=== PATIENT | male | born 1960 | race Caucasian/White ===

== ENCOUNTER 2017-07-29 10:36 | Outpatient (RCR) | payer BC, SELFPAY ==
[2017-07-29 12:59] LABS: International Normalized Ratio 2.5
== END 2017-07-29 11:00 | disposition home or self-care (01) ==
LOC: LAB 10:36
PROVIDERS: Family Provider Family Medicine; PCP Family Medicine; Visit Provider Internal Medicine Cardiovascular Disease
DX: I48.1 Persistent atrial fibrillation (principal)
CPT/HCPCS: 36415; 85610

== ENCOUNTER 2017-09-19 13:19 | Outpatient (RCR) | payer BC, SELFPAY ==
[2017-09-19 14:00] LABS: International Normalized Ratio 3.2; Prothrombin Time (Protime)PT. 32.7 SECONDS (11.7-14.9)
== END 2017-09-19 14:00 | disposition home or self-care (01) ==
LOC: LAB 13:19
PROVIDERS: Family Provider Family Medicine; PCP Family Medicine; Visit Provider Internal Medicine Cardiovascular Disease
DX: I48.92 Unspecified atrial flutter (principal); I48.91 Unspecified atrial fibrillation; Z79.01 Long term (current) use of anticoagulants
CPT/HCPCS: 36415; 85610

== ENCOUNTER 2017-12-13 10:23 | Outpatient (RCR) | payer BC, SELFPAY ==
[2017-12-13 11:04] LABS: International Normalized Ratio 3.4; Prothrombin Time (Protime)PT. 34.4 SECONDS (11.7-14.9)
== END 2017-12-13 11:00 | disposition home or self-care (01) ==
LOC: LAB 10:23
PROVIDERS: Family Provider Family Medicine; PCP Family Medicine; Visit Provider Internal Medicine Cardiovascular Disease
DX: I48.92 Unspecified atrial flutter (principal); I48.91 Unspecified atrial fibrillation; Z79.01 Long term (current) use of anticoagulants
CPT/HCPCS: 36415; 85610

== ENCOUNTER 2018-01-17 10:06 | Outpatient (RCR) | payer BC, SELFPAY ==
[2018-01-17 11:23] LABS: International Normalized Ratio 2.5; Prothrombin Time (Protime)PT. 27.5 SECONDS (11.7-14.9)
== END 2018-01-17 11:00 | disposition home or self-care (01) ==
LOC: LAB 10:06
PROVIDERS: Family Provider Family Medicine; PCP Family Medicine; Visit Provider Internal Medicine Cardiovascular Disease
DX: I48.92 Unspecified atrial flutter (principal); I48.91 Unspecified atrial fibrillation; Z79.01 Long term (current) use of anticoagulants
CPT/HCPCS: 36415; 85610

== ENCOUNTER 2018-02-28 09:40 | Outpatient (RCR) | payer BC, SELFPAY ==
[2018-02-28 10:13] LABS: Prothrombin Time (Protime)PT. 31.6 SECONDS (11.7-14.9)
== END 2018-02-28 11:00 | disposition home or self-care (01) ==
LOC: LAB 09:40
PROVIDERS: Family Provider Family Medicine; PCP Family Medicine; Visit Provider Internal Medicine Cardiovascular Disease
DX: I48.92 Unspecified atrial flutter (principal); I48.91 Unspecified atrial fibrillation; Z79.01 Long term (current) use of anticoagulants
CPT/HCPCS: 36415; 85610

== ENCOUNTER 2018-05-05 15:08 | Outpatient (RCR) | payer BC, SELFPAY ==
[2018-04-27 12:47] LABS: International Normalized Ratio 3.8
== END 2018-05-05 17:00 | disposition home or self-care (01) ==
LOC: LAB 15:08
PROVIDERS: Family Provider Family Medicine; PCP Family Medicine; Visit Provider Internal Medicine Cardiovascular Disease
DX: I48.92 Unspecified atrial flutter (principal); I48.91 Unspecified atrial fibrillation; Z79.01 Long term (current) use of anticoagulants
CPT/HCPCS: 36415; 85610

== ENCOUNTER → 2018-05-19 06:37 | Outpatient (CLI) | payer BC, SELFPAY ==
--- NOTE | 2018-05-19 14:12 | STRESSREP ---
Stress Test Report Date: 05/19/2018 Procedure: Pharmacologic stress nuclear imaging study Indications: Chest pain; cardiomyopathy; ablation; ICD Consent: Per the patient Procedure: The patient underwent pharmacologic (Regadenoson) evaluation with a peak heart rate of 93 beats per minute (57 predicted maximal heart rate) and a peak blood pressure of 142/100 mmHg. The baseline ECG demonstrated an underlying electronic ventricular paced rhythm. The peak pharmacologic ECG demonstrated no obvious ECG changes. There were no cardiac dysrhythmias pretest, during pharmacologic infusion, or recovery. There was no complaint of chest discomfort during pharmacologic infusion or recovery. The examination was discontinued secondary to completion of protocol. Impression: 1. Pharmacologic (Regadenoson) evaluation 2. Peak pharmacologic ECG with a continued electronic ventricular paced rhythm with no obvious ECG changes. 3. There were no cardiac dysrhythmias pretest, during pharmacologic infusion, or recovery. 4. Nuclear images pending Myocardial perfusion imaging study: Technique: The patient was injected with 14.1 millicuries of technetium 99m Cardiolite and subsequently rest SPECT Cardiolite nuclear imaging was obtained in the horizontal long, vertical long, and short axis views. The patient underwent pharmacologic (Regadenoson) evaluation with a peak heart rate of 93 beats per minute (57 % percent predicted maximal heart rate) and a peak blood pressure of 142/100 mmHg. The patient was injected with 41.7 millicuries of technetium 99m Cardiolite and subsequently stress SPECT Cardiolite nuclear imaging was obtained in the horizontal long, vertical long, and short axis views. A gated Cardiolite study at peak stress was obtained. Interpretation: Rest and stress SPECT Cardiolite nuclear imaging status post realignment, normalization, and attenuation correction demonstrate an area of diminished tracer uptake near the mid lateral segments as well as the apical segments without significant change between rest and stress. There are similar type findings on the resting and stress polar map images. There is end systolic thickening and brightening. The gated Cardiolite study demonstrates myocardial thickening and inward wall motion. The reported LVEF is 63%. Impression: 1. Rest and stress SPECT Cardiolite nuclear imaging demonstrate the appearance of an area of diminished tracer uptake near the mid lateral segments as well as the apical segments without significant change between rest and stress potentially compatible with areas of previous myocardial injury/infarction although the effects of soft tissue attenuation/artifact and apical thinning cannot necessarily be excluded. There are no myocardial perfusion changes considered diagnostic for stress-induced myocardial ischemia. 2. The gated Cardiolite study reports an LVEF of 63 %. 3. Of note: Based upon the SPECT images-right ventricular enlargement cannot be excluded. This note was generated with riskmethodsation software. It may contain incorrect words, spelling, and punctuation that were not noted in checking the note before signing.
--- NOTE | 2018-05-19 14:27 | STRESSREP_ITS ---
Stress Test Report Date: 05/19/2018 Procedure: Pharmacologic stress nuclear imaging study Indications: Chest pain; cardiomyopathy; ablation; ICD Consent: Per the patient Procedure: The patient underwent pharmacologic (Regadenoson) evaluation with a peak heart rate of 93 beats per minute (57 predicted maximal heart rate) and a peak blood pressure of 142/100 mmHg. The baseline ECG demonstrated an underlying electronic ventricular paced rhythm. The peak pharmacologic ECG demonstrated no obvious ECG changes. There were no cardiac dysrhythmias pretest, during pharmacologic infusion, or recovery. There was no complaint of chest discomfort during pharmacologic infusion or recovery. The examination was discontinued secondary to completion of protocol. Impression: 1. Pharmacologic (Regadenoson) evaluation 2. Peak pharmacologic ECG with a continued electronic ventricular paced rhythm with no obvious ECG changes. 3. There were no cardiac dysrhythmias pretest, during pharmacologic infusion, or recovery. 4. Nuclear images pending Myocardial perfusion imaging study: Technique: The patient was injected with 14.1 millicuries of technetium 99m Cardiolite and subsequently rest SPECT Cardiolite nuclear imaging was obtained in the horizontal long, vertical long, and short axis views. The patient underwent pharmacologic (Regadenoson) evaluation with a peak heart rate of 93 beats per minute (57 % percent predicted maximal heart rate) and a peak blood pressure of 142/100 mmHg. The patient was injected with 41.7 millicuries of technetium 99m Cardiolite and subsequently stress SPECT Cardiolite nuclear imaging was obtained in the horizontal long, vertical long, and short axis views. A gated Cardiolite study at peak stress was obtained. Interpretation: Rest and stress SPECT Cardiolite nuclear imaging status post realignment, normalization, and attenuation correction demonstrate an area of diminished tracer uptake near the mid lateral segments as well as the apical segments without significant change between rest and stress. There are similar type findings on the resting and stress polar map images. There is end systolic thic kening and brightening. The gated Cardiolite study demonstrates myocardial thickening and inward wall motion. The reported LVEF is 63%. Impression: 1. Rest and stress SPECT Cardiolite nuclear imaging demonstrate the appearance of an area of diminished tracer uptake near the mid lateral segments as well as the apical segments without significant change between rest and stress potentially compatible with areas of previous myocardial injury/infarction although the effects of soft tissue attenuation/artifact and apical thinning cannot necessarily be excluded. There are no myocardial perfusion changes considered diagnostic for stress-induced myocardial ischemia. 2. The gated Cardiolite study reports an LVEF of 63 %. 3. Of note: Based upon the SPECT images-right ventricular enlargement cannot be excluded. This note was generated with [employer] software. It may contain incorrect words, spelling, and punctuation that were not noted in checking the note before signing.
== END ==
PROVIDERS: Family Provider Family Medicine; PCP Family Medicine; Referring Provider Physician Assistant Medical; Visit Provider Physician Assistant Medical
DX: E11.9 Type 2 diabetes mellitus without complications (principal); R07.9 Chest pain, unspecified; I42.8 Other cardiomyopathies; E78.2 Mixed hyperlipidemia; Z95.810 Presence of automatic (implantable) cardiac defibrillator; I25.10 Atherosclerotic heart disease of native coronary artery without angina pectoris
CPT/HCPCS: 78452; 93017; A9500; A4216; J2785

== ENCOUNTER 2018-06-20 10:28 | Outpatient (RCR) | payer BC, SELFPAY ==
[2018-06-12 13:32] VITALS: BMI 45.8
[2018-06-20 11:31] LABS: Prothrombin Time (Protime)PT. 37.5 SECONDS (11.7-14.9)
[2018-06-20 11:52] LABS: International Normalized Ratio 3.8
== END 2018-06-20 11:00 | disposition home or self-care (01) ==
LOC: LAB 10:28
PROVIDERS: Family Provider Family Medicine; PCP Family Medicine; Referring Provider Internal Medicine Cardiovascular Disease; Visit Provider Internal Medicine Cardiovascular Disease
DX: I48.92 Unspecified atrial flutter (principal); I48.91 Unspecified atrial fibrillation; Z79.01 Long term (current) use of anticoagulants
CPT/HCPCS: 36415; 85610

== ENCOUNTER 2018-07-25 10:33 | Outpatient (RCR) | payer BC, SELFPAY ==
[2018-06-12 13:32] VITALS: BMI 45.8
[2018-07-16 16:55] LABS: International Normalized Ratio 1.6; Prothrombin Time (Protime)PT. 18.6 SECONDS (11.7-14.9)
[2018-07-25 11:05] LABS: International Normalized Ratio 2.2; Prothrombin Time (Protime)PT. 24.5 SECONDS (11.7-14.9)
== END 2018-07-25 11:00 | disposition home or self-care (01) ==
LOC: LAB 10:33
PROVIDERS: Family Provider Family Medicine; PCP Family Medicine; Referring Provider Internal Medicine Cardiovascular Disease; Visit Provider Internal Medicine Cardiovascular Disease
DX: I48.92 Unspecified atrial flutter (principal); I48.91 Unspecified atrial fibrillation; Z79.01 Long term (current) use of anticoagulants
CPT/HCPCS: 36415; 85610

== ENCOUNTER 2018-10-10 10:22 | Outpatient (RCR) | payer BC, SELFPAY ==
[2018-06-12 13:32] VITALS: BMI 45.8
[2018-08-21 15:18] VITALS: BMI 45.0
[2018-10-10 11:18] LABS: International Normalized Ratio 2.2; Prothrombin Time (Protime)PT. 24.4 SECONDS (11.7-14.9)
== END 2018-10-10 11:00 | disposition home or self-care (01) ==
LOC: LAB 10:22
PROVIDERS: Family Provider Family Medicine; PCP Family Medicine; Referring Provider Internal Medicine Cardiovascular Disease; Visit Provider Internal Medicine Cardiovascular Disease
DX: I48.92 Unspecified atrial flutter (principal); I48.91 Unspecified atrial fibrillation; Z79.01 Long term (current) use of anticoagulants
CPT/HCPCS: 36415; 85610

== ENCOUNTER 2018-12-22 11:32 | Outpatient (RCR) | payer BC, SELFPAY ==
[2018-08-21 15:18] VITALS: BMI 45.0
[2018-12-22 13:11] LABS: International Normalized Ratio 1.8
== END 2018-12-22 12:00 | disposition home or self-care (01) ==
LOC: LAB 11:32
PROVIDERS: Physician Assistant Medical; Family Provider Family Medicine; PCP Family Medicine; Referring Provider Internal Medicine Cardiovascular Disease; Visit Provider Internal Medicine Cardiovascular Disease
DX: Z79.01 Long term (current) use of anticoagulants (principal)
CPT/HCPCS: 36415; 85610

== ENCOUNTER 2019-01-30 09:29 | Outpatient (RCR) | payer BC, SELFPAY ==
[2018-08-21 15:18] VITALS: BMI 45.0
[2019-01-30 10:29] LABS: International Normalized Ratio 2.3; Prothrombin Time (Protime)PT. 25.2 SECONDS (11.7-14.9)
== END 2019-02-10 17:35 | disposition home or self-care (01) ==
LOC: LAB 09:29
PROVIDERS: Family Provider Family Medicine; PCP Family Medicine; Referring Provider Internal Medicine Cardiovascular Disease; Visit Provider Internal Medicine Cardiovascular Disease
DX: Z79.01 Long term (current) use of anticoagulants (principal)
CPT/HCPCS: 36415; 85610

== ENCOUNTER 2019-06-19 11:39 | Outpatient (RCR) | payer BC, SELFPAY ==
[2018-08-21 15:18] VITALS: BMI 45.0
[2019-04-16 14:01] VITALS: BMI 44.7
[2019-06-19 12:13] LABS: Prothrombin Time (Protime)PT. 22.3 SECONDS (11.7-14.9)
== END 2019-06-19 18:00 | disposition home or self-care (01) ==
LOC: LAB 11:39
PROVIDERS: Family Provider Family Medicine; PCP Family Medicine; Referring Provider Internal Medicine Cardiovascular Disease; Visit Provider Internal Medicine Cardiovascular Disease
DX: Z79.01 Long term (current) use of anticoagulants (principal)
CPT/HCPCS: 36415; 85610

== ENCOUNTER 2019-08-04 09:40 | Outpatient (RCR) | payer BC, SELFPAY ==
[2019-04-16 14:01] VITALS: BMI 44.7
[2019-08-04 10:46] LABS: International Normalized Ratio 2.5
== END 2019-08-04 18:00 | disposition home or self-care (01) ==
LOC: LAB 09:40
PROVIDERS: Family Provider Family Medicine; PCP Family Medicine; Referring Provider Internal Medicine Cardiovascular Disease; Visit Provider Internal Medicine Cardiovascular Disease
DX: Z79.01 Long term (current) use of anticoagulants (principal)
CPT/HCPCS: 36415; 85610

== ENCOUNTER 2019-11-27 11:47 | Outpatient (RCR) | payer BC, SELFPAY ==
[2019-04-16 14:01] VITALS: BMI 44.7
[2019-11-26 10:23] VITALS: BMI 44.7
[2019-11-27 12:32] LABS: International Normalized Ratio 2.2; Prothrombin Time (Protime)PT. 23.8 SECONDS (11.7-14.9)
== END 2019-11-27 18:00 | disposition home or self-care (01) ==
LOC: LAB 11:47
PROVIDERS: Physician Assistant Medical; Family Provider Family Medicine; PCP Family Medicine; Referring Provider Internal Medicine Cardiovascular Disease; Visit Provider Internal Medicine Cardiovascular Disease
DX: Z79.01 Long term (current) use of anticoagulants (principal)
CPT/HCPCS: 36415; 85610

== ENCOUNTER → 2020-10-13 14:27 | Outpatient (CLI) | payer BC, SELFPAY ==
[2020-09-29 08:35] VITALS: BMI 43.8
--- NOTE | 2020-10-13 14:29 | ECHOCS_ITS ---
Reason For Study: CHF Procedure This was a 2D Doppler, Color Flow transthoracic echocardiogram. The exam was of poor technical quality due to suboptimal acoustic windows.. Contrast injection was performed. Exam performed in department. Left Ventricle Normal LV size. Left ventricular systolic function is normal. The estimated ejection fraction is 53 %. No regional wall motion abnormalities noted. Right Ventricle Normal RV size. ICD or pacer leads identified within the right ventricle. Normal systolic function. Atria The left atrium is not well visualized. Mitral Valve Mitral valve not well visualized. Tricuspid Valve The tricuspid valve is not well visualized. Aortic Valve The aortic valve is not well visualized. Pulmonic Valve The pulmonic valve is not well visualized. Great Vessels Normal aortic root. The pulmonary artery is normal size. Pericardium/Pleural No pericardial effusion. Medication 22 gauge I.V. with prn adaptor inserted into right arm. Diluted definity 5.0ml given slow IV push to enhance endocardial definition. MMode/2D Measurements & Calculations Ao root diam: 3.3 cm LA dimension(2D): 5.2 cm Time Measurements MV dec time: 0.17 sec Doppler Measurements & Calculations MV E max kvng: 97.0 cm/sec Lat Peak E' Kvng: 12.4 cm/sec Med Peak E' Kvng: 10.4 cm/sec MV A max kvng: 30.0 cm/sec E/E' lat: 7.8 E/E' med: 9.3 MV E/A: 3.2 Ao V2 max: 107.8 cm/sec LV V1 max: 75.0 cm/sec PA V2 max: 78.8 cm/sec Ao max P.7 mmHg LV V1 max P.2 mmHg TR max kvng: 344.0 cm/sec TR max P.4 mmHg ECHO/Echo Complete W/ Contrast Interpretation Summary Normal LV size. Left ventricular systolic function is normal. The estimated ejection fraction is 53 %. Contrast injection was performed. The study was technically limited. The study was technically difficult. Ordering Physician: Antonio Leon Referring Physician: ROB SMILEY Performed By: Hermila Mayers, RDCS, RVT
== END ==
PROVIDERS: PCP Family Medicine; Referring Provider Internal Medicine Cardiovascular Disease; Visit Provider Internal Medicine Cardiovascular Disease
DX: I50.9 Heart failure, unspecified (principal); I42.8 Other cardiomyopathies
CPT/HCPCS: 93306; Q9957; A4216; C8929

== ENCOUNTER → 2021-04-27 14:34 | Outpatient (CLI) | payer BC, SELFPAY ==
[2021-04-27 14:58] LABS: Absolute Lymphocyte Count 1.63 X10^3/uL (0.83-4.51); Absolute Neutrophil Count 5.1 X10^3/uL (2.0-7.7); Basophil# 0.01 X10^3/uL; Basophil% 0.1 % (0-1); Eosinophil# 0.28 X10^3/uL; Eosinophils% 3.7 % (0-5); Hematocrit 40.1 % (40-54); Hemoglobin 13.4 g/dL (13.0-16.5); Lymphocyte # 1.63 X10^3/ul (0.83-4.51); Lymphocyte % 21.4 % (19-41); Mean Corp Hgb Conc 33.4 g/dL (32-36); Mean Corpuscular Hgb 30.2 pg (27.0-32.0); Mean Corpuscular Volume 90.3 fL (80-94); Mean Platelet Vol. 10.8 fl (6.2-12.0); Monocyte# 0.63 X10^3/uL; Monocyte% 8.3 % (0-10); NRBC Flagged by Analyzer 0 % (0-5); Neutrophil # 5.05 X10^3/uL (2.7-7.7); Neutrophil % 66.1 % (47-70); Platelet Count 141 K/mm3 (150-450); RBC Distribution Width CV 13.1 % (11.6-14.6); RBC Distribution Width SD 43.4 fl (35.1-43.9); Red Blood Count 4.44 M/mm3 (4.6-6.2); White Blood Count 7.6 K/mm3 (4.4-11.0)
[2021-04-27 15:17] LABS: Anion Gap 4 (5-15); BUN 25 mg/dL (7-18); BUN/Creat Ratio 18.9 RATIO (10-20); Calcium,Total 8.4 mg/dL (8.5-10.1); Chloride 113 mmol/L (98-107); Creatinine, Serum 1.32 mg/dL (0.70-1.30); EST Glomerular Filtration Rate 59 mL/min (>60); Est Glom Filt Rate - Afr Amer 71 mL/min (>60); Glucose 205 mg/dL (74-106); Potassium 4.5 mmol/L (3.5-5.1); Sodium Level 140 mmol/L (136-145)
[2021-04-27 15:21] LABS: Prothrombin Time (Protime)PT. 30.4 SECONDS (11.7-14.9)
== END ==
PROVIDERS: PCP Family Medicine; Referring Provider Nurse Practitioner Gerontology; Visit Provider Nurse Practitioner Gerontology
DX: R53.83 Other fatigue (principal); I95.1 Orthostatic hypotension; Z79.01 Long term (current) use of anticoagulants
CPT/HCPCS: 36415; 80048; 85025; 85610

== ENCOUNTER → 2021-11-05 | Outpatient (CLI) | payer OTHER, SELFPAY ==
[2021-11-05 17:20] LABS: Absolute Lymphocyte Count 1.79 X10^3/uL (0.83-4.51); Absolute Neutrophil Count 5.2 X10^3/uL (2.0-7.7); Basophil# 0.03 X10^3/uL; Basophil% 0.4 % (0-1); Eosinophils% 2.6 % (0-5); Hematocrit 40.7 % (40-54); Hemoglobin 13.5 g/dL (13.0-16.5); Lymphocyte # 1.79 X10^3/ul (0.83-4.51); Lymphocyte % 22.9 % (19-41); Mean Corp Hgb Conc 33.2 g/dL (32-36); Mean Corpuscular Hgb 29.9 pg (27.0-32.0); Mean Corpuscular Volume 90.2 fL (80-94); Mean Platelet Vol. 10.8 fl (6.2-12.0); Monocyte# 0.63 X10^3/uL; NRBC Flagged by Analyzer 0 % (0-5); Neutrophil # 5.16 X10^3/uL (2.7-7.7); Neutrophil % 65.8 % (47-70); Platelet Count 143 K/mm3 (150-450); RBC Distribution Width CV 12.8 % (11.6-14.6); RBC Distribution Width SD 42.2 fl (35.1-43.9); Red Blood Count 4.51 M/mm3 (4.6-6.2); White Blood Count 7.8 K/mm3 (4.4-11.0)
[2021-11-05 18:51] LABS: Anion Gap 8 (5-15); BUN 21 mg/dL (7-18); BUN/Creat Ratio 16.5 RATIO (10-20); Calcium,Total 8.4 mg/dL (8.5-10.1); Chloride 108 mmol/L (98-107); Creatinine, Serum 1.27 mg/dL (0.70-1.30); EST Glomerular Filtration Rate 61 mL/min (>60); Est Glom Filt Rate - Afr Amer 74 mL/min (>60); Free T3 2.2 pg/mL (2.18-3.98); Glucose 241 mg/dL (74-106); Sodium Level 138 mmol/L (136-145); T4 Free Direct 0.94 ng/dL (0.76-1.46); Thyroid Stim Hormone (TSH) 2.38 uIU/mL (0.358-3.74)
== END | disposition home or self-care (01) ==
LOC: LAB 16:28
PROVIDERS: PCP Family Medicine; Visit Provider Nurse Practitioner Gerontology
DX: R53.83 Other fatigue (principal)
CPT/HCPCS: 36415; 80048; 84439; 84443; 84481; 85025

== ENCOUNTER 2022-09-26 10:38 | Day surgery (SDC) | payer OTHER, SELFPAY ==
[2022-09-19 12:16] LABS: Bacteria 0 SEEN /hpf (None Seen); Mucous, Urine 0 SEEN /hpf (<or=2+); Red Blood Cells-Urine 0 SEEN /hpf (0-5); White Blood Cells 0 SEEN /hpf (0-5)
[2022-09-19 12:53] LABS: Color, Urine Yellow (Yellow); Glucose, Dipstick 250 mg/dl (Normal); Hematocrit 44.1 % (40-54); Hemoglobin 14.7 g/dL (13.0-16.5); Ketone-Dipstick Negative (Negative); Leukocyte Esterase-Dipstick Negative /ul (Negative); Mean Corp Hgb Conc 33.3 g/dL (32-36); Mean Corpuscular Hgb 29.8 pg (27.0-32.0); Mean Corpuscular Volume 89.5 fL (80-94); Mean Platelet Vol. 10.9 fl (6.2-12.0); Nitrite-Dipstick Negative (Negative); Occult Blood-Urine Negative /ul (Negative); Platelet Count 141 K/mm3 (150-450); Protein-Dipstick 15 mg/dl (Negative); RBC Distribution Width CV 12.8 % (11.6-14.6); RBC Distribution Width SD 42.3 fl (35.1-43.9); Red Blood Count 4.93 M/mm3 (4.6-6.2); Urine Bilirubin Dipstick Negative (Negative); Urine Clarity Sl. Cloudy (Clear); Urine Urobilinogen Normal (Normal); White Blood Count 7.4 K/mm3 (4.4-11.0)
[2022-09-19 13:09] LABS: Squamous Epithelial Cells - UA 0-5 SEEN /hpf (0-5)
[2022-09-19 13:32] LABS: Anion Gap 6 (5-15); BUN 22 mg/dL (7-18); BUN/Creat Ratio 18.6 RATIO (10-20); Calcium,Total 9.1 mg/dL (8.5-10.1); Chloride 108 mmol/L (98-107); Creatinine, Serum 1.18 mg/dL (0.70-1.30); EST Glomerular Filtration Rate 66 mL/min (>60); Est Glom Filt Rate - Afr Amer 80 mL/min (>60); Glucose 201 mg/dL (74-106); Potassium 4.7 mmol/L (3.5-5.1); Sodium Level 139 mmol/L (136-145)
[2022-09-19 13:40] LABS: International Normalized Ratio 1.9
[2022-09-25 07:38] VITALS: BMI 42.7
[2022-09-26 10:50] LABS: INR Fingerstick 2.3; Prothrombin Time Fingerstick 24.7 SEC (11.7-14.9)
--- NOTE | 2022-09-26 13:38 | EX.DEFIBPROC ---
Defibrillator Procedure Note Defibrillator Procedure Note Diagnosis: Nonischemic Cardiomyopathy with NYHA Class iii. ICD for primary prevention. Device generator replacement for normal battery depletion Preoperative diagnosis is device at end of life for normal battery depletion. Postoperative diagnosis same as above. After informed consent and IV antibiotics the patient was brought to the [facility] [place] catheterization laboratory and the skin over the device was prepped and draped in the usual sterile manner. Intermittent boluses of Versed, and fentanyl were used for sedation and analgesia as well as 1% subcutaneous lidocaine. An incision was made over the pre-existing device. Using blunt and Bovie dissection the pocket was opened and the device was removed. Careful attention was paid not to injure the pre-existing leads. The leads were removed from the device header and they were interrogated. There is normal lead function. Hemostasis was obtained. The pocket was flushed with antibiotic solution. The sponge and needle count were correct. The new device was brought to the field. The leads were placed in the appropriate position in the header and secured by the set screw. The leads and the device were then placed in the pocket. The pocket was closed with a deep layer of running 2-0 Vicryl, a superficial layer of running 4-0 Vicryl, skin with Steri-Strips which were covered with a rolled 4 x 4 and Tegaderm. Patient left the room with the device programmed to proper parameters and there were no complications. The pt's permanent atrial rhythm is fibrillation. The device is a [employer] [place] [employer] ICD generator. All lead parameters were tested and found to be functionally normal. Lead and device serial and model numbers are available in the chart documents provided by the device company sales representative marine supplies procedure summary.
== END 2022-09-26 15:30 | disposition home or self-care (01) ==
LOC: CLSP 10:39
PROVIDERS: Internal Medicine Cardiovascular Disease; PCP Family Medicine; Referring Provider Internal Medicine Cardiovascular Disease; Visit Provider Internal Medicine Cardiovascular Disease
DX: I48.11 Longstanding persistent atrial fibrillation (principal); I42.8 Other cardiomyopathies; I48.92 Unspecified atrial flutter; Z79.4 Long term (current) use of insulin; E11.9 Type 2 diabetes mellitus without complications; Z95.810 Presence of automatic (implantable) cardiac defibrillator; Z82.49 Family history of ischemic heart disease and other diseases of the circulatory system; Z79.01 Long term (current) use of anticoagulants; E66.9 Obesity, unspecified; E78.2 Mixed hyperlipidemia; Z86.74 Personal history of sudden cardiac arrest
CPT/HCPCS: 33264; 36415; 36416; 80048; 81001; 85027; 85610; 93641; 99152; 99153; J7040; J7050

== ENCOUNTER → 2022-10-10 | Outpatient (CLI) | payer OTHER, SELFPAY ==
[2022-10-10 12:22] LABS: Hematocrit 42.6 % (40-54); Hemoglobin 13.8 g/dL (13.0-16.5); Mean Corp Hgb Conc 32.4 g/dL (32-36); Mean Corpuscular Hgb 30.1 pg (27.0-32.0); Mean Corpuscular Volume 92.8 fL (80-94); Mean Platelet Vol. 11.6 fl (6.2-12.0); Platelet Count 174 K/mm3 (150-450); RBC Distribution Width CV 13.1 % (11.6-14.6); RBC Distribution Width SD 44.1 fl (35.1-43.9); Red Blood Count 4.59 M/mm3 (4.6-6.2); White Blood Count 7.6 K/mm3 (4.4-11.0)
== END | disposition home or self-care (01) ==
PROVIDERS: PCP Family Medicine; Referring Provider Internal Medicine Cardiovascular Disease; Visit Provider Internal Medicine Cardiovascular Disease
DX: Z95.810 Presence of automatic (implantable) cardiac defibrillator (principal); I50.22 Chronic systolic (congestive) heart failure; I48.11 Longstanding persistent atrial fibrillation; I47.20 Ventricular tachycardia, unspecified; Z98.890 Other specified postprocedural states
CPT/HCPCS: 36415; 85027

== ENCOUNTER 2022-10-17 18:41 | Emergency (ER) | payer OTHER, SELFPAY ==
[2022-10-17] VITALS (7 sets, daily range): BP systolic 176; BP diastolic 73; PULSE 59–68; RESP 18–22; TEMP 37.3; O2SAT 90–96; BMI 30.4
--- NOTE | 2022-10-17 19:39 | RAD_ITS ---
STUDY: X-RAY CHEST REASON FOR EXAM: Male, 62 years old. SOB TECHNIQUE: Single AP portable view of the chest. COMPARISON: January 05, 2015 FINDINGS: Dual chamber pacemaker device on the left is stable. The lungs are clear and expanded. There is no demonstrated pleural abnormality. Normal size heart. There are calcified mediastinal lymph nodes. Normal visualized pulmonary arteries. Normal visualized aortic arch and descending thoracic aorta. Normal visualized thoracic spine. Normal visualized ribs, clavicles, and shoulders. There is no demonstrated abnormality of the visualized soft tissue structures of the upper abdomen. RAD/Chest 1 View (Portable) IMPRESSION: Degenerative changes, as described above. No demonstrated acute cardiopulmonary process. Electronically Signed: Jim Haddad MD at 20:29 EDT ,
[2022-10-17 19:46] LABS: Absolute Lymphocyte Count 0.93 X10^3/uL (0.83-4.51); Absolute Neutrophil Count 9.3 X10^3/uL (2.0-7.7); Basophil# 0.02 X10^3/uL; Basophil% 0.2 % (0-1); Eosinophil# 0.07 X10^3/uL; Eosinophils% 0.6 % (0-5); Hematocrit 39.9 % (40-54); Hemoglobin 13.4 g/dL (13.0-16.5); Lymphocyte # 0.93 X10^3/ul (0.83-4.51); Lymphocyte % 8.4 % (19-41); Mean Corp Hgb Conc 33.6 g/dL (32-36); Mean Corpuscular Volume 89.3 fL (80-94); Mean Platelet Vol. 10.7 fl (6.2-12.0); Monocyte# 0.67 X10^3/uL; Monocyte% 6.1 % (0-10); NRBC Flagged by Analyzer 0 % (0-5); Neutrophil % 84.4 % (47-70); Platelet Count 133 K/mm3 (150-450); RBC Distribution Width CV 12.8 % (11.6-14.6); RBC Distribution Width SD 42.2 fl (35.1-43.9); Red Blood Count 4.47 M/mm3 (4.6-6.2)
[2022-10-17 20:08] LABS: Anion Gap 5 (5-15); BUN 23 mg/dL (7-18); BUN/Creat Ratio 15.6 RATIO (10-20); Calcium,Total 8.6 mg/dL (8.5-10.1); Chloride 107 mmol/L (98-107); Creatinine, Serum 1.47 mg/dL (0.70-1.30); EST Glomerular Filtration Rate 52 mL/min (>60); Est Glom Filt Rate - Afr Amer 62 mL/min (>60); Estimated Creatinine Clearance 57.19 ml/min; Glucose 227 mg/dL (74-106); Potassium 4.5 mmol/L (3.5-5.1); Sodium Level 135 mmol/L (136-145); Troponin-I HS 19 pg/mL (3.0-78.0)
[2022-10-17 20:15] LABS: International Normalized Ratio 1.7; Prothrombin Time (Protime)PT. 19.2 SECONDS (11.7-14.9)
--- NOTE | 2022-10-17 20:45 | ED.VIS.DYS ---
HPI History of Present Illness Chief Complaint: Shortness of Breath Onset/Context/Timing Onset: Weeks (1) Context: gradual Timing: Continuous Quality: Positive for Dyspnea on exertion and Wheezing Worsened by: Exertion Relieved by: Nothing Associated Symptoms cough and rhinorrhea; Negative for post nasal drip, ear pain, fever, sore throat, chills, sweats, clear sputum, white sputum, yellow sputum or green sputum Chest Pain: Positive for None Narrative Narrative: Patient presents with shortness of breath that has been getting worse over the past week. Patient states his shortness of breath is worse with any exertion. Patient states he feels wheezing in his chest. Patient states nothing seems to help with it. Patient admits to a cough but denies any sputum production. Patient admits to some rhinorrhea. Patient denies any fevers or chills. Patient denies any sore throat or ear pain. Patient denies any chest pain. Patient denies any nausea or vomiting. 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 Longstanding persistent atrial fibrillation Mixed hyperlipidemia Morbid obesity Non-ischemic cardiomyopathy Non-sustained ventricular tachycardia Nonobstructive atherosclerosis of coronary artery Obstructive sleep apnea Orthostatic hypotension Paroxysmal atrial fibrillation Home Medications ropinirole 0.25 mg tablet See Rx Instructions PO QHS 09/10/17 [History Last Taken Unknown] dulaglutide 0.75 mg/0.5 mL subcutaneous pen injector (Trulicity) 0.75 mg subcut QWEEK 09/16/17 [History Last Taken Unknown] insulin lispro 100 unit/mL subcutaneous cartridge 18 unit subcut TID 09/16/17 [History Last Taken Unknown] metformin 500 mg tablet,extended release 24 hr 500 mg PO QDAY 09/16/17 [History Last Taken 09/25/22] sertraline 100 mg tablet 100 mg PO QDAY 09/16/17 [History Last Taken Unknown] apremilast 30 mg tablet (Otezla) 30 mg PO BID 06/22/18 [History Last Taken Unknown] gabapentin 300 mg capsule 300 mg PO DAILY 04/27/21 [History Last Taken Unknown] insulin glargine 100 unit/mL (3 mL) subcutaneous pen 55 unit subcut DAILY 08/03/21 [History Last Taken Unknown] warfarin 3 mg tablet 3 mg PO .COMPLEX #100 tabs 11/02/21 [Rx Last Taken 09/25/22] carvedilol 6.25 mg tablet 6.25 mg PO BID #180 tabs 07/16/22 [Rx Last Taken 09/26/22] lovastatin 40 mg tablet 40 mg PO DAILY #90 tabs 07/30/22 [Rx Last Taken Unknown] azithromycin 250 mg tablet 250 mg PO DAILY #4 TABLETS 10/18/22 [Rx Last Taken Unknown] Allergy/AdvReac Type Severity Reaction Status Date / Time Penicillins Allergy Unknown Verified 09/19/22 11:16 Sulfa (Sulfonamide Allergy Unknown Verified 09/19/22 11:16 Antibiotics) Family History Father , in his late 60's from an CA CAD (coronary artery disease) Myocardial infarction Sudden cardiac Mother , Age 80, hx of CAD CAD (coronary artery disease) Brother CAD (coronary artery disease) Atrial fibrillation H/O cardiac radiofrequency ablation Cardiac pacemaker Brother unknown health history Brother CAD (coronary artery disease) Atrial fibrillation Other Family history of CVA Family history of hypertension Surgical History History of cataract surgery History of radiofrequency ablation (RFA) procedure for cardiac arrhythmia (01/06/15) History of right and left heart catheterization (09/23/14) Hx of atrioventricular node ablation (01/06/15) Presence of biventricular implantable cardioverter-defibrillator (ICD) (01/06/15) Social History Smoking Status: Never smoker ROS ROS ED Constitutional Constitutional ED: Denies chills or fever(s) Eyes Eyes: Denies blurry vision or change in vision ENT ENT ED: Reports rhinorrhea; Denies sore throat Cardiovascular Cardiovascular: Denies chest pain or palpitations Respiratory/Chest Respiratory/Chest: Reports cough and dyspnea Gastrointestinal Gastrointestinal: Denies nausea or vomiting Genitourinary Genitourinary ED: Denies dysuria or hematuria Musculoskeletal Musculoskeletal: Denies back pain or neck pain Integumentary Denies abscess or rash Neurologic Neurologic: Denies headache(s) or weakness Allergic/Immunologic Allergic/Immunologic ED: Denies mouth swelling or urticaria EXAM Physical Exam Const Vital Signs: 10/17/22 18:42 10/17/22 19:01 10/17/22 19:01 Temperature 99.2 F H Temperature Source Temporal Pulse Rate 59 L 60 Respiratory Rate 18 22 H Respiratory Effort Short of Breath Labored Respiratory Depth Respiratory Pattern Tachypnea Blood Pressure 176/73 H Blood Pressure Mean 107 Pulse Ox 96 96 Oxygen Delivery Method Room Air Room Air 10/17/22 19:35 10/17/22 19:35 10/17/22 20:25 Temperature Temperature Source Pulse Rate 60 Respiratory Rate 18 20 H Respiratory Effort Respiratory Depth Respiratory Pattern Blood Pressure Blood Pressure Mean Pulse Ox 94 93 Oxygen Delivery Method Room Air Room Air Room Air 10/17/22 21:41 10/17/22 21:41 10/17/22 21:00 Temperature Temperature Source Pulse Rate 60 65 Respiratory Rate 18 20 H 20 H Respiratory Effort Normal Non-Labored Short of Breath Respiratory Depth Normal Respiratory Pattern Normal Normal Blood Pressure Blood Pressure Mean Pulse Ox 94 90 Oxygen Delivery Method Room Air Room Air 10/17/22 23:00 Temperature Temperature Source Pulse Rate 68 Respiratory Rate 20 H Respiratory Effort Respiratory Depth Respiratory Pattern Blood Pressure Blood Pressure Mean Pulse Ox 96 Oxygen Delivery Method Room Air Positive well nourished, well developed and obese General Appearance ED: well developed and NAD Nutritional Appearance: obese HEENT Reports moist mucous membranes Neck supple and no JVD Resp normal respiratory effort Auscultation: wheezes scattered wheezes Cardio regular rate and regular rhythm GI normal to inspection, nondistended, normoactive bowel sounds and non-tender Palpation: soft Extremity normal to inspection General Extremety ED: Negative for edema or tenderness General Extremity: Negative for edema Neuro oriented x3, CN's II-XII intact bilaterally and no sensory deficits noted Sensorium / Orientation: alert Motor Exam: strength 5/5 throughout Psych mental status grossly normal Skin no rashes or lesions noted MDM MDM MDM Narrative Medical decision making narrative: Differential diagnosis includes pneumonia, thorax, cardiac dysrhythmia, cardiac ischemia, anemia, electrolyte abnormality, and COVID infection. EKG will be obtained to assess for cardiac dysrhythmia and cardiac ischemia. Chest x-ray will be obtained to assess for pneumonia and pneumothorax. CBC will be obtained to assess for leukocytosis and anemia. Basic metabolic profile will be obtained to assess for electrolyte abnormality and renal function. PT was INR will be obtained to assess for coagulopathy. High-sensitivity troponin will be obtained to assess for cardiac ischemia. D-dimer will be obtained to assess for any embolism. COVID-19 rapid antigen will be obtained to assess for COVID infection. History & Record Review Additional record(s) reviewed:: Prior labs Lab Data Attestation: I reviewed the patient's lab results. Lab results narrative: CBC was reviewed and was within normal limits. Basic metabolic profile was reviewed. BUN was slightly elevated at 23 and creatinine was 1.47. Patient has had similar results in the past. Pro time was INR was reviewed. Pro time was 19.2 and INR was 1.7. COVID-19 rapid antigen was reviewed and was negative. D-dimer was reviewed and was elevated at 0.98. Labs: Laboratory Results - last 24 hr 10/17/22 10/17/22 10/17/22 19:30 19:30 19:30 WBC 11.0 RBC 4.47 L Hgb 13.4 Hct 39.9 L MCV 89.3 MCH 30.0 MCHC 33.6 RDW Std Deviation 42.2 RDW Coeff of Ladan 12.8 Plt Count 133 L MPV 10.7 Immature Gran % (Auto) 0.300 Neut % (Auto) 84.4 H Lymph % (Auto) 8.4 L [place] % (Auto) 6.1 Eos % (Auto) 0.6 Baso % (Auto) 0.2 Absolute Neuts (auto) 9.3 H Absolute Lymphs (auto) 0.93 Nucleated RBC % 0 PT 19.2 H INR 1.7 D-Dimer Quant (PE/DVT) Sodium 135 L Potassium 4.5 Chloride 107 Carbon Dioxide 23.0 Anion Gap 5 BUN 23 H Creatinine 1.47 H Estim Creat Clear Calc 57.19 Est GFR (MDRD) Af Amer 62 Est GFR (MDRD) Non-Af 52 L BUN/Creatinine Ratio 15.6 Glucose 227 H Calcium 8.6 Troponin I High Sens 19 10/17/22 21:40 WBC RBC Hgb Hct MCV MCH MCHC RDW Std Deviation RDW Coeff of Ladan Plt Count MPV Immature Gran % (Auto) Neut % (Auto) Lymph % (Auto) [place] % (Auto) Eos % (Auto) Baso % (Auto) Absolute Neuts (auto) Absolute Lymphs (auto) Nucleated RBC % PT INR D-Dimer Quant (PE/DVT) 0.98 H* Sodium Potassium Chloride Carbon Dioxide Anion Gap BUN Creatinine Estim Creat Clear Calc Est GFR (MDRD) Af Amer Est GFR (MDRD) Non-Af BUN/Creatinine Ratio Glucose Calcium Troponin I High Sens Radiography Diagnostic Testing: Clinical Impression(s) from Imaging Studies Chest X-Ray 10/17/22 19:39 IMPRESSION: Degenerative changes, as described above. No demonstrated acute cardiopulmonary process. Electronically Signed: Jim Haddad MD at 20:29 EDT , Chest CTA 10/17/22 22:26 IMPRESSION: CTA chest examination, without a demonstrated pulmonary embolism or arterial dissection. Bilateral pneumonia. Electronically Signed: Jim Haddad MD at 23:47 EDT , Portable 1 view chest x-ray was obtained. On my independent interpretation, lung scherer are clear. There is normal cardiac silhouette. Bony thorax is normal. There is no acute process noted. Radiologist also interpreted the x-ray and agrees. Because of the elevated D-dimer, CTA of the chest was obtained. There is no pulmonary embolism or aortic dissection. There are are bilateral lower lobe infiltrates. This was interpreted by the radiologist and was also independently reviewed by myself. EKG Initial EKG: Attestation: I personally reviewed and interpreted this EKG as follows: Interpretation: Paced (60) and Non-Specific ST Changes Prior EKG tracings: available for review Prior: Unchanged (09/19/2022) Treatment and Re-Evaluation :: Patient was given a DuoNeb aerosol here. Patient was given IV fluids. Patient was advised of his findings. Patient was feeling better on reevaluation. Patient was ambulated on room air with a pulse oximeter. Patient maintained an oxygen saturation 97% on room air with ambulation. Without being hypoxic, I feel the patient will be able to be discharged home. Patient was given a dose of Zithromax here. Patient is given a prescription for Zithromax. This is the antibiotic that interacts with Coumadin the least. Patient was instructed to watch for any signs of bleeding. Patient was instructed to return if worse in any way. Patient was instructed to follow-up with his primary care physician in 5 to 7 days. Patient understood and was agreeable with the plan. All questions were answered. Discharge Plan Triage Chief Complaint: Shortness of Breath ED Provider: Michael Doll Dx/Rx/DC Orders Clinical Impression: Pneumonia, FPC current use of anticoagulant, Longstanding persistent atrial fibrillation Instructions: ED Pneumonia (Adult) Prescriptions: New azithromycin [azithromycin] 250 mg tablet 250 mg PO DAILY Qty: 4 0RF No Action ropinirole 0.25 mg tablet See Rx Instructions PO QHS Label Comments: 0.25 MG, 1-2 Tablets PO QHS Rx Instructions: 0.25 MG, 1-2 Tablets PO QHS metformin 500 mg tablet extended release 24 hr 500 mg PO QDAY sertraline 100 mg tablet 100 mg PO QDAY dulaglutide [Trulicity] 0.75 mg/0.5 mL pen injector 0.75 mg SC QWEEK gabapentin 300 mg capsule 300 mg PO DAILY warfarin 3 mg tablet 3 mg PO .COMPLEX Qty: 100 4RF Protocol: Dose Management Condition: Friday Dose/Route: 4.5 mg Instruction: 1.5 x 3 mg tablets Condition: Friday Dose/Route: 3 mg Instruction: 1 x 3 mg tablet Condition: Friday Dose/Route: 3 mg Instruction: 1 x 3 mg tablet Condition: Friday Dose/Route: 3 mg Instruction: 1 x 3 mg tablet Condition: Dose/Route: 3 mg Instruction: 1 x 3 mg tablet Condition: Friday Dose/Route: 4.5 mg Instruction: 1.5 x 3 mg tablets Condition: Friday Dose/Route: 4.5 mg Instruction: 1.5 x 3 mg tablets Protocol Text: Adjustment Start Date: 10/10/22 INR Value: 2.8 INR Date: 10/10/22 Rx Instructions: 3 mg PO 1.5 tablets on , , Fri and 1 tablet daily the rest of the week, or as directed; insulin lispro 100 UNIT/ML cartridge 18 unit SC TID Label Comments: WITH MEALS insulin glargine 100 unit/mL (3 mL) insulin pen 55 unit SC DAILY Otezla 30 mg tablet 30 mg PO BID carvedilol 6.25 mg tablet 6.25 mg PO BID Qty: 180 3RF Rx Instructions: must administer with a meal/food lovastatin 40 mg tablet 40 mg PO DAILY Qty: 90 3RF Primary Care Provider: Ramsey Chairez Referrals: Ramsey Chairez MD [Primary Care Provider] - 5-7 Days Activity Restrictions/Additional Instructions: All antibiotics for pneumonia will interact with Coumadin, so please watch for any bleeding or easy bruising. Disposition Disposition: Home, Self Care
[2022-10-17] MEDS: Ipratropium/Albuterol Sulfate 3 ML AMPUL.NEB INHALATION (21:41)
[2022-10-17 22:15] LABS: D-Dimer Quantitative (DVT/PE) 0.98 FEU/ug/m (0.27-0.49)
--- NOTE | 2022-10-17 22:26 | CT_ITS ---
STUDY: CTA CHEST REASON FOR EXAM: Male, 62 years old. Elevated D-dimer RADIATION DOSAGE (If Supplied By Facility): CTDIvol = ( 72.19 ) mGy, DLP = ( 810.79 ) mGycm TECHNIQUE: The examination was performed with the intravenous administration of IV 100mL [id number]-[id number]. Post-processing of the angiographic images was performed, with multiplanar reformation and 3D reconstruction. Individualized dose optimization techniques were used for this CT. COMPARISON: Chest x-ray FINDINGS: There is a pacemaker device on the right. Normal enhancement of the main pulmonary artery and right and left pulmonary arteries. Normal enhancement of the bilateral peripheral pulmonary arteries. There is no demonstrated pulmonary embolism. Normal thoracic aorta and visualized great vessels. There is no demonstrated aortic dissection. There are calcifications of the coronary arteries. There are calcified mediastinal lymph nodes. Normal hilar regions. Normal visualized trachea and bronchi. The lungs are well expanded. There is patchy lower lung airspace consolidation. There are granulomatous calcifications. Normal pleura. Normal chest wall structures. Normal osseous structures. Normal visualized upper abdomen. CT/CTA Chest W/WO Contrast IMPRESSION: CTA chest examination, without a demonstrated pulmonary embolism or arterial dissection. Bilateral pneumonia. Electronically Signed: Jim Haddad MD at 23:47 EDT ,
[2022-10-18] VITALS: O2SAT 96
[2022-10-18] MEDS: Azithromycin 250 MG Tablet 500 MG PO (00:05)
[2022-10-18 00:11] VITALS: BP 148/79; PULSE 67; RESP 20; O2SAT 96
== END 2022-10-18 00:14 | disposition home or self-care (01) ==
PROVIDERS: Emergency Provider Emergency Medicine; PCP Family Medicine; Visit Provider Emergency Medicine
DX: J18.9 Pneumonia, unspecified organism (principal); I50.22 Chronic systolic (congestive) heart failure; I48.19 Other persistent atrial fibrillation; E11.9 Type 2 diabetes mellitus without complications; E78.2 Mixed hyperlipidemia; I25.10 Atherosclerotic heart disease of native coronary artery without angina pectoris; Z79.01 Long term (current) use of anticoagulants; E66.9 Obesity, unspecified; G47.33 Obstructive sleep apnea (adult) (pediatric); Z86.74 Personal history of sudden cardiac arrest
CPT/HCPCS: 71045; 71275; 80048; 84484; 85025; 85379; 85610; 87811; 93005; 94640; 94760; 96360; 99252; 99284; J7040; Q9967; A4216; G0463

== ENCOUNTER → 2022-10-28 | Outpatient (CLI) | payer OTHER, SELFPAY ==
[2022-10-28 17:07] LABS: Anion Gap 4 (5-15); BNP,B-Type NATRIURETIC PEPTIDE 112.9 pg/mL (0-100); BUN 20 mg/dL (7-18); BUN/Creat Ratio 15.6 RATIO (10-20); Calcium,Total 8.5 mg/dL (8.5-10.1); Chloride 109 mmol/L (98-107); Creatinine, Serum 1.28 mg/dL (0.70-1.30); EST Glomerular Filtration Rate 60 mL/min (>60); Est Glom Filt Rate - Afr Amer 73 mL/min (>60); Glucose 178 mg/dL (74-106); Potassium 4.1 mmol/L (3.5-5.1); Sodium Level 137 mmol/L (136-145)
== END | disposition home or self-care (01) ==
LOC: LAB 16:05
PROVIDERS: PCP Family Medicine; Referring Provider Nurse Practitioner Gerontology; Visit Provider Nurse Practitioner Gerontology
DX: I50.22 Chronic systolic (congestive) heart failure (principal); I42.8 Other cardiomyopathies; R60.0 Localized edema
CPT/HCPCS: 36415; 80048; 83880

== ENCOUNTER → 2022-11-08 | Outpatient (CLI) | payer OTHER, SELFPAY ==
[2022-11-08 14:13] LABS: Anion Gap 3 (5-15); BUN 17 mg/dL (7-18); BUN/Creat Ratio 13.3 RATIO (10-20); Chloride 107 mmol/L (98-107); Creatinine, Serum 1.28 mg/dL (0.70-1.30); EST Glomerular Filtration Rate 60 mL/min (>60); Est Glom Filt Rate - Afr Amer 73 mL/min (>60); Glucose 218 mg/dL (74-106); Potassium 4.5 mmol/L (3.5-5.1); Sodium Level 135 mmol/L (136-145)
== END | disposition home or self-care (01) ==
PROVIDERS: PCP Family Medicine; Referring Provider Nurse Practitioner Gerontology; Visit Provider Nurse Practitioner Gerontology
DX: R60.0 Localized edema (principal)
CPT/HCPCS: 36415; 80048

== ENCOUNTER 2023-02-05 11:20 | Outpatient (CLI) | payer OTHER, SELFPAY ==
--- NOTE | 2023-02-05 11:24 | RAD_ITS ---
STUDY: X-RAY - RIGHT ELBOW REASON FOR EXAM: Male, 62 years old. Right elbow pain following a fall. TECHNIQUE: 3 view(s) of the elbow. COMPARISON: None. FINDINGS: Normal visualized humerus, radius and ulna. Normal radiocapitellar and ulnotrochlear articulations. Soft tissue swelling. RAD/Elbow min 3 Views IMPRESSION: Soft tissue swelling. Electronically Signed: Mitesh Leiva MD at 12:22 EDT ,
--- NOTE | 2023-02-05 11:24 | RAD_ITS ---
STUDY: X-RAY - LEFT ELBOW REASON FOR EXAM: Male, 62 years old. Left elbow pain following a fall. TECHNIQUE: 3 view(s) of the elbow. COMPARISON: None. FINDINGS: Normal visualized humerus, radius and ulna. Normal radiocapitellar and ulnotrochlear articulations. Soft tissue swelling. RAD/Elbow min 3 Views IMPRESSION: Soft tissue swelling. Electronically Signed: Mitesh Leiva MD at 12:21 EDT ,
--- NOTE | 2023-02-05 11:26 | RAD_ITS ---
STUDY: X-RAY - UNILATERAL RIBS ( LEFT ) WITH CHEST REASON FOR EXAM: Male, 62 years old. Left rib pain following a fall. TECHNIQUE - RIBS: 5 view(s) of the ribs. TECHNIQUE - CHEST: Single PA view of the chest. COMPARISON: Comparison is made with prior examination October 17, 2022. FINDINGS - RIBS: Normal visualized ribs without a demonstrated fracture. FINDINGS - CHEST: Mild degree of vascular congestion. Small left pleural effusion with increased markings at both lung bases right worse on the left side suggestive of a bibasilar atelectasis. Blunting of the right costophrenic angle. There is borderline cardiomegaly. A right-sided dual-chamber pacemaker is seen. Calcified left paratracheal lymph nodes. Normal visualized pulmonary arteries. Normal visualized aortic arch and descending thoracic aorta. There are diffuse degenerative changes of the visualized thoracic spine. Normal visualized ribs, clavicles, and shoulders. There is no demonstrated abnormality of the visualized soft tissue structures of the upper abdomen. RAD/Ribs Uni Min 3V w/PA Chest IMPRESSION: RIBS: Normal x-ray examination of the ribs. CHEST: Findings suggest a mild degree of CHF with superimposed bibasilar atelectasis and small left pleural effusion. Blunting of the right costophrenic angle. Electronically Signed: Mitesh Leiva MD at 12:24 EDT ,
--- NOTE | 2023-02-05 12:50 | RAD_ITS ---
STUDY: X-RAY CHEST REASON FOR EXAM: Male, 62 years old. Left chest wall injury w/ sob TECHNIQUE: Single lateral view of the chest was obtained. COMPARISON: None. FINDINGS: Findings suggestive of increased linear markings at the lung bases. There is no demonstrated pleural abnormality. Normal size heart. A dual-chamber pacemaker device is seen. Calcified mediastinal lymph nodes. Normal visualized pulmonary arteries. Normal visualized aortic arch and descending thoracic aorta. There is demineralization of the osseous structures. Normal visualized ribs, clavicles, and shoulders. There is no demonstrated abnormality of the visualized soft tissue structures of the upper abdomen. RAD/Chest 1 View IMPRESSION: Limited study. Findings suggestive of mild bibasilar atelectasis. Electronically Signed: Mitesh Leiva MD at 13:13 EDT ,
== END 2023-02-05 23:59 | disposition home or self-care (01) ==
LOC: MTRAD 11:22
PROVIDERS: PCP Family Medicine; Referring Provider Physician Assistant; Visit Provider Physician Assistant
DX: S20.212A Contusion of left front wall of thorax, initial encounter (principal); I50.22 Chronic systolic (congestive) heart failure; I48.20 Chronic atrial fibrillation, unspecified; E11.9 Type 2 diabetes mellitus without complications; Z79.4 Long term (current) use of insulin; S50.01XA Contusion of right elbow, initial encounter; S22.42XA Multiple fractures of ribs, left side, initial encounter for closed fracture; E78.2 Mixed hyperlipidemia; Z79.01 Long term (current) use of anticoagulants; Z79.899 Other long term (current) drug therapy; Z79.85 Long-term (current) use of injectable non-insulin antidiabetic drugs; Z79.84 Long term (current) use of oral hypoglycemic drugs; Z95.810 Presence of automatic (implantable) cardiac defibrillator; S50.02XA Contusion of left elbow, initial encounter; J90 Pleural effusion, not elsewhere classified; J18.9 Pneumonia, unspecified organism; W01.10XA Fall on same level from slipping, tripping and stumbling with subsequent striking against unspecified object, initial encounter; Y99.0 Civilian activity done for income or pay; Y92.69 Other specified industrial and construction area as the place of occurrence of the external cause
CPT/HCPCS: 71045; 71101; 71250; 73080; 80048; 85025; 85610; 99284; A4216

== ENCOUNTER 2023-02-05 13:35 | Emergency (ER) | payer OTHER, MEDICAID, SELFPAY ==
[2023-02-05 13:37] VITALS: BP 166/82; PULSE 60; RESP 18; TEMP 36.8; O2SAT 98
--- NOTE | 2023-02-05 13:57 | ED.RN ---
CALLED TRASHMAN DANIEL SOL AT [phone] INQUIRING ABOUT DRUG SCREEN. DANILE STATES THAT I NEED TO FOLLOW UP WITH HEAD OF DEPARTMENT ROJELIO JOHNSON ([phone] [id number])- ROJELIO STATES NO DRUG SCREEN NEEDED AT THIS TIME.
--- NOTE | 2023-02-05 14:32 | ED.VIS.FALL ---
HPI HPI - Fall History of Present Illness Chief Complaint: Fall Informant: patient Occured/Mechanism Occurred: Days (4) Mechanism/Context: Yes same level fall and Yes trip Pain/Injury Location: Left ribs Pain Location: chest Quality of Pain: Sharp Worsened by: Breathing Relieved by: Nothing Associated Symptoms Associated Symptoms: Negative for Parasthesias, Weakness, Loss of function, Inability to ambulate, Loss of consciousness or Amnesia Narrative Narrative: Patient presents with left rib pain that began after a fall 4 days ago. Patient states he tripped while he was at work. Patient states he landed on both elbows and his left chest. Patient went to the urgent care and had x-rays done today. Patient states x-ray showed a pleural effusion. Patient states his elbow x-rays were negative. Patient was then referred to the emergency department for further evaluation of the pleural effusion. Patient describes his pain as sharp. Patient states the pain is worse with breathing. Patient denies any cough. Patient denies any fevers or chills. Patient is on Coumadin for chronic atrial fibrillation. [facility] Medical History Atrial flutter Chronic systolic heart failure Contusion of left chest wall Contusion of right elbow Diabetes mellitus History of cardiac arrest Left elbow contusion MCC current use of anticoagulant Longstanding persistent atrial fibrillation Mixed hyperlipidemia Morbid obesity Non-ischemic cardiomyopathy Non-sustained ventricular tachycardia Nonobstructive atherosclerosis of coronary artery Obstructive sleep apnea Orthostatic hypotension Paroxysmal atrial fibrillation Pleural effusion, left Home Medications ropinirole 0.25 mg tablet See Rx Instructions PO QHS 09/10/17 [History Last Taken Unknown] dulaglutide 0.75 mg/0.5 mL subcutaneous pen injector (Trulicity) 0.75 mg subcut QWEEK 09/16/17 [History Last Taken Unknown] insulin lispro 100 unit/mL subcutaneous cartridge 18 unit subcut TID 09/16/17 [History Last Taken Unknown] metformin 500 mg tablet,extended release 24 hr 500 mg PO QDAY 09/16/17 [History Last Taken 09/25/22] sertraline 100 mg tablet 100 mg PO QDAY 09/16/17 [History Last Taken Unknown] apremilast 30 mg tablet (Otezla) 30 mg PO BID 06/22/18 [History Last Taken Unknown] gabapentin 300 mg capsule 300 mg PO DAILY 04/27/21 [History Last Taken Unknown] insulin glargine 100 unit/mL (3 mL) subcutaneous pen 55 unit subcut DAILY 08/03/21 [History Last Taken Unknown] lovastatin 40 mg tablet 40 mg PO DAILY #90 tabs 07/30/22 [Rx Last Taken Unknown] warfarin 3 mg tablet 3 mg PO .COMPLEX #100 tabs 11/11/22 [Rx Last Taken Unknown] carvedilol 6.25 mg tablet 6.25 mg PO BID 02/05/23 [History Last Taken Unknown] doxycycline monohydrate 100 mg capsule 100 mg PO BID #20 CAPSULES 02/05/23 [Rx Last Taken Unknown] hydrocodone-acetaminophen 5-325mg 5mg-325mg 1 tab PO Q6H PRN PRN Pain 3 days #10 TABLETS 02/05/23 [Rx Last Taken Unknown] Allergy/AdvReac Type Severity Reaction Status Date / Time Penicillins Allergy Unknown Verified 02/05/23 13:37 Sulfa (Sulfonamide Allergy Unknown Verified 02/05/23 13:37 Antibiotics) Family History Father , in his late 60's from an [place] CAD (coronary artery disease) Myocardial infarction Sudden cardiac Mother , Age 80, hx of CAD CAD (coronary artery disease) Brother CAD (coronary artery disease) Atrial fibrillation H/O cardiac radiofrequency ablation Cardiac pacemaker Brother unknown health history Brother CAD (coronary artery disease) Atrial fibrillation Other Family history of CVA Family history of hypertension Surgical History History of cataract surgery History of radiofrequency ablation (RFA) procedure for cardiac arrhythmia (01/06/15) History of right and left heart catheterization (09/23/14) Hx of atrioventricular node ablation (01/06/15) Presence of biventricular implantable cardioverter-defibrillator (ICD) (01/06/15) Social History Smoking Status: Never smoker ROS ROS ED Constitutional Constitutional ED: Denies chills or fever(s) Eyes Eyes: Denies blurry vision or change in vision ENT ENT ED: Denies rhinorrhea or sore throat Cardiovascular Cardiovascular: Reports chest pain; Denies palpitations Respiratory/Chest Respiratory/Chest: Reports dyspnea; Denies cough Gastrointestinal Gastrointestinal: Denies nausea or vomiting Genitourinary Genitourinary ED: Denies dysuria or hematuria Musculoskeletal Musculoskeletal: Reports back pain; Denies neck pain Integumentary Denies abscess or rash Neurologic Neurologic: Denies headache(s) or weakness Allergic/Immunologic Allergic/Immunologic ED: Denies mouth swelling or urticaria EXAM Physical Exam Const Vital Signs: 02/05/23 13:37 02/05/23 14:00 Temperature 98.2 F Temperature Source Temporal Pulse Rate 60 Respiratory Rate 18 Respiratory Effort Normal Non-Labored Blood Pressure 166/82 H Blood Pressure Mean 110 Pulse Ox 98 Oxygen Delivery Method Room Air Positive well nourished and well developed General Appearance ED: well developed and NAD HEENT Reports moist mucous membranes Neck supple and no JVD Resp normal respiratory effort Auscultation: diminished lung sounds left lower Cardio regular rate Rhythm: abnormal rhythm irregularly irregular GI normal to inspection, nondistended, normoactive bowel sounds and non-tender Palpation: soft Extremity normal to inspection General Extremety ED: Negative for edema or tenderness General Extremity: Negative for edema Neuro oriented x3, CN's II-XII intact bilaterally and no sensory deficits noted [place] Coma Scale: document GCS findings Spontaneous Obeys Commands Oriented 15 Sensorium / Orientation: alert Motor Exam: strength 5/5 throughout Psych mental status grossly normal Skin no rashes or lesions noted MDM MDM MDM Narrative Medical decision making narrative: Differential diagnosis includes hemothorax, occult rib fracture, coagulopathy, and anemia. CBC will be obtained to assess for anemia and leukocytosis. PT was INR and PTT will be obtained to assess for coagulopathy. Basic metabolic profile will be obtained to assess for electrolyte abnormality and renal function. CT scan of the chest will be obtained to assess for pleural effusion and occult rib fracture. Lab Data Attestation: I reviewed the patient's lab results. Lab results narrative: CBC was reviewed and was within normal limits. PT was INR was reviewed and was therapeutic at 2.0. Basic metabolic profile was reviewed and was within normal limits. Labs: Laboratory Results - last 24 hr 02/05/23 15:04 WBC 8.4 RBC 4.69 Hgb 13.9 Hct 42.8 MCV 91.3 MCH 29.6 MCHC 32.5 RDW Std Deviation 44.3 H RDW Coeff of [place] 13.2 Plt Count 147 L MPV 10.9 Immature Gran % (Auto) 0.400 Neut % (Auto) 65.4 Lymph % (Auto) 21.0 [place] % (Auto) 9.7 Eos % (Auto) 3.0 Baso % (Auto) 0.5 Absolute Neuts (auto) 5.5 Absolute Lymphs (auto) 1.76 Nucleated RBC % 0 PT 22.9 H INR 2.0 Sodium 140 Potassium 4.1 Chloride 109 H Carbon Dioxide 29.0 Anion Gap 2 L BUN 20 H Creatinine 1.14 Estim Creat Clear Calc 73.74 Est GFR (MDRD) Af Amer 83 Est GFR (MDRD) Non-Af 69 BUN/Creatinine Ratio 17.5 Glucose 118 H Calcium 8.9 Radiography Diagnostic Testing: Clinical Impression(s) from Imaging Studies Chest CT 02/05/23 14:37 IMPRESSION: Patchy infiltrate in the peripheral aspect of the left lower lobe with a tiny left pleural effusion. Calcified pleural plaques bilaterally. Electronically Signed: Mitesh Leiva MD at 15:41 EDT , CT scan of the chest was obtained. There is a patchy infiltrate in the left lower lobe with a tiny left pleural effusion. There are nondisplaced fractures of the left sixth and seventh ribs. This was interpreted by the radiologist was also independently reviewed by myself. Treatment and Re-Evaluation Narrative: Patient was advised of his findings. Patient was given prescription for Zithromax. Patient was also given a prescription for [place]. Patient was instructed to take 10-15 deep breaths every hour while awake. Patient was instructed to follow-up with his primary care physician in 5 to 7 days. Patient understood and was agreeable with the plan. All questions were answered. Discharge Plan Triage Chief Complaint: Fall ED Provider: Michael Doll Dx/Rx/DC Orders Clinical Impression: Multiple rib fractures, Left elbow contusion, Contusion of right elbow, Pleural effusion, left, Left lower lobe pneumonia Instructions: ED Contusion, Elbow, ED Rib Fracture, ED Pneumonia (Adult) Prescriptions: New hydrocodone-acetaminophen [hydrocodone-acetaminophen] 5-325 mg tablet 1 tab PO Q6H PRN PRN (Reason: Pain) 3 Days Qty: 10 0RF doxycycline monohydrate 100 mg capsule 100 mg PO BID Qty: 20 0RF No Action ropinirole 0.25 mg tablet See Rx Instructions PO QHS Patient Comments: 0.25 MG, 1-2 Tablets PO QHS Rx Instructions: 0.25 MG, 1-2 Tablets PO QHS metformin 500 mg tablet extended release 24 hr 500 mg PO QDAY sertraline 100 mg tablet 100 mg PO QDAY dulaglutide [Trulicity] 0.75 mg/0.5 mL pen injector 0.75 mg SC QWEEK gabapentin 300 mg capsule 300 mg PO DAILY carvedilol 6.25 mg tablet 6.25 mg PO BID Rx Instructions: must administer with a meal/food insulin lispro 100 UNIT/ML cartridge 18 unit SC TID Patient Comments: WITH MEALS insulin glargine 100 unit/mL (3 mL) insulin pen 55 unit SC DAILY Otezla 30 mg tablet 30 mg PO BID lovastatin 40 mg tablet 40 mg PO DAILY Qty: 90 3RF warfarin 3 mg tablet 3 mg PO .COMPLEX Qty: 100 4RF Protocol: Dose Management Condition: Friday Dose/Route: 4.5 mg Instruction: 1.5 x 3 mg tablets Condition: Friday Dose/Route: 3 mg Instruction: 1 x 3 mg tablet Condition: Friday Dose/Route: 3 mg Instruction: 1 x 3 mg tablet Condition: Friday Dose/Route: 3 mg Instruction: 1 x 3 mg tablet Condition: Dose/Route: 3 mg Instruction: 1 x 3 mg tablet Condition: Friday Dose/Route: 3 mg Instruction: 1 x 3 mg tablet Condition: Friday Dose/Route: 4.5 mg Instruction: 1.5 x 3 mg tablets Protocol Text: Adjustment Start Date: Friday01/15/23 INR Value: 2.9 INR Date: 01/15/23 Recheck Date: 01/29/23 Rx Instructions: 3 mg PO 1.5 tablets on , , Fri and 1 tablet daily the rest of the week, or as directed; Primary Care Provider: Ramsey Chairez Referrals: Ramsey Chairez MD [Primary Care Provider] - Disposition Disposition: Home, Self Care
--- NOTE | 2023-02-05 14:37 | CT_ITS ---
STUDY: CT CHEST WITHOUT CONTRAST REASON FOR EXAM: Male, 62 years old. Pleural effusion. Left-sided rib pain following a fall. RADIATION DOSAGE (If Supplied By Facility): CTDIvol = ( 20.15 ) mGy, DLP = ( 902.20 ) mGycm TECHNIQUE: Transaxial imaging was performed without the administration of intravenous contrast material. Multiplanar coronal and sagittal images were reformatted. Individualized dose optimization techniques were used for this CT. COMPARISON: Comparison is made with prior study dated October 17, 2022. FINDINGS: CHEST Patchy infiltrate is seen in the peripheral aspect of the left lower lobe with a minimal left pleural effusion and calcified pleural plaques bilaterally. There is no demonstrated pleural abnormality. Normal heart and pericardium. A dual-chamber pacemaker is seen. Normal mediastinum. Normal hilar regions. Normal unenhanced pulmonary arteries. Normal aorta arch and descending thoracic aorta. There are multi-level degenerative changes of the thoracic spine. No rib fractures seen. There is no demonstrated abnormality of the visualized upper abdomen. CT/Chest without Contrast IMPRESSION: Patchy infiltrate in the peripheral aspect of the left lower lobe with a tiny left pleural effusion. Calcified pleural plaques bilaterally. Electronically Signed: Mitesh Leiva MD at 15:41 EDT ,
[2023-02-05 15:05] VITALS: BMI 42.1
[2023-02-05 15:18] LABS: Absolute Lymphocyte Count 1.76 X10^3/uL (0.83-4.51); Absolute Neutrophil Count 5.5 X10^3/uL (2.0-7.7); Basophil# 0.04 X10^3/uL; Basophil% 0.5 % (0-1); Eosinophil# 0.25 X10^3/uL; Hematocrit 42.8 % (40-54); Hemoglobin 13.9 g/dL (13.0-16.5); Lymphocyte # 1.76 X10^3/ul (0.83-4.51); Mean Corp Hgb Conc 32.5 g/dL (32-36); Mean Corpuscular Hgb 29.6 pg (27.0-32.0); Mean Corpuscular Volume 91.3 fL (80-94); Mean Platelet Vol. 10.9 fl (6.2-12.0); Monocyte# 0.81 X10^3/uL; Monocyte% 9.7 % (0-10); NRBC Flagged by Analyzer 0 % (0-5); Neutrophil # 5.48 X10^3/uL (2.7-7.7); Neutrophil % 65.4 % (47-70); Platelet Count 147 K/mm3 (150-450); RBC Distribution Width CV 13.2 % (11.6-14.6); RBC Distribution Width SD 44.3 fl (35.1-43.9); Red Blood Count 4.69 M/mm3 (4.6-6.2); White Blood Count 8.4 K/mm3 (4.4-11.0)
[2023-02-05 15:30] LABS: Anion Gap 2 (5-15); BUN 20 mg/dL (7-18); BUN/Creat Ratio 17.5 RATIO (10-20); Calcium,Total 8.9 mg/dL (8.5-10.1); Chloride 109 mmol/L (98-107); Creatinine, Serum 1.14 mg/dL (0.70-1.30); EST Glomerular Filtration Rate 69 mL/min (>60); Est Glom Filt Rate - Afr Amer 83 mL/min (>60); Estimated Creatinine Clearance 73.74 ml/min; Glucose 118 mg/dL (74-106); Potassium 4.1 mmol/L (3.5-5.1); Sodium Level 140 mmol/L (136-145)
[2023-02-05 15:31] LABS: Prothrombin Time (Protime)PT. 22.9 SECONDS (11.7-14.9)
[2023-02-05] MEDS: HYDROcodone Bitartrate/Apap 5/325 Tablet PO (17:08)
[2023-02-05] MEDS: Doxycycline 100 MG CAPSULE PO (17:08)
== END 2023-02-05 17:38 | disposition home or self-care (01) ==
PROVIDERS: Emergency Provider Emergency Medicine; PCP Family Medicine; Visit Provider Emergency Medicine
DX: S22.42XA Multiple fractures of ribs, left side, initial encounter for closed fracture (principal); I50.22 Chronic systolic (congestive) heart failure; I48.20 Chronic atrial fibrillation, unspecified; E11.9 Type 2 diabetes mellitus without complications; Z79.4 Long term (current) use of insulin; I25.10 Atherosclerotic heart disease of native coronary artery without angina pectoris; S50.01XA Contusion of right elbow, initial encounter; E78.2 Mixed hyperlipidemia; Z79.01 Long term (current) use of anticoagulants; Z79.899 Other long term (current) drug therapy; Z79.85 Long-term (current) use of injectable non-insulin antidiabetic drugs; Z79.84 Long term (current) use of oral hypoglycemic drugs; Z95.810 Presence of automatic (implantable) cardiac defibrillator; S50.02XA Contusion of left elbow, initial encounter; J90 Pleural effusion, not elsewhere classified; J18.9 Pneumonia, unspecified organism; W01.10XA Fall on same level from slipping, tripping and stumbling with subsequent striking against unspecified object, initial encounter; Y99.0 Civilian activity done for income or pay; Y92.69 Other specified industrial and construction area as the place of occurrence of the external cause
CPT/HCPCS: 71250; 80048; 85025; 85610; 99284; A4216

== ENCOUNTER → 2023-02-12 | Outpatient (CLI) | payer MEDICAID, SELFPAY ==
[2023-02-12 09:48] LABS: Absolute Lymphocyte Count 1.78 X10^3/uL (0.83-4.51); Absolute Neutrophil Count 4.2 X10^3/uL (2.0-7.7); Basophil# 0.04 X10^3/uL; Basophil% 0.6 % (0-1); Eosinophil# 0.41 X10^3/uL; Eosinophils% 5.9 % (0-5); Hematocrit 43.4 % (40-54); Hemoglobin 14.4 g/dL (13.0-16.5); Lymphocyte # 1.78 X10^3/ul (0.83-4.51); Lymphocyte % 25.5 % (19-41); Mean Corp Hgb Conc 33.2 g/dL (32-36); Mean Corpuscular Hgb 29.8 pg (27.0-32.0); Mean Corpuscular Volume 89.7 fL (80-94); Monocyte# 0.48 X10^3/uL; Monocyte% 6.9 % (0-10); NRBC Flagged by Analyzer 0 % (0-5); Neutrophil # 4.24 X10^3/uL (2.7-7.7); Neutrophil % 60.7 % (47-70); Platelet Count 180 K/mm3 (150-450); RBC Distribution Width CV 13.1 % (11.6-14.6); RBC Distribution Width SD 42.6 fl (35.1-43.9); Red Blood Count 4.84 M/mm3 (4.6-6.2)
[2023-02-12 10:19] LABS: Anion Gap 4 (5-15); BUN 18 mg/dL (7-18); BUN/Creat Ratio 14.8 RATIO (10-20); Calcium,Total 9.2 mg/dL (8.5-10.1); Chloride 108 mmol/L (98-107); Creatinine, Serum 1.22 mg/dL (0.70-1.30); EST Glomerular Filtration Rate 64 mL/min (>60); Est Glom Filt Rate - Afr Amer 77 mL/min (>60); Glucose 213 mg/dL (74-106); Magnesium 2.2 mg/dL (1.6-2.6); Potassium 4.3 mmol/L (3.5-5.1); Sodium Level 139 mmol/L (136-145); Thyroid Stim Hormone (TSH) 2.55 uIU/mL (0.358-3.74)
== END | disposition home or self-care (01) ==
LOC: LAB 09:12
PROVIDERS: PCP Family Medicine; Referring Provider Nurse Practitioner Gerontology; Visit Provider Nurse Practitioner Gerontology
DX: R06.02 Shortness of breath (principal)
CPT/HCPCS: 36415; 80048; 83735; 83880; 84443; 85025

== ENCOUNTER → 2023-02-13 | Outpatient (CLI) | payer MEDICAID, OTHER, SELFPAY ==
--- NOTE | 2023-02-13 14:10 | ECHOCS_ITS ---
Reason For Study: SOB Procedure This was a 2D Doppler, Color Flow transthoracic echocardiogram. The study was technically limited. The study was technically difficult. Due to body habitus. Exam performed supine due to 3 left rib fractures. PT unable to lie on left side for exam. Contrast injection was performed. Exam performed in department. Left Ventricle Normal LV size. The left ventricular ejection fraction is 40 %. Difficult to ascertain wall motion abnormalities due to body habitus. Right Ventricle Normal RV size. Normal systolic function. Great Vessels The aortic root is not well visualized. Pericardium/Pleural No pericardial effusion. Medication 22 gauge I.V. with prn adaptor inserted into left arm. Diluted definity 6.0ml given slow IV push to enhance endocardial definition. MMode/2D Measurements & Calculations LVIDd: 5.5 cm IVSd: 1.1 cm Ao root diam: 3.4 cm LVIDs: 4.0 cm LVPWd: 1.1 cm FS: 27.5 % LAV(MOD-bp): 104.7 ml SV(MOD-sp4): 41.2 ml LVAd ap4: 27.7 cm2 LAV(MOD-bp) Indexed: 40.9 ml/m2 LVLd ap4: 7.9 cm LAV(MOD-sp2): 105.7 ml EDV(MOD-sp4): 84.1 ml LAV(MOD-sp4): 97.3 ml EDV(sp4-el): 82.5 ml LVAs ap4: 18.4 cm2 LVLs ap4: 6.6 cm ESV(MOD-sp4): 42.8 ml ESV(sp4-el): 43.3 ml EF(MOD-sp4): 49.1 % EF(sp4-el): 47.5 % SV(sp4-el): 39.2 ml LA dimension(2D): 5.4 cm Time Measurements MV dec time: 0.17 sec Doppler Measurements & Calculations MV E max kvng: 92.0 cm/sec Lat Peak E' Kvng: 17.2 cm/sec Med Peak E' Kvng: 17.4 cm/sec MV A max kvng: 23.6 cm/sec E/E' lat: 5.4 E/E' med: 5.3 MV E/A: 3.9 Ao V2 max: 99.1 cm/sec LV V1 max: 66.6 cm/sec PA V2 max: 74.3 cm/sec Ao max P.9 mmHg LV V1 max P.8 mmHg PA V2 mean: 52.9 cm/sec Ao V2 mean: 66.2 cm/sec LV V1 mean P.0 mmHg Ao mean P.1 mmHg LV V1 mean: 47.9 cm/sec Ao V2 VTI: 22.1 cm LV V1 VTI: 15.4 cm AV (velocity ratio): 0.70 TR max kvng: 211.2 cm/sec TR max P.8 mmHg ECHO/Echo Complete W/ Contrast Interpretation Summary The left ventricular ejection fraction is 40 %. Difficult to ascertain wall motion abnormalities due to body habitus. The study was technically difficult. Contrast injection was performed. Ordering Physician: Antonio Leon Referring Physician: Ramsey Chairez Performed By: Milagros Ivy, BON, RVT
== END | disposition home or self-care (01) ==
LOC: CVS 14:07
PROVIDERS: PCP Family Medicine; Referring Provider Internal Medicine Cardiovascular Disease; Visit Provider Internal Medicine Cardiovascular Disease
DX: R06.02 Shortness of breath (principal); I42.8 Other cardiomyopathies; I50.22 Chronic systolic (congestive) heart failure; I48.11 Longstanding persistent atrial fibrillation; M79.89 Other specified soft tissue disorders
CPT/HCPCS: 93306; Q9957; A4216; C8929

== ENCOUNTER 2023-03-13 14:32 | Emergency (ER) | payer MEDICAID, SELFPAY ==
[2023-03-13 14:33] VITALS: BP 136/73; PULSE 60; RESP 18; TEMP 36.4; O2SAT 100
--- NOTE | 2023-03-13 14:59 | EX.ED.DYSGE1 ---
HPI History of Present Illness Chief Complaint: Diarrhea [facility] Medical History (Updated 03/13/23 @ 19:[address] 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 Longstanding persistent atrial fibrillation Mixed hyperlipidemia Morbid obesity Multiple fractures of ribs, left side, initial encounter for closed fracture Non-ischemic cardiomyopathy Non-sustained ventricular tachycardia Nonobstructive atherosclerosis of coronary artery Obstructive sleep apnea Orthostatic hypotension Paroxysmal atrial fibrillation Pleural effusion, left Home Medications ropinirole 0.25 mg tablet See Rx Instructions PO QHS 09/10/17 [History Last Taken Unknown] dulaglutide 0.75 mg/0.5 mL subcutaneous pen injector (Trulicity) 0.75 mg subcut QWEEK 09/16/17 [History Last Taken Unknown] insulin lispro 100 unit/mL subcutaneous cartridge 18 unit subcut TID 09/16/17 [History Last Taken Unknown] metformin 500 mg tablet,extended release 24 hr 500 mg PO QDAY 09/16/17 [History Last Taken 09/25/22] sertraline 100 mg tablet 100 mg PO QDAY 09/16/17 [History Last Taken Unknown] apremilast 30 mg tablet (Otezla) 30 mg PO BID 06/22/18 [History Last Taken Unknown] gabapentin 300 mg capsule 300 mg PO DAILY 04/27/21 [History Last Taken Unknown] insulin glargine 100 unit/mL (3 mL) subcutaneous pen 55 unit subcut DAILY 08/03/21 [History Last Taken Unknown] lovastatin 40 mg tablet 40 mg PO DAILY #90 tabs 07/30/22 [Rx Last Taken Unknown] warfarin 3 mg tablet 3 mg PO .COMPLEX #100 tabs 11/11/22 [Rx Last Taken Unknown] carvedilol 6.25 mg tablet 6.25 mg PO BID 02/05/23 [History Last Taken Unknown] doxycycline monohydrate 100 mg capsule 100 mg PO BID #20 CAPSULES 02/05/23 [Rx Last Taken Unknown] hydrocodone-acetaminophen 5-325mg 5mg-325mg 1 tab PO Q6H PRN PRN Pain 3 days #10 TABLETS 02/05/23 [Rx Last Taken Unknown] cyclobenzaprine 10 mg tablet 10 mg PO HS PRN muscle spasm #20 tabs 02/12/23 [Rx Last Taken Unknown] furosemide 20 mg tablet (Lasix) 20 mg PO DAILY 02/12/23 [History Last Taken Unknown] lisinopril 5 mg tablet 5 mg PO DAILY #30 tabs 02/17/23 [Rx Last Taken Unknown] Allergy/AdvReac Type Severity Reaction Status Date / Time Penicillins Allergy Unknown Verified 03/13/23 14:34 Sulfa (Sulfonamide Allergy Unknown Verified 03/13/23 14:34 Antibiotics) Family History Father , in his late 60's from an [place] CAD (coronary artery disease) Myocardial infarction Sudden cardiac Mother , Age 80, hx of CAD CAD (coronary artery disease) Brother CAD (coronary artery disease) Atrial fibrillation H/O cardiac radiofrequency ablation Cardiac pacemaker Brother unknown health history Brother CAD (coronary artery disease) Atrial fibrillation Other Family history of CVA Family history of hypertension Surgical History History of cataract surgery History of radiofrequency ablation (RFA) procedure for cardiac arrhythmia (01/06/15) History of right and left heart catheterization (09/23/14) Hx of atrioventricular node ablation (01/06/15) Presence of biventricular implantable cardioverter-defibrillator (ICD) (01/06/15) Social History Smoking Status: Never smoker EXAM Physical Exam Const Vital Signs: 03/13/23 14:33 03/13/23 19:55 Temperature 97.5 F L Temperature Source Temporal Pulse Rate 60 78 Respiratory Rate 18 18 Blood Pressure 136/73 H Blood Pressure Mean 94 Pulse Ox 100 100 Oxygen Delivery Method Room Air Room Air MDM MDM MDM Narrative Medical decision making narrative: HISTORY OF PRESENT ILLNESS: 63-year-old male here for diarrhea for last 6 days. Notes no recent travel. No recent antibiotics. Denies any blood in the stool. Denies abdominal pain. Does note some lower extremity edema and chronic shortness of breath. No CP. REVIEW OF SYSTEMS: Pertinent positives: Diarrhea, chronic shortness of breath Pertinent negatives: Chest type pain, melena hematochezia PHYSICAL EXAM: Nursing triage notes reviewed, Vital signs reviewed Constitutional: please see mdm HENT: MMM Eyes: Pupils equal round and reactive to light, Extraocular muscles intact Neck: No stridor, no JVD, full neck ROM Lungs: Clear to auscultation, No wheezing or rales. No increased work of breathing, no conversational dyspnea, no accessory muscle use, no nasal flaring. No respiratory distress noted Heart: Regular rate and rhythm, No murmurs, No rubs and No gallops, 2+ distal pulses (radial, femoral, posterior tibial) in all extremities Abdomen: Soft, there is no tenderness, rigidity, rebound or guarding, no obvious peritoneal signs, no palpable pulsatile abdominal masses, no auscultated abdominal bruit : No CVAT Extremities: Bilateral lower extremity edema Neuro: No focal neurological deficits, cranial nerves II through XII intact, 5/5 strength in all extremities. Intact sensation to light touch in all extremities, 2+ reflexes bilateral patella tendons. Normal gait. No ataxia. Skin: No rash or lesions noted MEDICAL DECISION MAKING: Chief Complaint: Diarrhea External records reviewed: Echocardiogram from 02/14/2023 shows ejection fraction 40% Factors affecting care: Orthostatic hypotension, cardiomyopathy, CHF, hyperlipidemia, type diabetes, on warfarin Social determinants of health: none History obtained from others: the patient's Consults: none ALL IMAGES (IF OBTAINED) HAVE BEEN PERSONALLY REVIEWED AND INTERPRETED BY MYSELF. EKG with ventricular paced rhythm, normal axis, normal intervals, no STEMI MDM Narrative: Patient was hemodynamically stable, afebrile, nontoxic-appearing. Abdominal exam was benign. Heart and lung exam was benign. I considered the following differential diagnosis: CHF, arrhythmia, anemia, pancreatitis, dehydration, electrolyte normalities, acute kidney injury, invasive diarrhea I considered obtaining a CT scan of patient's abdomen pelvis rule out perforation or obstruction however the patient had a benign abdominal exam and as such is a low risk of acute surgical pathology the abdomen. No indication for advanced imaging the abdomen pelvis noted at this time did obtain a broad lab and imaging work-up To rule out signs of systemic inflammation, signs of dehydration, acute kidney injury, electrolyte abnormality, invasive diarrhea. Labs with no significant abnormalities. Was unable to obtain a stool sample here in the emergency department. Unclear the patient suffering for invasive bacterial diarrhea. Instructed the patient to continue taking plenty of oral fluids to balance with GI losses. Strict return precautions were discussed. The patient and/or family, caregivers express understanding. The patient and/or family, caregivers agrees with the plan. Shared decision making: I will have a discussion with the patient and or visitors regarding risk/benefits of further testing or admission. They will be made aware of of the risk/benefits inherent in this decision they will be given the opportunity to voice understanding. Total critical care time today provided was at least 0 minutes. This excludes separately billable procedures. Critical care time (if documented) is secondary to the patient having high probability of clinically significant/life threatening deterioration in the patient's condition which required my urgent intervention. Impression: Diarrhea Dyspnea History of nonischemic cardiomyopathy Presence of an ICD Dispo: Discharge Lab Data Attestation: I reviewed the patient's lab results. Lab results narrative: CBC with leukocytosis suggestive of systemic inflammation, no significant anemia, no thrombocytopenia BMP without evidence of significant electrolyte abnormalities (noted mild hypokalemia), no anion gap, no acute kidney injury. LFTs show no evidence of hepatobiliary pathology. Troponin is negative, no evidence of myocardial ischemia BNP within normal limits making heart failure less likely Labs: Laboratory Results - last 24 hr 03/13/23 15:18 WBC 11.2 H RBC 4.58 L Hgb 13.3 Hct 41.9 MCV 91.5 MCH 29.0 MCHC 31.7 L RDW Std Deviation 42.7 RDW Coeff of [place] 12.8 Plt Count 196 MPV 11.0 Immature Gran % (Auto) 0.500 Neut % (Auto) 76.4 H Lymph % (Auto) 11.5 L [place] % (Auto) 8.6 Eos % (Auto) 2.6 Baso % (Auto) 0.4 Absolute Neuts (auto) 8.6 H Absolute Lymphs (auto) 1.29 Nucleated RBC % 0 Sodium 135 L Potassium 4.3 Chloride 107 Carbon Dioxide 23.0 Anion Gap 5 BUN 19 H Creatinine 1.24 Est GFR (MDRD) Af Amer 76 Est GFR (MDRD) Non-Af 63 BUN/Creatinine Ratio 15.3 Glucose 202 H Calcium 8.5 Total Bilirubin 0.90 AST 24 ALT 19 Alkaline Phosphatase 79 Troponin I High Sens 10 B-Natriuretic Peptide 72.5 Total Protein 6.6 Albumin 2.7 L Globulin 3.9 Albumin/Globulin Ratio 0.7 L Radiography Diagnostic Testing: Clinical Impression(s) from Imaging Studies Chest X-Ray 03/13/23 15:38 IMPRESSION: Questionable acute on chronic left posterior/posterolateral rib fractures. Recommend chest CT for further evaluation. Chronic lung changes, mostly within the lung bases, unchanged since prior chest radiograph on 10/17/2022. No definite acute lung findings. Electronically Signed: Ciro Miles MD at 18:34 EDT , Chest x-ray was read interpreted myself shows no evidence of CHF exacerbation, pneumonia Discharge Plan Triage Chief Complaint: Diarrhea ED Provider: Song Monk Dx/Rx/DC Orders Clinical Impression: Diarrhea Instructions: ED Diarrhea, Unknown Cause Prescriptions: No Action ropinirole 0.25 mg tablet See Rx Instructions PO QHS Patient Comments: 0.25 MG, 1-2 Tablets PO QHS Rx Instructions: 0.25 MG, 1-2 Tablets PO QHS metformin 500 mg tablet extended release 24 hr 500 mg PO QDAY sertraline 100 mg tablet 100 mg PO QDAY dulaglutide [Trulicity] 0.75 mg/0.5 mL pen injector 0.75 mg SC QWEEK gabapentin 300 mg capsule 300 mg PO DAILY carvedilol 6.25 mg tablet 6.25 mg PO BID Rx Instructions: must administer with a meal/food cyclobenzaprine 10 mg tablet 10 mg PO HS PRN (Reason: muscle spasm) Qty: 20 0RF Rx Instructions: AFTER work hours only furosemide [Lasix] 20 mg tablet 20 mg PO DAILY lisinopril 5 mg tablet 5 mg PO DAILY Qty: 30 11RF insulin lispro 100 UNIT/ML cartridge 18 unit SC TID Patient Comments: WITH MEALS insulin glargine 100 unit/mL (3 mL) insulin pen 55 unit SC DAILY hydrocodone-acetaminophen [hydrocodone-acetaminophen] 5-325 mg tablet 1 tab PO Q6H PRN PRN (Reason: Pain) 3 Days Qty: 10 0RF doxycycline monohydrate 100 mg capsule 100 mg PO BID Qty: 20 0RF Otezla 30 mg tablet 30 mg PO BID lovastatin 40 mg tablet 40 mg PO DAILY Qty: 90 3RF warfarin 3 mg tablet 3 mg PO .COMPLEX Qty: 100 4RF Protocol: Dose Management Condition: Friday Dose/Route: 4.5 mg Instruction: 1.5 x 3 mg tablets Condition: Friday Dose/Route: 3 mg Instruction: 1 x 3 mg tablet Condition: Friday Dose/Route: 3 mg Instruction: 1 x 3 mg tablet Condition: Friday Dose/Route: 3 mg Instruction: 1 x 3 mg tablet Condition: Dose/Route: 3 mg Instruction: 1 x 3 mg tablet Condition: Friday Dose/Route: 0 mg Instruction: 0 tablets Condition: Friday Dose/Route: 4.5 mg Instruction: 1.5 x 3 mg tablets Protocol Text: Adjustment Start Date: Friday02/21/23 INR Value: 3.6 INR Date: 02/21/23 Recheck Date: 03/07/23 Rx Instructions: 3 mg PO 1.5 tablets on , , Fri and 1 tablet daily the rest of the week, or as directed; Primary Care Provider: Ramsey Chairez Referrals: Ramsey Chairez MD [Primary Care Provider] - Activity Restrictions/Additional Instructions: Thank you for trusting us with your care today! Please take Tylenol (2 pills, 650 mg), ibuprofen (2 pills, 400 mg) every 6 hours as needed for pain and fever control. Please drink plenty of fluids. Every time you have loose stools or diarrhea please drink approximate 8 ounces of electrolyte-containing solution. I recommend body armor, Pedialyte or Gatorade. Please return to the emergency department if your symptoms change or worsen. Please follow with your primary care physician for further outpatient evaluation and management. Disposition Disposition: Home, Self Care Discharge Date/Time: 03/13/23 19:56
--- NOTE | 2023-03-13 15:03 | EKG12_ITS ---
Test Reason : GENERAL Blood Pressure : / mmHG Vent. Rate : 060 BPM Atrial Rate : 060 BPM P-R Int : 000 ms QRS Dur : 072 ms QT Int : 374 ms P-R-T Axes : 000 244 -31 degrees QTc Int : 374 ms Ventricular-paced rhythm Biventricular pacemaker detected Abnormal ECG Confirmed by ANA RAMIREZ ([id number]), order editor TAMARA JENSEN ([id number]) on 03/27/2023 11:19:21 AM Referred By: Confirmed By:ANA RAMIREZ
[2023-03-13] MEDS: 0.9% Normal Saline 1,000 ML 500 ML IV (15:24)
[2023-03-13 15:35] LABS: Absolute Lymphocyte Count 1.29 X10^3/uL (0.83-4.51); Absolute Neutrophil Count 8.6 X10^3/uL (2.0-7.7); Basophil# 0.04 X10^3/uL; Basophil% 0.4 % (0-1); Eosinophil# 0.29 X10^3/uL; Eosinophils% 2.6 % (0-5); Hematocrit 41.9 % (40-54); Hemoglobin 13.3 g/dL (13.0-16.5); Lymphocyte # 1.29 X10^3/ul (0.83-4.51); Lymphocyte % 11.5 % (19-41); Mean Corp Hgb Conc 31.7 g/dL (32-36); Mean Corpuscular Volume 91.5 fL (80-94); Monocyte# 0.97 X10^3/uL; Monocyte% 8.6 % (0-10); NRBC Flagged by Analyzer 0 % (0-5); Neutrophil # 8.57 X10^3/uL (2.7-7.7); Neutrophil % 76.4 % (47-70); Platelet Count 196 K/mm3 (150-450); RBC Distribution Width CV 12.8 % (11.6-14.6); RBC Distribution Width SD 42.7 fl (35.1-43.9); Red Blood Count 4.58 M/mm3 (4.6-6.2); White Blood Count 11.2 K/mm3 (4.4-11.0)
--- NOTE | 2023-03-13 15:38 | RAD_ITS ---
INDICATION: pt stated diarrhea, hx of chemo bone marrow treatment and defib in chest EXAMINATION/TECHNIQUE: X-RAY - XR Chest 1 View COMPARISON: 10/17/2022. FINDINGS: Chronic lung changes, mostly within the lung bases, unchanged since prior chest radiograph on 10/17/2022 Tortuous and calcified thoracic aorta. The heart is mildly enlarged. Calcified mediastinal nodes are again seen. Right-sided cardiac device. No pleural effusion or pneumothorax. Degenerative changes of the thoracic spine. Questionable acute on chronic left posterior/posterolateral rib fractures. RAD/Chest 1 View (Portable) IMPRESSION: Questionable acute on chronic left posterior/posterolateral rib fractures. Recommend chest CT for further evaluation. Chronic lung changes, mostly within the lung bases, unchanged since prior chest radiograph on 10/17/2022. No definite acute lung findings. Electronically Signed: Ciro Miles MD at 18:34 EDT ,
[2023-03-13 16:05] LABS: ALB/GLOB Ratio 0.7 RATIO (0.9-2.4); AST(SGOT) 24 U/L (15-37); Alanine Aminotransfer ALT/SGPT 19 U/L (16-61); Albumin, Serum 2.7 g/dL (3.2-5.0); Alkaline Phosphatase 79 U/L (45-117); Anion Gap 5 (5-15); BUN 19 mg/dL (7-18); BUN/Creat Ratio 15.3 RATIO (10-20); Calcium,Total 8.5 mg/dL (8.5-10.1); Chloride 107 mmol/L (98-107); Creatinine, Serum 1.24 mg/dL (0.70-1.30); EST Glomerular Filtration Rate 63 mL/min (>60); Est Glom Filt Rate - Afr Amer 76 mL/min (>60); Globulin 3.9 g/dL (2.2-4.2); Glucose 202 mg/dL (74-106); Potassium 4.3 mmol/L (3.5-5.1); Protein, Total 6.6 g/dL (6.4-8.2); Sodium Level 135 mmol/L (136-145)
[2023-03-13 16:32] LABS: Troponin-I HS 10 pg/mL (3.0-78.0)
[2023-03-13 16:40] LABS: BNP,B-Type NATRIURETIC PEPTIDE 72.5 pg/mL (0-100)
[2023-03-13 19:55] VITALS: PULSE 78; RESP 18; O2SAT 100
--- NOTE | 2023-03-13 23:12 | ED.RN ---
Positive c.diff results received from lab. Dr Olmedo to call in antibiotics to patient's preferred pharmacy. Patient called and notified of result. all questions answered.
== END 2023-03-13 19:56 | disposition home or self-care (01) ==
PROVIDERS: Emergency Provider Emergency Medicine; PCP Family Medicine; Visit Provider Emergency Medicine
DX: R19.7 Diarrhea, unspecified (principal); I50.22 Chronic systolic (congestive) heart failure; I48.0 Paroxysmal atrial fibrillation; E11.9 Type 2 diabetes mellitus without complications; Z79.4 Long term (current) use of insulin; I25.10 Atherosclerotic heart disease of native coronary artery without angina pectoris; E78.2 Mixed hyperlipidemia; Z79.84 Long term (current) use of oral hypoglycemic drugs; Z79.01 Long term (current) use of anticoagulants; Z95.810 Presence of automatic (implantable) cardiac defibrillator
CPT/HCPCS: 71045; 80053; 83880; 84484; 85025; 87493; 87506; 93005; 96360; 96361; 99283; J7040; A4216

== ENCOUNTER → 2023-06-03 | Outpatient (CLI) | payer MEDICAID, SELFPAY ==
--- NOTE | 2023-06-03 17:33 | STRESSREP ---
Stress Test Report Pharmacologic myocardial perfusion stress test. 63-year-old man with a history of chest pain Resting EKG demonstrates sinus rhythm with a rate of 60 bpm. Resting blood pressure is 152/100 mmHg. 0.4 mg of regadenoson was infused per usual protocol followed by rapid intravenous saline flush injection. Continuous EKG monitoring was performed. The maximum heart rate was 64 bpm which was 40% of max impacted heart rate the maximum workload was 1 metabolic equivalent. At rest there were no ST or T wave changes noted to suggest ischemia and at peak infusion nonspecific ST changes were noted which did not meet the criteria for ischemia. No clinical angina is noted. The final blood pressure was 146/90 mmHg. Myocardial perfusion protocol. 14.9 mCi of technetium 99m sestamibi was injected at rest. 0.4 mg of regadenoson was infused per usual protocol. At peak infusion 45 mCi of technetium 99m sestamibi was injected stress images were obtained stress and rest images were reconstructed and compared in the short axis vertical long and horizontal long axis. Gated images were also obtained. Perfusion SPECT analysis: Review of the stress images demonstrate normal uptake of tracer noted in all areas of the myocardium except for the inferolateral and anterolateral region with a perfusion defect present. The resting images similar demonstrated normal uptake of tracer noted in all areas of the myocardium except for the inferolateral and anterolateral region with a perfusion defect present. The above is suggestive of a previous infarct in this region. Gated SPECT analysis: The gated ejection fraction is 66%. Conclusion: Normal pharmacologic myocardial perfusion stress test. Preserved ejection fraction. Previous inferolateral and anterolateral infarct cannot be completely excluded
== END | disposition home or self-care (01) ==
LOC: CVS 06:19
PROVIDERS: PCP Family Medicine; Referring Provider Internal Medicine Cardiovascular Disease; Visit Provider Internal Medicine Cardiovascular Disease
DX: R07.89 Other chest pain (principal); I42.8 Other cardiomyopathies; I48.0 Paroxysmal atrial fibrillation; I47.20 Ventricular tachycardia, unspecified; I48.11 Longstanding persistent atrial fibrillation; R06.02 Shortness of breath; Z95.810 Presence of automatic (implantable) cardiac defibrillator
CPT/HCPCS: 78452; 93017; A9500; A4216; J2785

== ENCOUNTER 2023-09-05 19:14 | Emergency (ER) | payer MEDICAID, SELFPAY ==
[2023-09-05 19:15] VITALS: BP 174/93; PULSE 58; RESP 16; TEMP 36.4; O2SAT 98; BMI 42.0
--- NOTE | 2023-09-05 19:25 | RAD_ITS ---
EXAM: XR LEFT RIBS AND AP CHEST, 3 OR MORE VIEWS CLINICAL INDICATION: INJURY pain. TECHNIQUE: Frontal and oblique views of the left ribs and frontal view of the chest. COMPARISON: Chest radiograph, 03/13/2023 FINDINGS: LUNGS AND PLEURAL SPACES: Left basilar pulmonary opacity may be scarring, atelectasis, or pneumonia. No pneumothorax. No effusion. HEART: No significant abnormality. Cardiac silhouette not enlarged. MEDIASTINUM: Left superior mediastinal granuloma. BONES/JOINTS: Degenerative changes in the spine and shoulders. No discrete evidence of an acute rib fracture. TUBES, LINES AND DEVICES: Right side cardiac pacer/AICD. RAD/Ribs Uni Min 3V w/PA Chest IMPRESSION: 1. No discrete evidence of an acute rib fracture. 2. Left basilar pulmonary opacity may be scarring, atelectasis, or pneumonia. Electronically Signed: Avery Pavon DO at 20:18 EST ,
--- NOTE | 2023-09-05 22:23 | EDS_ITS ---
HPI History of Present Illness Chief Complaint: Chest Other Informant: patient and spouse/S.O. Narrative Narrative: Patient is a 63-year-old male with past medical history of heart failure diabetes and atrial fibrillation on Coumadin. He states that around 11 AM today he was walking into a business when he tripped over a air cord and landed on his left side. He states that he did not strike his head or have any loss of consciousness. He reports he was able to get up and ambulate following the fall. He reports throughout the day he has developed left-sided chest wall pain and has concern for rib fractures as he has had these in the past. He states there has been no hematuria or dysuria. He denies any headache change in vision nausea or vomiting. 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 Longstanding persistent atrial fibrillation Mixed hyperlipidemia Morbid obesity Multiple fractures of ribs, left side, initial encounter for closed fracture Non-ischemic cardiomyopathy Non-sustained ventricular tachycardia Nonobstructive atherosclerosis of coronary artery Obstructive sleep apnea Orthostatic hypotension Paroxysmal atrial fibrillation Pleural effusion, left Home Medications ropinirole 0.25 mg tablet See Rx Instructions PO QHS 09/10/17 [History Last Taken Unknown] dulaglutide 0.75 mg/0.5 mL subcutaneous pen injector (Trulicity) 0.75 mg subcut QWEEK 09/16/17 [History Last Taken Unknown] insulin lispro 100 unit/mL subcutaneous cartridge 18 unit subcut TID 09/16/17 [History Last Taken Unknown] metformin 500 mg tablet,extended release 24 hr 500 mg PO QDAY 09/16/17 [History Last Taken 09/25/22] sertraline 100 mg tablet 100 mg PO QDAY 09/16/17 [History Last Taken Unknown] apremilast 30 mg tablet (Otezla) 30 mg PO BID 06/22/18 [History Last Taken Unknown] insulin glargine 100 unit/mL (3 mL) subcutaneous pen 55 unit subcut DAILY 08/03/21 [History Last Taken Unknown] lovastatin 40 mg tablet 40 mg PO DAILY #90 tabs 07/30/22 [Rx Last Taken Unknown] carvedilol 6.25 mg tablet 6.25 mg PO BID 02/05/23 [History Last Taken Unknown] doxycycline monohydrate 100 mg capsule 100 mg PO BID #20 CAPSULES 02/05/23 [Rx Last Taken Unknown] hydrocodone-acetaminophen 5-325mg 5mg-325mg 1 tab PO Q6H PRN PRN Pain 3 days #10 TABLETS 02/05/23 [Rx Last Taken Unknown] cyclobenzaprine 10 mg tablet 10 mg PO HS PRN muscle spasm #20 tabs 02/12/23 [Rx Last Taken Unknown] furosemide 20 mg tablet (Lasix) 20 mg PO DAILY 02/12/23 [History Last Taken Unknown] lisinopril 5 mg tablet 5 mg PO DAILY #30 tabs 02/17/23 [Rx Last Taken Unknown] vancomycin 125 mg capsule (Vancocin) 125 mg PO Q6H 10 days #40 caps 03/13/23 [Rx Last Taken Unknown] gabapentin 300 mg capsule 300 mg PO DAILY 05/28/23 [History Last Taken Unknown] spironolactone 25 mg tablet 25 mg PO DAILY #30 tabs 06/04/23 [Rx Last Taken Unknown] warfarin 3 mg tablet 3 mg PO .COMPLEX #100 tabs 06/11/23 [Rx Last Taken Unknown] methocarbamol 500 mg tablet 500 mg PO 4X/DAY PRN PRN Muscle pain/spasm #40 tabs 09/05/23 [Rx Last Taken Unknown] oxycodone-acetaminophen 5 mg-325 mg tablet (Percocet) 1 tab PO Q6H PRN pain 5 days #20 tabs 09/05/23 [Rx Last Taken Unknown] Allergy/AdvReac Type Severity Reaction Status Date / Time Penicillins Allergy Unknown Verified 09/05/23 19:17 Sulfa (Sulfonamide Allergy Unknown Verified 09/05/23 19:17 Antibiotics) Family History Father , in his late 60's from an [place] CAD (coronary artery disease) Myocardial infarction Sudden cardiac Mother , Age 80, hx of CAD CAD (coronary artery disease) Brother CAD (coronary artery disease) Atrial fibrillation H/O cardiac radiofrequency ablation Cardiac pacemaker Brother unknown health history Brother CAD (coronary artery disease) Atrial fibrillation Other Family history of CVA Family history of hypertension Surgical History History of cataract surgery History of radiofrequency ablation (RFA) procedure for cardiac arrhythmia (01/06/15) History of right and left heart catheterization (09/23/14) Hx of atrioventricular node ablation (01/06/15) Presence of biventricular implantable cardioverter-defibrillator (ICD) (01/06/15) Social History Smoking Status: Never smoker ROS ROS ED Constitutional Constitutional ED: Denies chills or fever(s) Eyes Eyes: Denies blurry vision or change in vision ENT ENT ED: Denies sore throat Cardiovascular Cardiovascular: Denies chest pain Respiratory/Chest Respiratory/Chest: Denies cough or dyspnea Gastrointestinal Gastrointestinal: Denies abdominal pain, diarrhea, nausea or vomiting Genitourinary Genitourinary ED: Denies dysuria or hematuria Musculoskeletal Musculoskeletal: Reports other Details: Positive left rib pain ; Denies back pain Integumentary Denies Abrasions or rash Neurologic Neurologic: Denies headache(s) or paresthesias Hematologic/Lymphatic Hematologic/Lymphatic: Reports easy bleeding and easy bruising EXAM Physical Exam Const Vital Signs: 09/05/23 19:15 Temperature 97.5 F L Temperature Source Temporal Pulse Rate 58 L Respiratory Rate 16 Blood Pressure 174/93 H Blood Pressure Mean 120 Pulse Ox 98 Oxygen Delivery Method Room Air Positive well nourished, well developed and obese General Appearance ED: well developed Nutritional Appearance: obese HEENT HEENT Narrative: Normocephalic atraumatic No signs of depressed or basilar skull fracture Eyes PERRL and EOMs intact bilaterally Eyes Narrative: No hyphema noted Neck supple Neck Narrative: No bony deformity or step-off of the cervical spine no midline pain on palpation Patient can move his neck in all directions without pain Chest Wall Chest Narrative: There is pain on palpation of the left anterior chest wall rib regions 9-12 without obvious bony deformity or crepitance. There is mild soft tissue swelling and ecchymosis at the site consistent with history of fall/trauma. Resp normal respiratory effort and clear to auscultation bilaterally Cardio regular rate and regular rhythm GI normal to inspection, nondistended, normoactive bowel sounds, non-tender, non- distended and no masses GI Narrative: Abdomen is soft nontender nondistended with normal active bowel sounds. No voluntary guarding or rigidity. No pulsatile mass or fluid wave. No ecchymosis across the abdomen to suggest trauma Auscultation: normoactive bowel sounds Palpation: soft Back/Spine Back/Spine Narrative: No bony deformity or step-off of the thoracic or lumbar spine no midline pain with palpation Extremity Extremity Narrative: Pelvis is stable there is no shortening or external rotation of either lower extremity. There is mild pain with palpation in the right inguinal region. However with passive range of motion there is no increased pain. When patient actively flexes the hip there is pain in this area. Patient is able to move both upper extremities without any difficulty or pain Neuro oriented x3, CN's II-XII intact bilaterally and no sensory deficits noted Sensorium / Orientation: alert Psych mental status grossly normal Skin Skin Narrative: Patient has mild soft tissue swelling ecchymosis to the left chest wall as documented above consistent with history of fall MDM MDM MDM Narrative Medical decision making narrative: Patient arrived to the ER hypertensive but otherwise with stable vitals. He reported mechanical fall and therefore there is no need for cardiac or syncope workup. He denies striking his head or any loss of consciousness but does take Coumadin so we discussed obtaining a head CT to rule out no underlying traumatic brain injury such as epidural or subdural hematoma. However the patient does not have headache change in vision altered mental status or nausea or vomiting and therefore chance of this occurring is low and he does not want to have any type of CT scan obtained. Patient also has pain in the right inguinal region and so there is concern for pubic rami fracture. We discussed order an x-ray to further evaluate this but he is able to ambulate and this is a nonsurgical fracture so as he can tolerate pain a x-ray documenting fracture would not change course of therapy. Therefore he does not want imaging studies obtained. There was concern for potential rib fracture versus pulmonary contusion versus pneumothorax so the x-ray of the chest with ribs was ordered and there is no obvious findings. Radiologist did mention scarring versus pneumonia but the patient does not have a fever he is not coughing he is not in respiratory distr ess and he when he came in after a mechanical fall which indicates this is most likely scarring or chronic in nature. At this time being placed on symptomatic medication and discharged home History & Record Review Discussion w/independent historian: Patient and Significant other Radiography Diagnostic Testing: Clinical Impression(s) from Imaging Studies Ribs w/Chest X-Ray 09/05/23 19:25 IMPRESSION: 1. No discrete evidence of an acute rib fracture. 2. Left basilar pulmonary opacity may be scarring, atelectasis, or pneumonia. Electronically Signed: Avery Pavon, DO at 20:18 EST , 1 view chest x-ray with left ribs as interpreted by the emergency medicine physician reveals no acute rib fracture or pneumothorax or pleural effusion with a pacemaker intact and in place without derangement to the hardware. 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, Chronic systolic heart failure, Pacemaker Instructions: ED Chest Wall Contusion, ED Rib Contusion or Minor Fracture Prescriptions: New oxycodone-acetaminophen [Percocet] 5-325 mg tablet 1 tab PO Q6H PRN (Reason: pain) 5 Days Qty: 20 0RF methocarbamol 500 mg tablet 500 mg PO 4X/DAY PRN PRN (Reason: Muscle pain/spasm) Qty: 40 0RF No Action ropinirole 0.25 mg tablet See Rx Instructions PO QHS Patient Comments: 0.25 MG, 1-2 Tablets PO QHS Rx Instructions: 0.25 MG, 1-2 Tablets PO QHS metformin 500 mg tablet extended release 24 hr 500 mg PO QDAY sertraline 100 mg tablet 100 mg PO QDAY dulaglutide [Trulicity] 0.75 mg/0.5 mL pen injector 0.75 mg SC QWEEK gabapentin 300 mg capsule 300 mg PO DAILY Rx Instructions: 100 mg also carvedilol 6.25 mg tablet 6.25 mg PO BID Rx Instructions: must administer with a meal/food cyclobenzaprine 10 mg tablet 10 mg PO HS PRN (Reason: muscle spasm) Qty: 20 0RF Rx Instructions: AFTER work hours only furosemide [Lasix] 20 mg tablet 20 mg PO DAILY lisinopril 5 mg tablet 5 mg PO DAILY Qty: 30 11RF spironolactone 25 mg tablet 25 mg PO DAILY Qty: 30 11RF insulin lispro 100 UNIT/ML cartridge 18 unit SC TID Patient Comments: WITH MEALS insulin glargine 100 unit/mL (3 mL) insulin pen 55 unit SC DAILY hydrocodone-acetaminophen [hydrocodone-acetaminophen] 5-325 mg tablet 1 tab PO Q6H PRN PRN (Reason: Pain) 3 Days Qty: 10 0RF doxycycline monohydrate 100 mg capsule 100 mg PO BID Qty: 20 0RF vancomycin [Vancocin] 125 mg capsule 125 mg PO Q6H 10 Days Qty: 40 0RF Otezla 30 mg tablet 30 mg PO BID lovastatin 40 mg tablet 40 mg PO DAILY Qty: 90 3RF warfarin 3 mg tablet 3 mg PO .COMPLEX Qty: 100 4RF Protocol: Dose Management Condition: Friday Dose/Route: 1.5 mg Instruction: 0.5 x 3 mg tablets Condition: Friday Dose/Route: 3 mg Instruction: 1 x 3 mg tablet Condition: Friday Dose/Route: 3 mg Instruction: 1 x 3 mg tablet Condition: Friday Dose/Route: 3 mg Instruction: 1 x 3 mg tablet Condition: Dose/Route: 3 mg Instruction: 1 x 3 mg tablet Condition: Friday Dose/Route: 1.5 mg Instruction: 0.5 x 3 mg tablets Condition: Friday Dose/Route: 1.5 mg Instruction: 0.5 x 3 mg tablets Protocol Text: Adjustment Start Date: 08/07/23 INR Value: 3.1 INR Date: 08/05/23 Rx Instructions: 3 mg PO 1.5 tablets on , , Fri and 1 tablet daily the rest of the week, or as directed; Primary Care Provider: Ramsey Chairez Referrals: Ramsey Chairez MD [Primary Care Provider] - Disposition Disposition: Home, Self Care Discharge Date/Time: 09/05/23 22:45
--- OUTSIDE RECORDS SUMMARY | 2023-09-05 22:30 | XMS RPT_ITS | CCD ---
Author Name Unknown Address [address] [place] [address] Organization [facility] Care Team Providers Care Nurse Receptionist Name Role Phone AKHIL Peguero, Willow Chin Unavailable Unavailable AKHIL Peguero, Willow Chin Unavailable Unavailable Rob Smiley MD Primary Care Provider Rob Smiley MD Primary Care Provider Rob Smiley MD Primary Care Provider Rob Smiley MD Primary Care Provider ROB SMILEY Primary Care Unavailable BONITA, SREEKANTH Referring Unavailable LONGBROCKROB Primary Care Unavailable BONITA, SREEKANTH Attending Unavailable LONGBROROB SIMPSON Primary Care Unavailable BONITA, SREEKANTH Referring Unavailable ELDERBROCK, ROB Barton Primary Care Unavailable ELDERBROCK, ROB Barton Primary Care Unavailable BONITA, SREEKANTH Attending Unavailable LONGBROCKROB Referring Unavailable ELDERBROCK, ROB Barton Primary Care Unavailable BONITA, SREEKANTH Referring Unavailable BONITA, SREEKANTH Attending Unavailable LONGBROCKROB Primary Care Unavailable BONITA, SREEKANTH Referring Unavailable ELDERBROCK, ROB Barton Primary Care Unavailable BONITA, SREEKANTH Attending Unavailable ELDERBROCK, ROB Barton Primary Care Unavailable ELDERBROCK, ROB Barton Primary Care Unavailable JOSE ALFREDO LINDQUIST Attending Unavailable JOSE ALFREDO LINDQUIST Referring Unavailable ELDERBROCK, ROB D Primary Care Unavailable BONITA, SREEKANTH Referring Unavailable BONITA, SREEKANTH Attending Unavailable ELDERBROCK, ROB Oralia Primary Care Unavailable ELDERBROCK, ROB Oralia Primary Care Unavailable BONITA, SREEKANTH Referring Unavailable ELDERBROCK, ROB D Primary Care Unavailable ELDERBROCK, ROB D Primary Care Unavailable BONITA, SREEKANTH Attending Unavailable Allergies Allergy Classification Reported Allergen(s) Allergy Type Date of Onset Reaction(s) Facility (2 sources) penicillin Drug Allergy 4 [facility] Work Phone: (2 sources) Sulfonamides (Antibiotic) drug allergy 4 [facility] Work Phone: (20 sources) Penicillin G; Translations: [PENICILLIN G] Drug Allergy 5 Rash [facility] Work Phone: (20 sources) Sulfonamides (Antibiotic); Translations: [SULFA (SULFONAMIDE ANTIBIOTICS)] Propensity to adverse reactions to drug 5 Unknown [facility] Work Phone: Medications Current Medications Medication Drug Class(es) Dates Sig (Normalized) Sig (Original) 0.5 ml dulaglutide 3 mg/ml auto-injector (2 sources) GLP-1 Receptor Agonist Start: 06-18-2021 End: 01-07-2022 dulaglutide (TRULICITY) 1.5 mg/0.5 mL pen injector Indications: Controlled type 2 diabetes mellitus without complication, with long-term current use of insulin (HCC) Inject 1.5 mg subcutaneously one time a week. Inject once per week. Discard Pen After 2 mL 9 06/18/2021 01/07/2022 Discontinued (Course of therapy completed) Completed/Discontinued Medications Medication Drug Class(es) Dates Sig (Normalized) Sig (Original) acetaminophen 325 mg / HYDROcodone bitartrate 5 mg oral tablet (11 sources) Opioid Agonist Start: 02-05-2023 End: 05-13-2023 take 1 tablet by mouth every six hours as needed HYDROcodone-acetami nophen (NORCO) 5-325 mg per tablet Take 1 tablet by mouth every 6 hours as needed for pain. 0 02/05/2023 05/13/2023 Discontinued (Course of therapy completed) Problems Active Problems Problem Classification Problem Date Documented Date Episodic/Chronic Anxiety disorders (20 sources) Mixed anxiety and depressive disorder; Translations: [Anxiety disorder, unspecified] Onset: 12-12-2016 12-12-2016 Chronic Cardiac arrest and ventricular fibrillation (2 sources) Cardiac arrest; Translations: [Cardiac arrest, cause unspecified] Onset: 10-05-2014 10-05-2014 Chronic Cardiac dysrhythmias (20 sources) Paroxysmal atrial fibrillation; Translations: [Atrial fibrillation] Onset: 10-09-2005 11-09-2015 Chronic Chronic kidney disease (20 sources) Chronic kidney disease stage 3; Translations: [Chronic kidney disease (CKD), stage III (moderate)] Onset: 09-23-2017 09-23-2017 Chronic Conduction disorders (4 sources) Presence of automatic (implantable) cardiac defibrillator; Translations: [Presence of automatic (implantable) cardiac defibrillator] Onset: 10-03-2014 11-07-2014 Chronic Congestive heart failure; nonhypertensive (2 sources) Chronic systolic (congestive) heart failure; Translations: [Chronic systolic (congestive) heart failure] Onset: 11-09-2015 11-09-2015 Chronic Coronary atherosclerosis and other heart disease (4 sources) 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; Translations: [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] Onset: 10-03-2014 11-09-2015 Chronic Diabetes mellitus with complications (1 source) Type 2 diabetes mellitus with diabetic polyneuropathy; Translations: [Controlled type 2 diabetes mellitus with diabetic polyneuropathy, with long-term current use of insulin (HCC)] Onset: 06-20-2015 Chronic Diabetes mellitus without complication (20 sources) Type 2 diabetes mellitus; Translations: [Type 2 diabetes mellitus without complication] Onset: 04-30-2005 08-11-2013 Chronic Disorders of lipid metabolism (20 sources) Mixed hyperlipidemia; Translations: [Mixed hyperlipidemia] Onset: 04-30-2005 08-11-2013 Chronic Essential hypertension (3 sources) Essential hypertension; Translations: [Essential (primary) hypertension] Onset: 11-12-2022 Chronic Heart valve disorders (1 source) Abnormal cardiac rate; Translations: [Unspecified abnormalities of heart beat] 02-11-2023 Episodic Hemorrhoids (3 sources) External hemorrhoids; Translations: [Residual hemorrhoidal skin tags] 04-11-2023 Episodic Immunizations and screening for infectious disease (1 source) Needs influenza immunization; Translations: [Encounter for immunization] Episodic Inflammation; infection of eye (except that caused by tuberculosis or sexually transmitteddisease) (1 source) Conjunctivitis; Translations: [Other conjunctivitis] Episodic Intestinal infection (9 sources) Clostridium difficile diarrhea; Translations: [Enterocolitis due to Clostridium difficile, recurrent] Onset: 03-18-2023 04-11-2023 Episodic Melanomas of skin (20 sources) Malignant melanoma; Translations: [Malignant melanoma of skin, unspecified] Onset: 12-27-2011 12-27-2011 Chronic Mood disorders (1 source) Mood disorders; Translations: [Anxiety and depression] Onset: 12-12-2016 Other aftercare (20 sources) Long-term current use of anticoagulant; Translations: [USP (current) use of anticoagulants] 01-23-2012 Episodic Other fractures (1 source) Closed fracture of multiple ribs; Translations: [Multiple fractures of ribs, left side, subsequent encounter for fracture with routine healing] 02-11-2023 Episodic Other hereditary and degenerative nervous system conditions (20 sources) Restless legs; Translations: [Restless legs syndrome] Onset: 12-05-2015 12-05-2015 Chronic Other hereditary and degenerative nervous system conditions (1 source) Restless legs syndrome; Translations: [Restless leg syndrome] Onset: 12-05-2015 Chronic Other inflammatory condition of skin (20 sources) Psoriasis; Translations: [Psoriasis, unspecified] Onset: 10-05-2009 10-05-2009 Chronic Other lower respiratory disease (3 sources) Dyspnea; Translations: [Shortness of breath] Onset: 11-21-2016 11-21-2016 Episodic Other lower respiratory disease (1 source) Cough; Translations: [Acute cough] Episodic Other male genital disorders (20 sources) Male erectile dysfunction, unspecified; Translations: [Impotence of organic origin] Onset: 10-05-2009 10-05-2009 Chronic Other nutritional; endocrine; and metabolic disorders (20 sources) Morbid obesity; Translations: [Morbid (severe) obesity due to excess calories] Onset: 08-11-2013 08-11-2013 Chronic Anika-; endo-; and myocarditis; cardiomyopathy (12 sources) Cardiomyopathy; Translations: [Cardiomyopathy associated with another disorder] Onset: 06-16-2014 06-16-2014 Chronic Residual codes; unclassified (20 sources) Obstructive sleep apnea syndrome; Translations: [Obstructive sleep apnea (adult) (pediatric)] Onset: 08-29-2016 08-29-2016 Chronic Residual codes; unclassified (1 source) Bilateral lower limb edema; Translations: [Localized edema] 02-11-2023 Episodic Unclassified (12 sources) Body mass index (BMI) 45.0-49.9, adult; Translations: [Body mass index (BMI) 40.0-44.9, adult] Onset: 08-18-2013 Resolved: 09-14-2015 03-28-2015 Chronic Unclassified (2 sources) Radiofrequency ablation operation for arrhythmia ; Translations: [Other specified postprocedural states] Onset: 11-09-2015 11-09-2015 Unclassified (2 sources) Anticoagulant drug monitoring; Translations: [USP (current) use of anticoagulants] Onset: 08-11-2013 08-11-2013 Past or Other Problems Problem Classification Problem Date Documented Date Episodic/Chronic Allergic reactions (20 sources) Solar degeneration; Translations: [Other skin changes due to chronic exposure to nonionizing radiation] Onset: 11-28-2011 11-28-2011 Episodic Conditions associated with dizziness or vertigo (2 sources) Lightheadedness; Translations: [Dizziness and giddiness] Onset: 11-12-2022 Episodic Malaise and fatigue (4 sources) Fatigue; Translations: [Other fatigue] Onset: 06-16-2014 06-16-2014 Episodic Neoplasms of unspecified nature or uncertain behavior (20 sources) Neoplasm of uncertain behavior of skin; Translations: [Neoplasm of uncertain behavior of skin] Onset: 11-28-2011 11-28-2011 Episodic Other aftercare (2 sources) watermaster (current) use of insulin; Translations: [Controlled type 2 diabetes mellitus with diabetic polyneuropathy, with long-term current use of insulin (HCC)] Onset: 06-20-2015 Episodic Other and unspecified benign neoplasm (20 sources) Dysplastic nevus of skin; Translations: [Melanocytic nevi, unspecified] Onset: 11-28-2011 11-28-2011 Episodic Other circulatory disease (2 sources) Orthostatic hypotension; Translations: [Orthostatic hypotension] Onset: 03-28-2015 03-28-2015 Episodic Other diseases of veins and lymphatics (20 sources) Peripheral venous insufficiency; Translations: [Venous insufficiency (chronic) (peripheral)] Onset: 12-12-2016 12-12-2016 Episodic Other screening for suspected conditions (not mental disorders or infectious disease) (5 sources) Patient encounter status; Translations: [Encounter for screening for malignant neoplasm of prostate] Onset: 11-12-2022 Episodic Other skin disorders (20 sources) Solar lentigo; Translations: [Other melanin hyperpigmentation] Onset: 11-28-2011 11-28-2011 Episodic Other skin disorders (20 sources) Actinic keratosis; Translations: [Actinic keratosis] Onset: 11-28-2011 11-28-2011 Episodic Pneumonia (except that caused by tuberculosis or sexually transmitted disease) (4 sources) Community acquired pneumonia; Translations: [Pneumonia, unspecified organism] Onset: 11-11-2022 Episodic Spondylosis; intervertebral disc disorders; other back problems (20 sources) Sciatica; Translations: [Sciatica, unspecified side] Onset: 04-04-2007 04-04-2007 Episodic Unclassified (6 sources) Edema of lower extremity; Translations: [FH: Hypertension] Onset: 11-21-2016 11-21-2016 Episodic Results Test Name Value Interpretation Reference Range Facil ity Vital Signs Date Time Vital Sign Value Performing Clinician Facility 05-13-2023 13:13-0400 Body weight 135.99 kg Sreekanth Richardson APRN.CNP Work Phone: [facility] 05-13-2023 13:13-0400 Diastolic blood pressure 85 mm[Hg] Sreekanth Richardson APRN.SUPERVISORY INVESTIGATIVE SPECIALIST Work Phone: [facility] 05-13-2023 13:13-0400 Heart rate 60 /min Sreekanth Richardson APRN.SUPERVISORY INVESTIGATIVE SPECIALIST Work Phone: [facility] 05-13-2023 13:13-0400 Respiratory rate 18 /min Sreekanth Richardson APRN.SUPERVISORY INVESTIGATIVE SPECIALIST Work Phone: [facility] 05-13-2023 13:13-0400 SaO2% (BldA) [Mass fraction] 99 % Sreekanth Richardson APRN.SUPERVISORY INVESTIGATIVE SPECIALIST Work Phone: [facility] 05-13-2023 13:13-0400 Systolic blood pressure 136 mm[Hg] Sreekanth Richardson APRN.SUPERVISORY INVESTIGATIVE SPECIALIST Work Phone: [facility] 04-24-2023 13:45-0400 Body height 182.9 cm Jose Alfredo Lindquist MD Work Phone: [facility] 04-24-2023 13:45-0400 Body temperature 97.3 [degF] Jose Alfredo Lindquist MD Work Phone: [facility] 04-24-2023 13:45-0400 Body weight 136.08 kg Jose Alfredo Lindquist MD Work Phone: [facility] 04-24-2023 13:45-0400 Diastolic blood pressure 72 mm[Hg] Jose Alfredo Lindquist MD Work Phone: [facility] 04-24-2023 13:45-0400 Heart rate 68 /min Jose Alfredo Lindquist MD Work Phone: [facility] 04-24-2023 13:45-0400 SaO2% (BldA) [Mass fraction] 96 % Jose Alfredo Lindquist MD Work Phone: [facility] 04-24-2023 13:45-0400 Systolic blood pressure 130 mm[Hg] Jose Alfredo Lindquist MD Work Phone: [facility] 04-11-2023 13:26-0400 Body temperature 98.8 [degF] Sreekanth Bonita GEOSPATIAL SPECIALIST.SUPERVISORY INVESTIGATIVE SPECIALIST Work Phone: [facility] 04-11-2023 13:26-0400 Body weight 135.08 kg Sreekanth Bonita GEOSPATIAL SPECIALIST.SUPERVISORY INVESTIGATIVE SPECIALIST Work Phone: [facility] 04-11-2023 13:26-0400 Diastolic blood pressure 80 mm[Hg] Sreekanth Bonita GEOSPATIAL SPECIALIST.SUPERVISORY INVESTIGATIVE SPECIALIST Work Phone: [facility] 04-11-2023 13:26-0400 Heart rate 61 /min Sreekanth Bonita GEOSPATIAL SPECIALIST.SUPERVISORY INVESTIGATIVE SPECIALIST Work Phone: [facility] 04-11-2023 13:26-0400 Respiratory rate 20 /min Sreekanth Bonita GEOSPATIAL SPECIALIST.SUPERVISORY INVESTIGATIVE SPECIALIST Work Phone: [facility] 04-11-2023 13:26-0400 SaO2% (BldA) [Mass fraction] 96 % Sreekanth Bonita GEOSPATIAL SPECIALIST.SUPERVISORY INVESTIGATIVE SPECIALIST Work Phone: [facility] 04-11-2023 13:26-0400 Systolic blood pressure 130 mm[Hg] Sreekanth Bonita GEOSPATIAL SPECIALIST.SUPERVISORY INVESTIGATIVE SPECIALIST Work Phone: [facility] 02-11-2023 10:22-0400 Body temperature 97.7 [degF] Sreekanth Bonita GEOSPATIAL SPECIALIST.SUPERVISORY INVESTIGATIVE SPECIALIST Work Phone: [facility] 02-11-2023 10:22-0400 Body weight 141.79 kg Sreekanth Bonita GEOSPATIAL SPECIALIST.SUPERVISORY INVESTIGATIVE SPECIALIST Work Phone: [facility] 02-11-2023 10:22-0400 Diastolic blood pressure 80 mm[Hg] Sreekanth Bonita GEOSPATIAL SPECIALIST.SUPERVISORY INVESTIGATIVE SPECIALIST Work Phone: [facility] 02-11-2023 10:22-0400 Heart rate 60 /min Sreekanth Bonita GEOSPATIAL SPECIALIST.SUPERVISORY INVESTIGATIVE SPECIALIST Work Phone: [facility] 02-11-2023 10:22-0400 Respiratory rate 20 /min Sreekanth Bonita GEOSPATIAL SPECIALIST.SUPERVISORY INVESTIGATIVE SPECIALIST Work Phone: [facility] 02-11-2023 10:22-0400 SaO2% (BldA) [Mass fraction] 95 % Sreekanth Bonita GEOSPATIAL SPECIALIST.SUPERVISORY INVESTIGATIVE SPECIALIST Work Phone: [facility] 02-11-2023 10:22-0400 Systolic blood pressure 132 mm[Hg] Sreekanth Bonita GEOSPATIAL SPECIALIST.SUPERVISORY INVESTIGATIVE SPECIALIST Work Phone: [facility] 11-12-2022 13:14-0400 Body weight 136.08 kg Sreekanth Bonita GEOSPATIAL SPECIALIST.SUPERVISORY INVESTIGATIVE SPECIALIST Work Phone: [facility] 11-12-2022 13:14-0400 Diastolic blood pressure 62 mm[Hg] Sreekanth Bonita GEOSPATIAL SPECIALIST.SUPERVISORY INVESTIGATIVE SPECIALIST Work Phone: [facility] 11-12-2022 13:14-0400 Systolic blood pressure 108 mm[Hg] Sreekanth Bonita GEOSPATIAL SPECIALIST.SUPERVISORY INVESTIGATIVE SPECIALIST Work Phone: [facility] 11-12-2022 13:09-0400 Heart rate 61 /min Sreekanth Bonita GEOSPATIAL SPECIALIST.SUPERVISORY INVESTIGATIVE SPECIALIST Work Phone: [facility] 11-12-2022 13:09-0400 Respiratory rate 18 /min Sreekanth Bonita GEOSPATIAL SPECIALIST.SUPERVISORY INVESTIGATIVE SPECIALIST Work Phone: [facility] 11-12-2022 13:09-0400 SaO2% (BldA) [Mass fraction] 95 % Sreekanth Bonita GEOSPATIAL SPECIALIST.SUPERVISORY INVESTIGATIVE SPECIALIST Work Phone: [facility] 10-22-2022 12:54-0400 Body temperature 99.39 [degF] Sreekanth Bonita GEOSPATIAL SPECIALIST.SUPERVISORY INVESTIGATIVE SPECIALIST Work Phone: [facility] 10-22-2022 12:54-0400 Body weight 141.07 kg Sreekanth Bonita GEOSPATIAL SPECIALIST.SUPERVISORY INVESTIGATIVE SPECIALIST Work Phone: [facility] 10-22-2022 12:54-0400 Diastolic blood pressure 72 mm[Hg] Sreekanth Bonita GEOSPATIAL SPECIALIST.SUPERVISORY INVESTIGATIVE SPECIALIST Work Phone: [facility] 10-22-2022 12:54-0400 Heart rate 60 /min Sreekanth Bonita GEOSPATIAL SPECIALIST.SUPERVISORY INVESTIGATIVE SPECIALIST Work Phone: [facility] 10-22-2022 12:54-0400 Respiratory rate 28 /min Sreekanth Bonita GEOSPATIAL SPECIALIST.SUPERVISORY INVESTIGATIVE SPECIALIST Work Phone: [facility] 10-22-2022 12:54-0400 SaO2% (BldA) [Mass fraction] 95 % Sreekanth Bonita GEOSPATIAL SPECIALIST.SUPERVISORY INVESTIGATIVE SPECIALIST Work Phone: [facility] 10-22-2022 12:54-0400 Systolic blood pressure 126 mm[Hg] Sreekanth Bonita GEOSPATIAL SPECIALIST.SUPERVISORY INVESTIGATIVE SPECIALIST Work Phone: [facility] 10-17-2022 18:12-0400 Body temperature 97.9 [degF] Tremayne Ch MD Work Phone: [facility] 10-17-2022 18:12-0400 Diastolic blood pressure 86 mm[Hg] Tremayne Ch MD Work Phone: [facility] 10-17-2022 18:12-0400 Heart rate 60 /min Tremayne Ch MD Work Phone: [facility] 10-17-2022 18:12-0400 Respiratory rate 18 /min Tremayne Ch MD Work Phone: [facility] 10-17-2022 18:12-0400 SaO2% (BldA) [Mass fraction] 96 % Tremayne Ch MD Work Phone: [facility] 10-17-2022 18:12-0400 Systolic blood pressure 142 mm[Hg] Tremayne Ch MD Work Phone: [facility] 04-08-2022 07:12-0400 Body temperature 97.81 [degF] Sreekanth Bonita GEOSPATIAL SPECIALIST.SUPERVISORY INVESTIGATIVE SPECIALIST Work Phone: [facility] 04-08-2022 07:12-0400 Body weight 142.97 kg Sreekanth Bonita GEOSPATIAL SPECIALIST.SUPERVISORY INVESTIGATIVE SPECIALIST Work Phone: [facility] 04-08-2022 07:12-0400 Diastolic blood pressure 88 mm[Hg] Sreekanth Bonita GEOSPATIAL SPECIALIST.SUPERVISORY INVESTIGATIVE SPECIALIST Work Phone: [facility] 04-08-2022 07:12-0400 Heart rate 88 /min Sreekanth Bonita GEOSPATIAL SPECIALIST.SUPERVISORY INVESTIGATIVE SPECIALIST Work Phone: [facility] 04-08-2022 07:12-0400 Respiratory rate 16 /min Sreekanth Bonita GEOSPATIAL SPECIALIST.SUPERVISORY INVESTIGATIVE SPECIALIST Work Phone: [facility] 04-08-2022 07:12-0400 Systolic blood pressure 138 mm[Hg] Sreekanth Bonita GEOSPATIAL SPECIALIST.SUPERVISORY INVESTIGATIVE SPECIALIST Work Phone: [facility] 01-07-2022 07:00-0400 Body temperature 97.39 [degF] Sreekanth Bonita GEOSPATIAL SPECIALIST.SUPERVISORY INVESTIGATIVE SPECIALIST Work Phone: [facility] 01-07-2022 07:00-0400 Body weight 142.88 kg Sreekanth Bonita GEOSPATIAL SPECIALIST.SUPERVISORY INVESTIGATIVE SPECIALIST Work Phone: [facility] 01-07-2022 07:00-0400 Diastolic blood pressure 80 mm[Hg] Sreekanth Bonita GEOSPATIAL SPECIALIST.SUPERVISORY INVESTIGATIVE SPECIALIST Work Phone: [facility] 01-07-2022 07:00-0400 Heart rate 80 /min Sreekanth Bonita GEOSPATIAL SPECIALIST.SUPERVISORY INVESTIGATIVE SPECIALIST Work Phone: [facility] 01-07-2022 07:00-0400 Respiratory rate 16 /min Sreekanth Obnita GEOSPATIAL SPECIALIST.SUPERVISORY INVESTIGATIVE SPECIALIST Work Phone: [facility] 01-07-2022 07:00-0400 Systolic blood pressure 132 mm[Hg] Sreekanth Bonita GEOSPATIAL SPECIALIST.SUPERVISORY INVESTIGATIVE SPECIALIST Work Phone: [facility] 02-20-2017 11:37-0400 BMI (Body Mass Index) 46.57 kg/m2 AKHIL [facility] Work Phone: 02-20-2017 11:37-0400 BP Diastolic 82 mm[Hg] AKHIL [facility] Work Phone: 02-20-2017 11:37-0400 BP Systolic 130 mm[Hg] Willow Peguero RN [facility] Work Phone: 02-20-2017 11:37-0400 Height 182.88 cm Willow Peguero RN [facility] Work Phone: 02-20-2017 11:37-0400 Pulse (Heart Rate) 72 /min Willow Peguero RN [facility] Work Phone: 02-20-2017 11:37-0400 Respiratory Rate 17 /min Willow Peguero RN [facility] Work Phone: 02-20-2017 11:37-0400 Weight 155.77 kg Willow Peguero RN [facility] Work Phone: 06-21-2016 15:01-0500 BSA (Body Surface Area) 2.69 m2 AKHIL [facility] Work Phone: 08-10-2015 15:52-0500 BP Diastolic 80 mm[Hg] Willow Peguero RN [facility] Work Phone: 08-10-2015 15:52-0500 BP Systolic 128 mm[Hg] Willow Peguero RN [facility] Work Phone: 08-10-2015 15:52-0500 Pulse (Heart Rate) 68 /min Willow Peguero RN [facility] Work Phone: 03-28-2015 14:51-0400 BP Diastolic 64 mm[Hg] Willow Peguero RN [facility] Work Phone: 03-28-2015 14:51-0400 BP Systolic 100 mm[Hg] Willow Peguero RN [facility] Work Phone: 03-28-2015 14:51-0400 Pulse (Heart Rate) 60 /min Willow Peguero RN [facility] Work Phone: Encounters Encounter Date Encounter Type Care Provider Facility Start: 05-24-2023 Refill Sreekanth RICE RN.SUPERVISORY INVESTIGATIVE SPECIALIST Work Phone: [facility] [place] Procedures Date Procedure Procedure Detail Performing Clinician Start: 05-13-2023 INFLUENZA VACCINE, A GE 6 MO - 64 YR, QUADRIVALENT (AFLURIA, FLULAVAL, FLUZONE) Sreekanth Richardson APRN.SUPERVISORY INVESTIGATIVE SPECIALIST Work Phone: Start: 04-08-2022 INFLUENZA VACCINE QUADRIVALENT 6 MO - 64 YRS IM Sreekanth Richardson APRN.SUPERVISORY INVESTIGATIVE SPECIALIST Work Phone: Start: 05-27-2017 End: 05-28-2017 Prgrmg eval implantable in person multi lead dfb Antonio Leon MD Start: 02-20-2017 End: 02-24-2017 *BMP Roberth Toscano [employer]IDENT AND [employer]F [employer]IC[employer] Work Phone: Start: 02-20-2017 End: 02-21-2017 INVENTORY CONTROL/SHIPPING RECEIVING Roberth Toscano PRESIDENT AND CHIEF COMMERCIAL OFFICER Work Phone: Start: 02-20-2017 End: 02-21-2017 Follow Up Appt 6 months Roberth Toscano PRESIDENT AND CHIEF COMMERCIAL OFFICER Work Phone: Start: 02-20-2017 End: 02-24-2017 Natriuretic peptide B [Mass/volume] in Blood Robreth Toscano PRESIDENT AND CHIEF COMMERCIAL OFFICER Work Phone: Start: 02-18-2017 End: 02-21-2017 Follow Up Appt 6 months Elsy Jewell Start: 02-18-2017 End: 02-21-2017 Pacer Clinic Antonio Leon MD Start: 02-18-2017 End: 02-18-2017 Prgrmg eval implantable in person multi lead dfb Antonio Leon MD Start: 12-23-2016 End: 12-23-2016 *ZACHARY Leon MD Start: 11-21-2016 End: 12-16-2016 *ZACHARY Leon MD Start: 11-21-2016 End: 12-18-2016 Echocardiography Antonio Leon MD Start: 11-21-2016 End: 11-21-2016 Follow Up Appt 3 months Elsy Jewell Start: 11-21-2016 End: 12-16-2016 Magnesium [Mass/volume] in Serum or Plasma Antonio Leon MD Start: 11-21-2016 End: 11-21-2016 MMM Antonio Leon MD Start: 11-21-2016 End: 12-16-2016 Natriuretic peptide B [Mass/volume] in Blood Antonio Leon MD Start: 11-12-2016 End: 02-11-2017 Follow Up Appt 3 months Elsy Jewell Start: 11-12-2016 End: 02-11-2017 Pacer Clinic Antonio Leon MD Start: 11-12-2016 End: 11-12-2016 Prgrmg eval implantable in person multi lead dfb Antonio Leon MD Start: 08-23-2016 End: 08-23-2016 *ZACHARY Leon MD Start: 08-23-2016 End: 08-23-2016 CBC W Auto Differential panel - Blood Antonio Leon MD Start: 08-23-2016 End: 08-23-2016 Magnesium [Mass/volume] in Serum or Plasma Antonio Leon MD Start: 08-23-2016 End: 08-23-2016 Prgrmg eval implantable in person multi lead dfb Antonio Leon MD Start: 08-23-2016 End: 08-23-2016 Thyrotropin [Units/volume] in Serum or Plasma Antonio Leon MD Start: 08-23-2016 End: 08-23-2016 Thyroxine (T4) [Mass/volume] in Serum or Plasma Antonio Leon MD Start: 08-06-2016 End: 12-18-2016 Follow Up Appt 3 months Elsy Jewell Start: 08-06-2016 End: 12-18-2016 Pacer Clinic Antonio Leon MD Start: 08-06-2016 End: 08-07-2016 Prgrmg eval implantable in person multi lead timothyb Antonio Leon MD Start: 07-04-2016 End: 12-18-2016 Echocardiography Heather Weir PA-C Work Phone: Start: 06-21-2016 End: 06-21-2016 INVENTORY CONTROL/SHIPPING RECEIVING Heather Weir PA-C Work Phone: Start: 06-21-2016 End: 06-21-2016 Follow Up Appt 6 months Heather macias PA-C Work Phone: Start: 05-07-2016 End: 06-04-2016 Follow Up Appt 3 months Heather macias PA-C Work Phone: Start: 05-07-2016 End: 06-04-2016 Pacer Clinic Heather Weir PA-C Work Phone: Start: 05-07-2016 End: 05-07-2016 Prgrmg eval implantable in person multi lead dfb Heather Weir PA-C Work Phone: Start: 02-22-2016 End: 02-23-2016 Prgrmg eval implantable in person multi lead dfb Antonio Leon MD Start: 01-30-2016 End: 06-04-2016 Follow Up Appt 3 months Elsy Jewell Start: 01-30-2016 End: 06-04-2016 Pacer Clinic Antonio Leon MD Start: 01-30-2016 End: 01-31-2016 Prgrmg eval implantable in person multi lead dfb Antonio Leon MD Start: 11-09-2015 End: 11-09-2015 Follow Up Appt 6 months Elsy Jewell Start: 11-09-2015 End: 11-09-2015 [facility] Antonio Leon MD Start: 10-04-2015 End: 10-05-2015 Patient referral to dietitian Antonio Green MD Start: 09-26-2015 End: 11-09-2015 Follow Up Appt 3 months Elsy Jewell Start: 09-26-2015 End: 11-09-2015 Pacer Clinic Antonio Leon MD Start: 09-26-2015 End: 09-26-2015 Prgrmg eval implantable in person multi lead dfb Antonio Leon MD Start: 09-14-2015 End: 09-14-2015 Follow Up Appt Other Heather jenkins PA-C Work Phone: Start: 09-14-2015 End: 06-12-2016 Thyrotropin [Units/volume] in Serum or Plasma Heather Weir PA-C Work Phone: Start: 09-07-2015 End: 09-07-2016 INR in Platelet poor plasma by Coagulation assay Antonio Leon MD Start: 08-10-2015 End: 08-10-2015 INVENTORY CONTROL/SHIPPING RECEIVING Antonio Leon MD Start: 08-10-2015 End: 08-10-2015 Follow Up Appt 3 months Elsy Jewell Start: 06-20-2015 End: 08-10-2015 Follow Up Appt 3 months Heather macias PA-C Work Phone: Start: 06-20-2015 End: 08-10-2015 Pacer Clinic Heather Weir PA-C Work Phone: Start: 06-20-2015 End: 06-21-2015 Prgrmg eval implantable in person multi lead dfb Heather Weir PA-C Work Phone: Start: 05-09-2015 End: 09-14-2015 Cardiac Rehab Antonio Leon MD Start: 05-09-2015 End: 05-10-2015 Documentation of current medications Antonio Leon MD Start: 05-09-2015 End: 08-10-2015 Follow Up Appt 3 months Elsy Jewell Start: 05-09-2015 End: 08-10-2015 KAELA Leon MD Start: 05-01-2015 End: 05-02-2015 Echocardiography Antonio Leon MD Start: 04-21-2015 Colonoscopy Rob sandoval MD Work Phone: Start: 03-28-2015 End: 03-28-2015 INVENTORY CONTROL/SHIPPING RECEIVING Heather Weir PA-C Work Phone: Start: 03-28-2015 End: 03-28-2015 Follow Up Appt 6 weeks Heather villanueva PA-C Work Phone: Start: 03-28-2015 End: 09-14-2015 Follow Up Appt Other Heather jenkins PA-C Work Phone: Start: 03-21-2015 End: 03-28-2015 Follow Up Appt 3 months Heather macias PA-C Work Phone: Start: 03-21-2015 End: 03-28-2015 Pacer Clinic Heather Weir PA-C Work Phone: Start: 03-21-2015 End: 03-21-2015 Prgrmg eval implantable in person multi lead dfb Heather Weir PA-C Work Phone: Start: 02-08-2015 End: 03-28-2015 Follow Up Appt 1 month Antonio Leon MD Start: 02-08-2015 End: 03-28-2015 Pacer Clinic Antonio Leon MD Start: 02-08-2015 End: 02-08-2015 Prgrmg eval implantable in person multi lead dfb Antonio Leon MD Start: 02-01-2015 End: 02-01-2015 INVENTORY CONTROL/SHIPPING RECEIVING Antonio Leon MD Start: 02-01-2015 End: 02-02-2015 Documentation of current medications Antonio Leon MD Start: 02-01-2015 End: 02-01-2015 Follow Up Appt 6 months Elsy Jewell Start: 01-18-2015 End: 02-01-2015 Follow Up Appt 1 month Antonio Leon MD Start: 01-18-2015 End: 01-18-2015 Nurse, Teaching, Wound Check (no charge) Antonio Leon MD Start: 01-18-2015 End: 02-01-2015 Pacer Clinic Antonio Leon MD Start: 12-22-2014 End: 12-22-2014 INVENTORY CONTROL/SHIPPING RECEIVING Antonio Leon MD Start: 12-22-2014 End: 12-23-2014 Documentation of current medications Antonio Leon MD Start: 12-22-2014 End: 12-22-2014 Ecg routine ecg w/least 12 lds w/i&r Antonio Leon MD Start: 12-22-2014 End: 12-22-2014 Follow Up Appt 3 months Elsy Jewell Start: 12-14-2014 End: 02-01-2015 Cardiac Referral Antonio Leon MD Start: 12-14-2014 End: 02-01-2015 Follow Up Appt 1 month Antonio Leon MD Start: 12-14-2014 End: 02-01-2015 Pacer Clinic Antonio Leon MD Start: 12-14-2014 End: 12-14-2014 Program eval implantable in persn dual ld pacer Antonio Leon MD Start: 11-30-2014 End: 02-01-2015 Ecg routine ecg w/least 12 lds w/i&r Antonio Leon MD Start: 11-30-2014 End: 12-13-2014 Prgrmg eval implantable in prsn dual lead dfb Antonio Leon MD Start: 11-14-2014 End: 11-18-2014 *ZACHARY Leon MD Start: 11-14-2014 End: 02-01-2015 Cardioversion Antonio Leon MD Start: 11-14-2014 End: 11-18-2014 INR in Platelet poor plasma by Coagulation assay Antonio Leon MD Start: 11-14-2014 End: 11-14-2014 Prgrmg eval implantable in prsn dual lead dfb Antonio Leon MD Start: 11-04-2014 End: 11-07-2014 *ZACHARY Leon MD Start: 11-04-2014 End: 02-01-2015 Cardioversion Antonio Leon MD Start: 11-04-2014 End: 11-04-2014 INVENTORY CONTROL/SHIPPING RECEIVING Antonio Leon MD Start: 11-04-2014 End: 11-05-2014 Documentation of current medications Antonio Leon MD Start: 11-04-2014 End: 11-04-2014 Ecg routine ecg w/least 12 lds w/i&r Antonio Leon MD Start: 11-04-2014 End: 02-01-2015 Follow Up Appt 3 months Elsy Jewell Start: 11-04-2014 End: 11-07-2014 INR in Platelet poor plasma by Coagulation assay Antonio Leon MD Start: 11-04-2014 End: 02-01-2015 Pacer Clinic Antonio Leon MD Start: 11-04-2014 End: 11-07-2014 Prgrmg eval implantable in prsn dual lead dfb Antonio Leon MD Start: 10-31-2014 End: 11-04-2014 Ecg routine ecg w/least 12 lds w/i&r Antonio Leon MD Start: 10-04-2014 End: 10-04-2014 INVENTORY CONTROL/SHIPPING RECEIVING Heather Weir PA-C Work Phone: Start: 10-04-2014 End: 10-05-2014 Documentation of current medications Heather Weir PA-C Work Phone: Start: 10-04-2014 End: 02-01-2015 Echocardiography Heather Weir PA-C Work Phone: Start: 10-04-2014 End: 10-04-2014 Follow Up Appt 1 month Antonio Leon MD Start: 10-04-2014 End: 10-04-2014 Follow Up Appt 3 months Heather macias PA-C Work Phone: Start: 10-04-2014 End: 10-04-2014 Nurse, Teaching, Wound Check (no charge) Antonio Leon MD Start: 10-04-2014 End: 10-04-2014 Pacer Clinic Antonio Leon MD Start: 08-05-2014 End: 09-21-2014 INR in Platelet poor plasma by Coagulation assay Antonio Leon MD Start: 08-03-2014 End: 08-03-2014 Cardiac Referral Anotnio Leon MD Start: 08-02-2014 End: 09-21-2014 Complete sleep workup (PSG,CPAP as indicated) & Follow up Antonio Leon MD Start: 08-02-2014 End: 08-02-2014 INVENTORY CONTROL/SHIPPING RECEIVING Antonio Leon MD Start: 08-02-2014 End: 08-03-2014 Documentation of current medications Antonio Leon MD Start: 08-02-2014 End: 08-02-2014 Follow Up Appt 3 months Elsy Jewell Start: 08-02-2014 End: 10-04-2014 Follow Up Appt Other Antonio Leon MD Start: 06-16-2014 End: 06-21-2014 *BMP Heather Weir PA-C Work Phone: Start: 06-16-2014 End: 06-21-2014 aPTT in Platelet poor plasma by Coagulation assay Heather Weir PA-C Work Phone: Start: 06-16-2014 End: 06-21-2014 CBC W Auto Differential panel - Blood Heather Weir PA-C Work Phone: Start: 06-16-2014 End: 09-21-2014 Chest x-ray Heather Weir PA-C Work Phone: Start: 06-16-2014 End: 06-16-2014 INVENTORY CONTROL/SHIPPING RECEIVING Heather Weir PA-C Work Phone: Start: 06-16-2014 End: 06-16-2014 Ecg routine ecg w/least 12 lds w/i&r Heather Weir PA-C Work Phone: Start: 06-16-2014 End: 06-16-2014 Follow Up Appt 1 month Heather villanueva PA-C Work Phone: Start: 06-16-2014 End: 06-21-2014 INR in Platelet poor plasma by Coagulation assay Heather Weir PA-C Work Phone: Start: 06-16-2014 End: 09-21-2014 Left Heart Cath Heather Weir PA-C Work Phone: Start: 06-16-2014 End: 06-16-2014 Nurse, Teaching, Wound Check (no charge) Heather Weir PA-C Work Phone: Start: 03-28-2014 End: 03-28-2014 INVENTORY CONTROL/SHIPPING RECEIVING Heather Weir PA-C Work Phone: Start: 03-28-2014 End: 06-13-2014 Echocardiography Heather Weir PA-C Work Phone: Start: 03-28-2014 End: 03-28-2014 Follow Up Appt 6 months Heather macias PA-C Work Phone: Start: 03-28-2014 End: 06-21-2014 Follow Up Appt Other Heather jenkins PA-C Work Phone: Start: 08-18-2013 End: 02-02-2014 Ecg routine ecg w/least 12 lds w/i&r Antonio Leon MD Start: 08-18-2013 End: 02-02-2014 Follow Up Appt 6 months Elsy Jewell Start: 08-18-2013 End: 03-28-2014 INR in Platelet poor plasma by Coagulation assay Antonio Leon MD Start: 08-18-2013 End: 02-02-2014 MMM Antonio Leon MD Plan of Treatment Date Care Activity Detail Author Start: 04-06-2027 PROSTATE CANCER SCRE ENING DISCUSSION PROSTATE CANCER SCREENING DISCUSSION [facility] Start: 05-13-2024 Annual PCP Team Medical Clerk jacqueline Disease Visit Annual PCP Team Chronic Disease Visit [facility] Start: 05-13-2024 Hepatitis B screening Urine Al bumin:Creatinine Ratio [facility] Start: 05-13-2024 Hepatitis B surface antibody level LDL Cholesterol [facility] Start: 05-13-2024 Serum Creatinine Serum Creatinine Cl [facility] Start: 04-11-2024 Annual PCP Team Medical Clerk jacqueline Disease Visit Annual PCP Team Chronic Disease Visit [facility] Start: 04-10-2024 Fecal Occult Blood Fecal Occult Bloo d [facility] Start: 02-12-2024 ANNUAL PCP TEAM DIRECTOR FOUNDATION JACQUELINE DISEASE VISIT ANNUAL PCP TEAM CHRONIC DISEASE VISIT [facility] Start: 02-12-2024 SERUM CREATININE SERUM CREATININE Cl [facility] Start: 11-13-2023 ANNUAL PCP TEAM DIRECTOR FOUNDATION JACQUELINE DISEASE VISIT ANNUAL PCP TEAM CHRONIC DISEASE VISIT [facility] Start: 11-13-2023 BP CONTROLLED (<130/80) BP CONTROLLE D (<130/80) [facility] Start: 11-13-2023 HIV SCREENING HIV SCREENING [facility] Immunizations Immunization Date Immunization Notes Care Provider Ying holt 05-13-2023 influenza, injectabl e, quadrivalent, contains preservative Sreekanth Bonita GEOSPATIAL SPECIALIST.SUPERVISORY INVESTIGATIVE SPECIALIST Work Phone: [facility] 05-13-2023 pneumococcal (PCV20) vaccine, 20 valent (PREVNAR 20) Sreekanth Bonita GEOSPATIAL SPECIALIST.SUPERVISORY INVESTIGATIVE SPECIALIST Work Phone: [facility] 05-13-2023 pneumococcal Conjugate, unspecified formulation Sreekanth Bonita GEOSPATIAL SPECIALIST.SUPERVISORY INVESTIGATIVE SPECIALIST Work Phone: [facility] Work Phone: 04-08-2022 influenza, injectabl e, quadrivalent, contains preservative Sreekanth Bonita GEOSPATIAL SPECIALIST.SUPERVISORY INVESTIGATIVE SPECIALIST Work Phone: [facility] 04-08-2022 influenza virus vaccine, unspecified formulation Sreekanth Bonita GEOSPATIAL SPECIALIST.SUPERVISORY INVESTIGATIVE SPECIALIST Work Phone: [facility] 06-01-2021 influenza, injectabl e, quadrivalent, contains preservative Rob Smiley MD Work Phone: [facility] 04-24-2020 influenza, injectabl e, quadrivalent, contains preservative Rob Smiley MD Work Phone: [facility] 04-13-2019 influenza, injectabl e, quadrivalent, contains preservative Rob Smiley MD Work Phone: [facility] Work Phone: 03-24-2018 influenza, injectabl e, quadrivalent, contains preservative Rob Smiley MD Work Phone: [facility] 04-15-2017 influenza, injectabl e, quadrivalent, contains preservative Rob Smiley MD Work Phone: [facility] 04-09-2016 influenza, injectabl e, quadrivalent, contains preservative Rob Smiley MD Work Phone: [facility] Payers Date Payer Category Payer Medicaid [facility] MEDICAID [facility] COMMUNITY PLAN MEDICAID [facility] [id number] 2023-Present [phone] [address] [place] [address] Medicaid [id number] 2023 Medicaid [id number] 2022 Unknown [employer] [id number] 2022-Present [phone] [address] [place] [id number] PPO [id number] 2022 Unknown [id number] 2021 Private Health Insurance [facility] CHOICE PLUS [id number] 2021-Present [phone] [address] [place] [address] HMO [id number] 2021 Private Health Insurance [id number] 2014 Unknown [employer] PPO [id number] 2014-Present [phone] [address] [place] [address] PPO [id number] Social History Date Type Detail Facility Start: 11-24-2014 Tobacco smoking stat us [facility]IS Never smoked tobacco [facility] Start: 06-01-2021 End: 05-13-2023 Alcohol intake Current non-drinker of alcohol (finding) [facility] Start: 06-01-2021 End: 02-11-2023 Alcohol intake [facility] Start: 04-22-2020 End: 10-21-2022 History SDOH Alcohol Frequency 1 [facility] Start: 04-22-2020 End: 10-21-2022 History SDOH Alcohol Std Drinks 98 [facility] Start: 04-22-2020 End: 10-21-2022 History SDOH Social Connections Phone 5 [facility] Start: 04-22-2020 End: 10-21-2022 History SDOH Social Connections Get Together 2 [facility] Start: 04-22-2020 End: 10-21-2022 History SDOH Social Connections Living 3 [facility] Start: 1960 Sex Assigned At Not on file C [facility] Start: 12-28-2021 End: 04-08-2022 Exposure to SARS-CoV-2 (event) Not sure [facility] Start: 11-24-2014 Tobacco use and exposure Smoke less tobacco non-user [facility] Start: 10-21-2022 History SDOH Alcohol Std Drinks 0 [facility] Start: 10-21-2022 History SDOH Social Connections Phone 4 [facility] Start: 10-21-2022 End: 02-11-2023 Social connection and isolation panel [facility] How often do you att end spiritism or orthodox services? Patient refused [facility] Are you now , , , , never or living with a partner? [facility] How often to you hav e a drink containing alcohol? Never [facility] (I/We) worried wheth er (my/our) food would run out before (I/we) got money to buy more. DK or Refused [facility] In the past 12 month s, was there a time when you were not able to pay the mortgage or rent on time? No [facility] Medical Equipment Procedure Code Equipment Code Equipment Origin al Text Equipment Identifier Dates Start: 01-18-2021 End: 02-06-2023 Clinical Notes 11-20-2021 to 05-26-2023 Telephone Encounter - Sreekanth Richardson APRN.CNP - 05/26/2023 12:01 PM ESTTelephone Encounter - Yessi Wilkins Ma - 05/26/2023 11:07 AM ESTPatient InstructionsPatient InstructionsPatient Instructions Note Date & Type Note Facility 05-26-2023 Miscellaneous Notes The following approved medication requests have been transmitted electronically. Requested Prescriptions Pending Prescriptions Disp Refills dulaglutide (TRULICITY) 3 mg/0.5 mL pen injector Sig: Inject 3 mg subcutaneously one time a week. insulin lispro (HUMALOG KWIKPEN INSULIN) 100 unit/mL 10 Each 11 Sig: Inject 20 Units subcutaneously with meals. insulin glargine (LANTUS SOLOSTAR U-100 INSULIN) 100 unit/mL (3 mL) 5 Each 5 Sig: Inject 60 Units subcutaneously daily at bedtime. Sreekanth Richardson APRN.ROGER Last office visit: 05/13/23 F/u scheduled: 08/12/23 Yessi Wilkins Ma documented in this encounter [facility] 05-13-2023 Note HNO ID: [id number] Author: Sreekanth Richardson APRN.ROGER Service: ? Author Type: Nurse Practitioner Type: Progress Notes Filed: 05/13/2023 2:07 PM Note Text: Chief Complaint Patient presents with: 8 week f/u HPI Narinder Sapp is a 63 year old male who presents here today for Chronic Medical Conditions. follow up for DM, C. Diff. Patient is here for 8-week follow-up. Patient has had a litany of ongoing problems but all are slowly improving. At this time he is on his last 7 capsules of vancomycin. This is his second bout of C. difficile in the last 6 months. This was secondary to antibiotic use secondary to pneumonia secondary to a fall at work where he broke some ribs. Ribs are doing better. Diarrhea has resolved. Tolerating the medication. No cough or shortness of breath. Following with cardiology. Has scheduled stress test on June 03 for intermittent chest discomfort. Cardiology unsure if this is cardiac related. Patient looking forward to test to help with calming mind.Bilateral lower extremities are now back to baseline, as they were previously enlarged. Had external hemorrhoid that I saw in the office. It was not thrombosed at that time. He did see general surgery who recommended continued home care and was not excised. At this time the external hemorrhoid is doing well. No longer causing discomfort. No longer causing blood in his stool. Checking blood sugars at home. Getting 130 fasting in the morning if you 160s. Tolerating medications as prescribed. No hypoglycemia. Blood work for diabetes is in the process at the time of this appointment. His neuropathy is for the most part under control. He is taking gabapentin 300 mg at nighttime for neuropathy and also RLS. He is also taking Requip 4 mg total for RLS. Biggest complaint is occasionally having some RLS symptoms in the evening time prior to his nighttime dose of the gabapentin. No grogginess in the morning or other side effects from the gabapentin. Past medical history, appointments, medications, allergies reviewed. EXAM: BP 136/85 Pulse 60 Resp 18 Wt 136 kg (299 lb 12.8 oz) SpO2 99% BMI 40.66 kg/m? General Appearance: Well appearing, alert, in no acute distress, well-hydrated, well nourished. and Obese. Head: Normocephalic, no masses, lesions, tenderness or abnormalities. Lungs: Lungs clear to auscultation. No wheezing, rhonchi, rales.. Heart: RRR without murmur, gallop, or rubs. No ectopy. Extremities: Pulses: 2+, Edema: +1 pitting edema bilaterally. ASSESSMENT/PLAN: 1. Controlled type 2 diabetes mellitus with diabetic polyneuropathy, with long-term current use of insulin ([facility]) - ICD9: 250.60, 357.2, V58.67, ICD10: E11.42, Z79.4 (primary diagnosis) - Control undetermined, due for labs -Continue current medications as prescribed. Await blood testing results. - GABAPENTIN 100 MG CAPSULE 2. C. difficile diarrhea - ICD9: 008.45, ICD10: A04.72 -Resolved, finished vancomycin 3. External hemorrhoid - ICD9: 455.3, ICD10: K64.4 -Resolved 4. Restless leg syndrome - ICD9: 333.94, ICD10: G25.81 -Trial taking gabapentin 100 mg midday with lunch. I encouraged him to take this dose for 2 weeks and then can increase to 200 mg if still not getting resolution of RLS symptoms during the evening. He will MyChart me with this update if this occurs. Continue with Requip and gabapentin at bedtime as prescribed. - GABAPENTIN 100 MG CAPSULE 5. Encounter for immunization - ICD9: V03.89, ICD10: Z23 - INFLUENZA VACCINE, AGE 6 MO - 64 YR, QUADRIVALENT (AFLURIA, FLULAVAL, FLUZONE) - PNEUMOCOCCAL VACCINE (PREVNAR 20) Sreekanth Ricahrdson APRN.CNP RTO in 3 months, sooner if needed. This note was partly generated using [employer] voice recognition dictation and may contain some misspelled or inaccurate words missed on review. [facility] 05-13-2023 Instructions Sreekanth Richardson APRN.CNP - 05/13/2023 1:38 PM EDT Finish Vancomycin Get stress test as scheduled Continue with Requip and Gabapentin 300 mg at bedtime. Start trial of Gabapentin 100 mg midday. Trial for 2 weeks at 100 mg, then if not helping, can increase to 200 mg (2 capsules) midday but Mychart me so that I can call in appropriate refill. Ill let you know about lab results See us back in 3 months. Sreekanth Richardson APRN.CNP documented in this encounter [facility] 05-13-2023 History of Presen t illness Narrative Chief Complaint Patient presents with: 8 week f/u HPI Narinder Sapp is a 63 year old male who presents here today for Chronic Medical Conditions. follow up for DM, C. Diff. Patient is here for 8-week follow-up. Patient has had a litany of ongoing problems but all are slowly improving. At this time he is on his last 7 capsules of vancomycin. This is his second bout of C. difficile in the last 6 months. This was secondary to antibiotic use secondary to pneumonia secondary to a fall at work where he broke some ribs. Ribs are doing better. Diarrhea has resolved. Tolerating the medication. No cough or shortness of breath. Following with cardiology. Has scheduled stress test on June 03 for intermittent chest discomfort. Cardiology unsure if this is cardiac related. Patient looking forward to test to help with calming mind.Bilateral lower extremities are now back to baseline, as they were previously enlarged. Had external hemorrhoid that I saw in the office. It was not thrombosed at that time. He did see general surgery who recommended continued home care and was not excised. At this time the external hemorrhoid is doing well. No longer causing discomfort. No longer causing blood in his stool. Checking blood sugars at home. Getting 130 fasting in the morning if you 160s. Tolerating medications as prescribed. No hypoglycemia. Blood work for diabetes is in the process at the time of this appointment. His neuropathy is for the most part under control. He is taking gabapentin 300 mg at nighttime for neuropathy and also RLS. He is also taking Requip 4 mg total for RLS. Biggest complaint is occasionally having some RLS symptoms in the evening time prior to his nighttime dose of the gabapentin. No grogginess in the morning or other side effects from the gabapentin. Past medical history, appointments, medications, allergies reviewed. EXAM: BP 136/85 Pulse 60 Resp 18 Wt 136 kg (299 lb 12.8 oz) SpO2 99% BMI 40.66 kg/m General Appearance: Well appearing, alert, in no acute distress, well-hydrated, well nourished. and Obese. Head: Normocephalic, no masses, lesions, tenderness or abnormalities. Lungs: Lungs clear to auscultation. No wheezing, rhonchi, rales.. Heart: RRR without murmur, gallop, or rubs. No ectopy. Extremities: Pulses: 2+, Edema: +1 pitting edema bilaterally. ASSESSMENT/PLAN: 1. Controlled type 2 diabetes mellitus with diabetic polyneuropathy, with long-term current use of insulin ([facility]) - ICD9: 250.60, 357.2, V58.67, ICD10: E11.42, Z79.4 (primary diagnosis) - Control undetermined, due for labs -Continue current medications as prescribed. Await blood testing results. - GABAPENTIN 100 MG CAPSULE 2. C. difficile diarrhea - ICD9: 008.45, ICD10: A04.72 -Resolved, finished vancomycin 3. External hemorrhoid - ICD9: 455.3, ICD10: K64.4 -Resolved 4. Restless leg syndrome - ICD9: 333.94, ICD10: G25.81 -Trial taking gabapentin 100 mg midday with lunch. I encouraged him to take this dose for 2 weeks and then can increase to 200 mg if still not getting resolution of RLS symptoms during the evening. He will MyChart me with this update if this occurs. Continue with Requip and gabapentin at bedtime as prescribed. - GABAPENTIN 100 MG CAPSULE 5. Encounter for immunization - ICD9: V03.89, ICD10: Z23 - INFLUENZA VACCINE, AGE 6 MO - 64 YR, QUADRIVALENT (AFLURIA, FLULAVAL, FLUZONE) - PNEUMOCOCCAL VACCINE (PREVNAR 20) Sreekanth Richardson APRN.CNP RTO in 3 months, sooner if needed. This note was partly generated using [employer] voice recognition dictation and may contain some misspelled or inaccurate words missed on review. documented in this encounter [facility] 05-01-2023 Miscellaneous Notes The following approved medication requests have been transmitted electronically. Requested Prescriptions Pending Prescriptions Disp Refills sertraline (ZOLOFT) 100 mg tablet 30 tablet 11 Sig: Take 1 tablet by mouth once daily. Ayaka Vang APRN.ROGER Patient has been identified by name and date of : Yes, Provider Dr. Smiley Date 05/01/23 Time 8:05 am Patient phones for refill(s): Requested Prescriptions Pending Prescriptions Disp Refills sertraline (ZOLOFT) 100 mg tablet 30 tablet 11 Sig: Take 1 tablet by mouth once daily. Date of last office visit in primary care: 04/11/2023 Date of next office visit in primary care: 05/13/2023 Last 2 Encounter Wt Readings: Date: Wt: 04/24/2023 136.1 kg (300 lb) 04/11/2023 135.1 kg (297 lb 12.8 oz) Previous labs/tests for medication: Not applicable Thank you. Leidy Burgos LPN. documented in this encounter [facility] 04-27-2023 Note HNO ID: [id number] Author: Jose Alfredo Lindquist MD Service: ? Author Type: Physician Type: Progress Notes Filed: 04/27/2023 8:26 PM Note Text: HISTORY AND PHYSICAL Narinder Sapp 1960 REFERRING PHYSICIAN: Jose Alfredo Lindquist MD CHIEF COMPLAINT: Thrombosed hemorrhoid HPI: Narinder is a 63 year old male with a complaint of a thrombosed hemorrhoid. he has noticed anal pain and swelling for the past 2 months. he denies drainage from the thrombosed hemorrhoid. Narinder denies a prior history of thrombosed hemorrhoids. he denies a history of constipation and straining. 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 He has had multiple loose stools. His symptoms started in February when he noted pain in the black spot. At the time he felt the engorged hemorrhoid was approximately quarter sized. He was taking Preparation H with topical piroxicam. He notes no pain currently and that the site is much smaller The patient was seen by his primary care physician and was referred for treatment. [facility] PROBLEMS: PAST MEDICAL HISTORY Diagnosis Date Atrial fibrillation (HCC) Chronic anticoagulation Diabetes type 2, controlled (HCC) Hodgkin's disease, unspecified type, of lymph nodes of multiple sites 1989, 1994 had BMT - 1994 Melanoma (HCC) Morbid obesity (HCC) Other and unspecified hyperlipidemia Hyperlipidemia Retinal tear left Type II or unspecified type diabetes mellitus without mention of complication, uncontrolled Venous insufficiency (chronic) (peripheral) 12/12/2016 OPERATIONS: PAST SURGICAL HISTORY Procedure Laterality Date BIOPSY SOFT TISSUE NECK/CHEST BONE MARROW ASPIRATE AND BIOPSY COLSC FLX W/RMVL OF TUMOR POLYP LESION SNARE TQ 04/21/2015 EGD TRANSORAL BIOPSY SINGLE/MULTIPLE 04/21/2015 INSJ/RPLCMT PERM DFB W/TRNSVNS LDS 1/DUAL CHMBR 09/2014, 12/2014 ICD PAST SURGICAL HISTORY OF 09/2014, 12/2014 cardiac ablation x2 REMV CATARACT EXTRACAP,INSERT LENS Bilateral CURRENT MEDICATIONS: Current Outpatient Medications Medication Sig Dispense Refill apremilast (OTEZLA) 30 mg tablet Take 1 tablet by mouth twice daily. blood sugar diagnostic (ACCU-CHEK SMARTVIEW TEST STRIP) test strip 4Test blood sugar(s) 4 times daily. Dx: 250.02. Insulin: Yes 150 Strip 11 carvedilol (COREG) 3.125 mg tablet Take 1 tablet by mouth twice daily. 180 tablet 3 dulaglutide (TRULICITY) 3 mg/0.5 mL pen injector Inject 3 mg subcutaneously one time a week. furosemide (LASIX) 20 mg tablet Take 1 tablet by mouth once daily. 30 tablet 5 gabapentin (NEURONTIN) 300 mg capsule Take 1 capsule by mouth daily at bedtime for 180 days. 30 capsule 5 HYDROcodone-acetaminophen (NORCO) 5-325 mg per tablet Take 1 tablet by mouth every 6 hours as needed for pain. (Patient not taking: Reported on 04/24/2023) insulin glargine (LANTUS SOLOSTAR U-100 INSULIN) 100 unit/mL (3 mL) Inject 60 Units subcutaneously daily at bedtime. 5 Each 5 insulin lispro (HUMALOG KWIKPEN INSULIN) 100 unit/mL Inject 20 Units subcutaneously w MEALS. 10 Each 11 insulin needles, DISPOSABLE, (UNIFINE PENTIPS) 31 gauge x 5/16 Use one pen needle 4 times/day with insulin 100 Each 11 lovastatin 40 mg tablet Take one tablet daily. metFORMIN ER (GLUCOPHAGE XR) 500 mg 24 hr tablet Take 1 tablet by mouth daily with breakfast. 60 tablet 5 rOPINIRole (REQUIP) 1 mg tablet Take 3-4 tablets by mouth daily at bedtime. Take 3-4 tablets nightly for restless legs 120 tablet 11 sertraline (ZOLOFT) 100 mg tablet Take 1 tablet by mouth once daily. 30 tablet 11 vancomycin (VANCOCIN HCL) 125 mg capsule 125 mg orally 4 times daily for 14 days, then 125 mg orally 2 times daily for 7 days, then 125 mg orally once daily for 7 days, then 125 mg orally every 2 days for 4 weeks 92 capsule 0 warfarin (COUMADIN) 3 mg tablet Take 1 tablet by mouth daily as directed. Take 4.5 mg M-F 3 mg Sat and Sun (Patient taking differently: Take 3 mg by mouth daily as directed. Take 4.5 mg F/Sa/Schuster 3 mg all other days) 0 Current Facility-Administered Medications Medication Dose Route Frequency Provider Last Rate Last Admin perflutren lipid microspheres 1.3 mL in NaCl (PF) 0.9% 10 mL injection (DEFINITY) INTRAVENOUS DIRECTED PRN Sreekanth Richardson, GEOSPATIAL SPECIALIST.SUPERVISORY INVESTIGATIVE SPECIALIST sodium chloride 0.9 % (flush) 10 mL (BD POSIFLUSH) 10 mL INTRAVENOUS DIRECTED PRN Bonita, Sreekanth, GEOSPATIAL SPECIALIST.SUPERVISORY INVESTIGATIVE SPECIALIST ALLERGIES: Penicillin G and Sulfa (Sulfonamide Antibiotics) PERSONAL HISTORY: Social History Tobacco Use Smoking status: Never Smokeless tobacco: Never Substance Use Topics Alcohol use: No Alcohol/week: 1.7 standard drinks of alcohol FAMILY HISTORY: FAMILY HISTORY Problem Relation Age of Onset Heart Father LA REVIEW OF SYMPTOMS: The review of systems data was entered by the nurse and reviewed by mo Nursing Notes: Snow Dunn RN 04/24/2023 1:53 PM Signed REVIEW OF SYSTEMS: General: The patient denies fatigue, (more content not included)... [facility] 04-27-2023 History of Presen t illness Narrative HISTORY AND PHYSICAL Narinder Sapp 1960 REFERRING PHYSICIAN: Jose Alfredo Lindquist MD CHIEF COMPLAINT: Thrombosed hemorrhoid HPI: Narinder is a 63 year old male with a complaint of a thrombosed hemorrhoid. he has noticed anal pain and swelling for the past 2 months. he denies drainage from the thrombosed hemorrhoid. Narinder denies a prior history of thrombosed hemorrhoids. he denies a history of constipation and straining. 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 He has had multiple loose stools. His symptoms started in February when he noted pain in the black spot. At the time he felt the engorged hemorrhoid was approximately quarter sized. He was taking Preparation H with topical piroxicam. He notes no pain currently and that the site is much smaller The patient was seen by his primary care physician and was referred for treatment. SIGNIFICANT MEDICAL PROBLEMS: PAST MEDICAL HISTORY Diagnosis Date Atrial fibrillation (HCC) Chronic anticoagulation Diabetes type 2, controlled (HCC) Hodgkin's disease, unspecified type, of lymph nodes of multiple sites 1989, 1994 had BMT - 1994 Melanoma (HCC) Morbid obesity (HCC) Other and unspecified hyperlipidemia Hyperlipidemia Retinal tear left Type II or unspecified type diabetes mellitus without mention of complication, uncontrolled Venous insufficiency (chronic) (peripheral) 12/12/2016 OPERATIONS: PAST SURGICAL HISTORY Procedure Laterality Date BIOPSY SOFT TISSUE NECK/CHEST BONE MARROW ASPIRATE & BIOPSY COLSC FLX W/RMVL OF TUMOR POLYP LESION SNARE TQ 04/21/2015 EGD TRANSORAL BIOPSY SINGLE/MULTIPLE 04/21/2015 INSJ/RPLCMT PERM DFB W/TRNSVNS LDS 1/DUAL CHMBR 09/2014, 12/2014 ICD PAST SURGICAL HISTORY OF 09/2014, 12/2014 cardiac ablation x2 REMV CATARACT EXTRACAP,INSERT LENS Bilateral CURRENT MEDICATIONS: Current Outpatient Medications Medication Sig Dispense Refill apremilast (OTEZLA) 30 mg tablet Take 1 tablet by mouth twice daily. blood sugar diagnostic (ACCU-CHEK SMARTVIEW TEST STRIP) test strip 4Test blood sugar(s) 4 times daily. Dx: 250.02. Insulin: Yes 150 Strip 11 carvedilol (COREG) 3.125 mg tablet Take 1 tablet by mouth twice daily. 180 tablet 3 dulaglutide (TRULICITY) 3 mg/0.5 mL pen injector Inject 3 mg subcutaneously one time a week. furosemide (LASIX) 20 mg tablet Take 1 tablet by mouth once daily. 30 tablet 5 gabapentin (NEURONTIN) 300 mg capsule Take 1 capsule by mouth daily at bedtime for 180 days. 30 capsule 5 HYDROcodone-acetaminophen (NORCO) 5-325 mg per tablet Take 1 tablet by mouth every 6 hours as needed for pain. (Patient not taking: Reported on 04/24/2023) insulin glargine (LANTUS SOLOSTAR U-100 INSULIN) 100 unit/mL (3 mL) Inject 60 Units subcutaneously daily at bedtime. 5 Each 5 insulin lispro (HUMALOG KWIKPEN INSULIN) 100 unit/mL Inject 20 Units subcutaneously w MEALS. 10 Each 11 insulin needles, DISPOSABLE, (UNIFINE PENTIPS) 31 gauge x 5/16 Use one pen needle 4 times/day with insulin 100 Each 11 lovastatin 40 mg tablet Take one tablet daily. metFORMIN ER (GLUCOPHAGE XR) 500 mg 24 hr tablet Take 1 tablet by mouth daily with breakfast. 60 tablet 5 rOPINIRole (REQUIP) 1 mg tablet Take 3-4 tablets by mouth daily at bedtime. Take 3-4 tablets nightly for restless legs 120 tablet 11 sertraline (ZOLOFT) 100 mg tablet Take 1 tablet by mouth once daily. 30 tablet 11 vancomycin (VANCOCIN HCL) 125 mg capsule 125 mg orally 4 times daily for 14 days, then 125 mg orally 2 times daily for 7 days, then 125 mg orally once daily for 7 days, then 125 mg orally every 2 days for 4 weeks 92 capsule 0 warfarin (COUMADIN) 3 mg tablet Take 1 tablet by mouth daily as directed. Take 4.5 mg M-F 3 mg Sat and Sun (Patient taking differently: Take 3 mg by mouth daily as directed. Take 4.5 mg F/Sa/Schuster 3 mg all other days) 0 Current Facility-Administered Medications Medication Dose Route Frequency Provider Last Rate Last Admin perflutren lipid microspheres 1.3 mL in NaCl (PF) 0.9% 10 mL injection (DEFINITY) INTRAVENOUS DIRECTED PRN Sreekanth Richardson APRN.CNP sodium chloride 0.9 % (flush) 10 mL (BD POSIFLUSH) 10 mL INTRAVENOUS DIRECTED PRN Sreekanth Richardson APRN.CNP ALLERGIES: Penicillin G and Sulfa (Sulfonamide Antibiotics) PERSONAL HISTORY: Social History Tobacco Use Smoking status: Never Smokeless tobacco: Never Substance Use Topics Alcohol use: No Alcohol/week: 1.7 standard drinks of alcohol FAMILY HISTORY: FAMILY HISTORY Problem Relation Age of Onset Heart Father LA REVIEW OF SYMPTOMS: The review of systems data was entered by the nurse and reviewed by mo Nursing Notes: Snow Dunn RN 04/24/2023 1:53 PM Signed REVIEW OF SYSTEMS: General: The patient denies fatigue, denies weight loss, denies weight gain, denies feeling hot, and denies feelings of cold. Eyes: The patient denies glaucoma, NOTES eye injury/surgery, wears glasses or contacts. Ear/Nose/Throat: The patient NOTES allergies, denies hayfever, denies ear infections, and denies bloody noses. Cardiovascular: The patient denies chest pain, NOTES heart disease, denies high blood pressure,denies cardiac stent, denies prior heart attack, NOTES irregular heart beat, NOTES high cholesterol, denies poor circulation, NOTES heart failure, other cardiac issues, denies claudication, denies cold feet, denies peripheral arterial stent. Respiratory: The patient denies tuberculosis, NOTES pneumonia, denies frequent cough, denies pulmonary embolism, denies shortness of breath, and denies coughing up blood. Gastrointestinal: The patient denies difficulty swallowing, denies acid reflux, denies ulcers, denies vomiting, denies jaundice/hepatitis, denies gallbladder problems, denies black or tarry stools, NOTES hemorrhoids, denies bleeding from rectum, denies diverticulitis, denies constipation, NOTES diarrhea, denies loss of stool control, and denies hernias. Kidney/Bladder: The patient denies kidney stones, denies urine infections, and denies bloody urine. Skin: The patient NOTES a history of skin cancer, denies bleeding/changing moles, and denies a history of skin rash. Neurologic: The patient denies a history of epilepsy/convulsions, denies headaches, denies head/spinal injuries, and denies stroke/TIA. Psychiatric: The patient denies psychiatric medications, denies depression, and denies voices, denies substance abuse. Endocrine: The patient denies thyroid disorders, NOTES diabetes, and denies hormonal problems. Hematologic: The patient denies a history of bruising, denies bleeding, and denies anemia, denies blood clots. Infections: The patient denies a history of measles and mumps, denies rheumatic fever, and denies sexually transmitted diseases. Musculoskeletal: The patient denies back pain/injury, denies back problems, denies sciatica, denies knee/foot trouble, denies arthritis, or denies gout. When was patient's last Mammogram screening? N/A Last Colonoscopy: 2014 Snow Dunn RN PHYSICAL EXAMINATION: General: The patient is 63 year old male, well nourished, well hydrated in no acute distress. The patient is oriented to time, place, and person. VITALS: Blood pressure 130/72, pulse 68, temperature 36.3 C (97.3 F), height 182.9 cm (6'), weight 136.1 kg (300 lb), SpO2 96 %. Body mass index is 40.69 kg/m . HEENT: exam deferred Respiratory: exam deferred Cardiac: exam deferred. Abdominal exam: exam deferred Rectal exam: prolapsing resolved thrombosed hemorrhoids. Digital rectal exam - deferred Extremities: exam deferred Other: LABORATORY VALUES: As Noted RADIOLOGIC STUDIES: As Noted Assessment IMPRESSION: STATUS POST SPONTANEOUS RESOLUTION OF THROMBOSED HEMORRHOID PLAN: Narinder is instructed to perform sitz baths twice a day and after each bowel movement. Place dibucaine ointment on anus as needed and before all bowel movements. Keep stools soft and avoid straining if possible. Some bleeding from the incision site where the blood clot was removed is common. If bleeding presists, press on the area with a clean gauze or towel. If pain increases, a new thrombosed hemorrhoid may be present. Return immediately. Return if symptoms fail to improve. Diagnoses: (K64.5) External hemorrhoid, thrombosed (primary encounter diagnosis) My findings have been communicated to Dr. Rob Smiley MD via shared medical record. This note will be forwarded to Dr. Rob Smiley MD. Return to Clinic: The patient is instructed to follow-up with me as needed. Jose Alfredo Lindquist MD documented in this encounter [facility] 04-25-2023 Miscellaneous Notes Faxed. Yessi Wilkins Ma Type of letter/form/fax request - Prescription Assistance-[employer] Form received from fax on 1 floor and placed on MD desk (Dr. Smiley) for completion. Completed form needs to be faxed to [facility] [employer] at [phone]. Route to [place] when form completed for processing documented in this encounter [facility] 04-24-2023 Nurse Note REVIEW OF SYSTEMS: General: The patient denies fatigue, denies weight loss, denies weight gain, denies feeling hot, and denies feelings of cold. Eyes: The patient denies glaucoma, NOTES eye injury/surgery, wears glasses or contacts. Ear/Nose/Throat: The patient NOTES allergies, denies hayfever, denies ear infections, and denies bloody noses. Cardiovascular: The patient denies chest pain, NOTES heart disease, denies high blood pressure,denies cardiac stent, denies prior heart attack, NOTES irregular heart beat, NOTES high cholesterol, denies poor circulation, NOTES heart failure, other cardiac issues, denies claudication, denies cold feet, denies peripheral arterial stent. Respiratory: The patient denies tuberculosis, NOTES pneumonia, denies frequent cough, denies pulmonary embolism, denies shortness of breath, and denies coughing up blood. Gastrointestinal: The patient denies difficulty swallowing, denies acid reflux, denies ulcers, denies vomiting, denies jaundice/hepatitis, denies gallbladder problems, denies black or tarry stools, NOTES hemorrhoids, denies bleeding from rectum, denies diverticulitis, denies constipation, NOTES diarrhea, denies loss of stool control, and denies hernias. Kidney/Bladder: The patient denies kidney stones, denies urine infections, and denies bloody urine. Skin: The patient NOTES a history of skin cancer, denies bleeding/changing moles, and denies a history of skin rash. Neurologic: The patient denies a history of epilepsy/convulsions, denies headaches, denies head/spinal injuries, and denies stroke/TIA. Psychiatric: The patient denies psychiatric medications, denies depression, and denies voices, denies substance abuse. Endocrine: The patient denies thyroid disorders, NOTES diabetes, and denies hormonal problems. Hematologic: The patient denies a history of bruising, denies bleeding, and denies anemia, denies blood clots. Infections: The patient denies a history of measles and mumps, denies rheumatic fever, and denies sexually transmitted diseases. Musculoskeletal: The patient denies back pain/injury, denies back problems, denies sciatica, denies knee/foot trouble, denies arthritis, or denies gout. When was patient's last Mammogram screening? N/A Last Colonoscopy: 2014 Snow Dunn RN documented in this encounter [facility] 04-11-2023 Note HNO ID: [id number] Author: Sreekanth Richardson APRN.ROGER Service: ? Author Type: Nurse Practitioner Type: Progress Notes Filed: 04/11/2023 1:59 PM Note Text: Chief Complaint Patient presents with: Follow Up For: C-DIFF AND bumps on rectum x 4 days HPI Narinder Sapp is a 63 year old male who presents here today for Above Complaints Patient is here for above complaint. Recently diagnosed with C. difficile. Stool sample came back last night. He this is his second episode of C. difficile within the last 2 months. Initially treated with vancomycin. This morning I did call in a vancomycin taper dose for him to start. No fevers or chills. No abdominal pain. Lack of appetite. He also has a complaints of rectal discomfort. Noting some type of bumps . Painful. Trying to use Preparation H at home. Have been present for approximately 4 days. Past medical history, appointments, medications, allergies reviewed. EXAM: BP 130/80 Pulse 61 Temp 37.1 ?C (98.8 ?F) (Left Tympanic) Resp 20 Wt 135.1 kg (297 lb 12.8 oz) SpO2 96% BMI 40.34 kg/m? General Appearance: Well appearing, alert, in no acute distress, well-hydrated, well nourished.. Heart: RRR without murmur, gallop, or rubs. No ectopy. Abdomen: Normal abdominal exam, Abdomen soft, non-tender. Bowel sounds normal. No masses, organomegaly. Rectal: Positive findings: There is an approximate dime size, tender, red external hemorrhoid with surrounding area being erythematous ASSESSMENT/PLAN: 1. Recurrent Clostridioides difficile diarrhea - ICD9: 008.45, ICD10: A04.71 (primary diagnosis) -Start vancomycin as prescribed. 2. External hemorrhoid - ICD9: 455.3, ICD10: K64.4 -At this point the external hemorrhoid does not look thrombosed. We will refer to general surgery for next week, can cancel if improving. Over the weekend can use sitz bath, Anusol with lidocaine, witch macarena as needed. - CONSULT TO GENERAL SURGERY Sreekanth Richardson APRN.SUPERVISORY INVESTIGATIVE SPECIALIST This note was partly generated using PersonSpot voice recognition dictation and may contain some misspelled or inaccurate words missed on review. [facility] 04-11-2023 History of Presen t illness Narrative Chief Complaint Patient presents with: Follow Up For: C-DIFF & bumps on rectum x 4 days HPI Narinder Sapp is a 63 year old male who presents here today for Above Complaints Patient is here for above complaint. Recently diagnosed with C. difficile. Stool sample came back last night. He this is his second episode of C. difficile within the last 2 months. Initially treated with vancomycin. This morning I did call in a vancomycin taper dose for him to start. No fevers or chills. No abdominal pain. Lack of appetite. He also has a complaints of rectal discomfort. Noting some type of bumps . Painful. Trying to use Preparation H at home. Have been present for approximately 4 days. Past medical history, appointments, medications, allergies reviewed. EXAM: BP 130/80 Pulse 61 Temp 37.1 C (98.8 F) (Left Tympanic) Resp 20 Wt 135.1 kg (297 lb 12.8 oz) SpO2 96% BMI 40.34 kg/m General Appearance: Well appearing, alert, in no acute distress, well-hydrated, well nourished.. Heart: RRR without murmur, gallop, or rubs. No ectopy. Abdomen: Normal abdominal exam, Abdomen soft, non-tender. Bowel sounds normal. No masses, organomegaly. Rectal: Positive findings: There is an approximate dime size, tender, red external hemorrhoid with surrounding area being erythematous ASSESSMENT/PLAN: 1. Recurrent Clostridioides difficile diarrhea - ICD9: 008.45, ICD10: A04.71 (primary diagnosis) -Start vancomycin as prescribed. 2. External hemorrhoid - ICD9: 455.3, ICD10: K64.4 -At this point the external hemorrhoid does not look thrombosed. We will refer to general surgery for next week, can cancel if improving. Over the weekend can use sitz bath, Anusol with lidocaine, witch macarena as needed. - CONSULT TO GENERAL SURGERY Sreekanth Richardson APRN.ROGER This note was partly generated using PersonSpot voice recognition dictation and may contain some misspelled or inaccurate words missed on review. documented in this encounter [facility] 03-18-2023 Note HNO ID: [id number] Author: Sreekanth Richardson APRN.CNP Service: ? Author Type: Nurse Practitioner Type: Progress Notes Filed: 03/18/2023 1:38 PM Note Text: Chief Complaint Patient presents with: ER F/U: WC 03/13; C.DIFF AND SOB HPI Narinder Sapp is a 63 year old male who presents here today for ER Follow Up. Patient here for emergency room follow-up. Patient was also in my office 1 month ago with having follow-up from fall at work that occurred and suffered broken ribs. Following with the now clinic for Worker's Compensation for this. Developed pneumonia and was given antibiotics. Was having difficulty breathing, shortness of breath. 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 Pleural effusion present. Ejection fraction on echocardiogram was 40%. Lasix was doubled for a few days per cardiology, then returned to 20 mg daily. He has follow up in April with cardiology. Down 8 pounds since our last visit. Overall, he believes that since our last visit, his shortness of breath is improved but still present. Then on March 13, went to the emergency room for diarrhea, SOB Diagnosed with C. difficile. Given oral vancomycin for treatment. EKG showed ventricular paced rhythm, normal intervals, no STEMI. CT of the patient's abdomen pelvis ruled out any perforation or obstruction. Labs did not have any significant abnormalities. X-ray of the chest did not show any evidence of pneumonia. No fevers or chills. Nothing over 99F. At this time, he is having about 5-6 of diarrhea. No more emesis. Mild nausea. BNP was normal. GRF preserved. K +4.3. Requesting refill of gabapentin that he uses for neuropathy and RLS. Starting to develop neuropathy in his bilateral hands. Past medical history, appointments, medications, allergies reviewed. EXAM: BP 124/77 Pulse 60 Temp 37.1 ?C (98.8 ?F) (Left Tympanic) Resp 24 Wt (!) 137.9 kg (304 lb) SpO2 97% BMI 41.18 kg/m? General Appearance: Well appearing, alert, in no acute distress, well-hydrated, well nourished. and Obese. Lungs: Lungs clear to auscultation. No wheezing, rhonchi, rales.. Heart: RRR without murmur, gallop, or rubs. No ectopy. Extremities: Pulses: 2+, Edema: +1 pitting edema bilaterally in lower extremities ASSESSMENT/PLAN: 1. C. difficile diarrhea - ICD9: 008.45, ICD10: A04.72 (primary) -New diagnosis. Less than 1 week of treatment with some symptom improvement. Continue vancomycin as prescribed. Avoid use of antidiarrheals, plenty of fluids, probiotic or activity a yogurt recommended. Plenty of rest. 2. Restless leg syndrome - ICD9: 333.94, ICD10: G25.81 -Continue gabapentin - GABAPENTIN 300 MG CAPSULE 3. Controlled type 2 diabetes mellitus without complication, with long-term current use of insulin (HCC) - ICD9: 250.00, V58.67, ICD10: E11.9, Z79.4 -Reevaluate in 2 months with hemoglobin A1c - GABAPENTIN 300 MG CAPSULE 4. Bilateral leg edema - ICD9: 782.3, ICD10: R60.0 -Bilateral lower leg edema is improved but still present. Continue furosemide. Potassium 4.36 days ago in the emergency room. - FUROSEMIDE 20 MG TABLET 5. Atrial fibrillation, unspecified type (HCC) - ICD9: 427.31, ICD10: I48.91 -Follow with cardiology - FUROSEMIDE 20 MG TABLET 6. Nonischemic cardiomyopathy (HCC) - ICD9: 425.4, ICD10: I42.8 -Continue following with cardiology. Weight is stable. Breathing is improved. - FUROSEMIDE 20 MG TABLET Sreekanth Richardson APRN.SUPERVISORY INVESTIGATIVE SPECIALIST RTO in 2 months, sooner if needed. This note was partly generated using [employer] voice recognition dictation and may contain some misspelled or inaccurate words missed on review. [facility] 03-13-2023 Miscellaneous Notes Spoke with patient. Given message from provider's office. Patient verbalizes understanding. Gloria Irizarry RN Office received Lantus through [employer], [employer] on 03/05/23. No documentation noted in pt chart. Office staff was out, was unaware this was received. Call to pt and LM on to return call. Also LM that office will be sending a [employer] message as well. Mandie Gongora Ma documented in this encounter [facility] 02-28-2023 Miscellaneous Notes Called and spoke with [employer] Carolee Koch. Ordered Lantus refill for shipment. This has been processed. Sent [employer] message to update him of this. Mandie Gongora Ma Kellen with [employer] calling and requests that pt's PCP Office contact [employer], the colorman for patient's Lantus, to place refill order. Call [employer] at [phone] order. Thank you. documented in this encounter [facility] 02-20-2023 Miscellaneous Notes Checked office where pt assistance medications are located, nothing received at this time. Call to pt and notified him of this. Pt asked where does he get medication from, notified this comes from [employer]. He will be contacting them as he's out of his medication. Mandie Gongora Ma Patient calling and reports he gets his Lantus medication delivered to Dr. Smiley's office and is calling to ask if it has arrived. PCP office is out today. Other office nurse attempted to check on status-states no Lantus seen in office. Please contact patient with any updates. Thank you. documented in this encounter [facility] 02-12-2023 Miscellaneous Notes Great. I will review on Friday when I get back to offie. Sreekanth Richardson APRN.ROGER Pt called and is notified of providers results and instructions. Pt voices understanding. Pts states he saw the [facility] this morning and he has an Echo scheduled for tomorrow afternoon. He states he had labs drawn today as well. Called and [facility] is going to fax over Pts report from today to fax # [phone]. Kylie Zee, RN Please let the patient know that his Hgb A1c has improved to 7.4%. Glucose at the time of testing was 124. No changes to medication. I placed labs to repeat in 3 months. Ca we ask the patient when his cardiology appointment is and relay answer back to me? Sreekanth Richardson APRN.SUPERVISORY INVESTIGATIVE SPECIALIST Electronically signed by Sreekanth Richardson APRN.SUPERVISORY INVESTIGATIVE SPECIALIST at 02/12/2023 9:31 AM EDT documented in this encounter [facility] 02-11-2023 Note HNO ID: [id number] Author: Sreekanth Richardson APRN.SUPERVISORY INVESTIGATIVE SPECIALIST Service: ? Author Type: Nurse Practitioner Type: Progress Notes Filed: 02/11/2023 11:12 AM Note Text: Chief Complaint Patient presents with: ER F/U: [facility] 02/05/23; Fall-Multiple rib fracture, left AND right elbow contusion, pleural effusion AND left lower lobe pnuemonia HPI Narinder Sapp is a 63 year old male who presents here today for ER Follow Up. Patient here for routine follow-up. Patient also following up for emergency room visit to [facility]. Went on February 05. Had a fall on 02/01 at work. Suffered multiple rib fractures ( 3 ribs), left and right elbow contusion, findings of pleural effusion and left lower lobe pneumonia. Was given doxy and [place] for these findings. Following with [facility] for works comp. Blood work is in process for diabetes. BGs are doing good, he is having nothing over 140. Tolerating without side effects. He does mention some bilateral leg swelling for 2 days. He does mention some shortness of breath, but not if related ribs. No cough. Some dizziness. Noticed that his pulse today is 60. Mentioning that his pacemaker is set at 72. Without chest pain. Follows with cardiology in [place]. Past medical history, appointments, medications, allergies reviewed. EXAM: BP 132/80 Pulse 60 Temp 36.5 ?C (97.7 ?F) (Oral) Resp 20 Wt (!) 141.8 kg (312 lb 9.6 oz) SpO2 95% BMI 42.34 kg/m? General Appearance: Well appearing, alert, in no acute distress, well-hydrated, well nourished. and Obese. Lungs: Diminished right lower and left lower lobes posteriorly. No wheezing.. Heart: RRR without murmur, gallop, or rubs. No ectopy. Extremities: +2 pitting edema bilaterally ranging from the top of the foot to the mid tib/fib.. ASSESSMENT/PLAN: 1. Controlled type 2 diabetes mellitus without complication, without long-term current use of insulin (HCC) - ICD9: 250.00, ICD10: E11.9 (primary diagnosis) -Patient's home blood glucose monitoring has been well controlled. He is tolerating Trulicity. Labs are in process at this time. Likely will continue with current medications. We will update with results. 2. Anxiety and depression - ICD9: 300.00, 311, ICD10: F41.9, F32.A -Stable continue Zoloft as prescribed. 3. Atrial fibrillation, unspecified type (HCC) - ICD9: 427.31, ICD10: I48.91 - ECHO - PERFLUTREN LIPID MICROSPHERES 1.1 MG/ML INJECTION IN NS 10 ML - SODIUM CHLORIDE 0.9 % (FLUSH) INJECTION SYRINGE 4. Bilateral leg edema - ICD9: 782.3, ICD10: R60.0 -Unsure of etiology at this point. Has not had an echocardiogram in over 6 years. Follows with cardiology. Heart rate is lower than normal at this point. Has gained a small amount of weight. Start furosemide 20 mg daily, schedule echo, call immediately today to get back in with cardiology. - ECHO - PERFLUTREN LIPID MICROSPHERES 1.1 MG/ML INJECTION IN NS 10 ML - SODIUM CHLORIDE 0.9 % (FLUSH) INJECTION SYRINGE - FUROSEMIDE 20 MG TABLET 5. Abnormal heart rate - ICD9: 785.3, ICD10: R00.9 -Follow-up with cardiology, patient will call today. Heart rate currently 60 when pacemaker is set at 70. 6. Closed fracture of multiple ribs of left side with routine healing, subsequent encounter - ICD9: V54.19, ICD10: S22.42XD Continue following with no clinic 7. Pneumonia of lower lobe due to infectious organism, unspecified laterality - ICD9: 486, ICD10: J18.9 -[facility] Sreekanth Richardson APRN.CNP RTO in 1 months, sooner if needed. This note was partly generated using [employer] voice recognition dictation and may contain some misspelled or inaccurate words missed on review. [facility] 02-11-2023 Instructions Sreekanth Richardson APRN.CNP - 02/11/2023 11:00 AM EDT Continue with plan to return to [facility] tomorrow Call Cardiology. Schedule echo. Start Lasix (take in the morning). If you get into cardiology prior to echo, then cancel echo. I will call with blood work results. Come back in 1 month to follow up. Sreekanth Richardson APRN.CNP documented in this encounter [facility] 02-11-2023 History of Presen t illness Narrative Chief Complaint Patient presents with: ER F/U: [facility] 02/05/23; Fall-Multiple rib fracture, left & right elbow contusion, pleural effusion & left lower lobe pnuemonia HPI Narinder Sapp is a 63 year old male who presents here today for ER Follow Up. Patient here for routine follow-up. Patient also following up for emergency room visit to [facility]. Went on February 05. Had a fall on 02/01 at work. Suffered multiple rib fractures ( 3 ribs), left and right elbow contusion, findings of pleural effusion and left lower lobe pneumonia. Was given doxy and [place] for these findings. Following with [facility] for works comp. Blood work is in process for diabetes. BGs are doing good, he is having nothing over 140. Tolerating without side effects. He does mention some bilateral leg swelling for 2 days. He does mention some shortness of breath, but not if related ribs. No cough. Some dizziness. Noticed that his pulse today is 60. Mentioning that his pacemaker is set at 72. Without chest pain. Follows with cardiology in [place]. Past medical history, appointments, medications, allergies reviewed. EXAM: BP 132/80 Pulse 60 Temp 36.5 C (97.7 F) (Oral) Resp 20 Wt (!) 141.8 kg (312 lb 9.6 oz) SpO2 95% BMI 42.34 kg/m General Appearance: Well appearing, alert, in no acute distress, well-hydrated, well nourished. and Obese. Lungs: Diminished right lower and left lower lobes posteriorly. No wheezing.. Heart: RRR without murmur, gallop, or rubs. No ectopy. Extremities: +2 pitting edema bilaterally ranging from the top of the foot to the mid tib/fib.. ASSESSMENT/PLAN: 1. Controlled type 2 diabetes mellitus without complication, without long-term current use of insulin (HCC) - ICD9: 250.00, ICD10: E11.9 (primary diagnosis) -Patient's home blood glucose monitoring has been well controlled. He is tolerating Trulicity. Labs are in process at this time. Likely will continue with current medications. We will update with results. 2. Anxiety and depression - ICD9: 300.00, 311, ICD10: F41.9, F32.A -Stable continue Zoloft as prescribed. 3. Atrial fibrillation, unspecified type (HCC) - ICD9: 427.31, ICD10: I48.91 - ECHO - PERFLUTREN LIPID MICROSPHERES 1.1 MG/ML INJECTION IN NS 10 ML - SODIUM CHLORIDE 0.9 % (FLUSH) INJECTION SYRINGE 4. Bilateral leg edema - ICD9: 782.3, ICD10: R60.0 -Unsure of etiology at this point. Has not had an echocardiogram in over 6 years. Follows with cardiology. Heart rate is lower than normal at this point. Has gained a small amount of weight. Start furosemide 20 mg daily, schedule echo, call immediately today to get back in with cardiology. - ECHO - PERFLUTREN LIPID MICROSPHERES 1.1 MG/ML INJECTION IN NS 10 ML - SODIUM CHLORIDE 0.9 % (FLUSH) INJECTION SYRINGE - FUROSEMIDE 20 MG TABLET 5. Abnormal heart rate - ICD9: 785.3, ICD10: R00.9 -Follow-up with cardiology, patient will call today. Heart rate currently 60 when pacemaker is set at 70. 6. Closed fracture of multiple ribs of left side with routine healing, subsequent encounter - ICD9: V54.19, ICD10: S22.42XD Continue following with no clinic 7. Pneumonia of lower lobe due to infectious organism, unspecified laterality - ICD9: 486, ICD10: J18.9 -[facility] Sreekanth Richardson APRN.CNP RTO in 1 months, sooner if needed. This note was partly generated using [employer] voice recognition dictation and may contain some misspelled or inaccurate words missed on review. documented in this encounter [facility] 02-06-2023 Miscellaneous Notes The following approved medication requests have been transmitted electronically. Requested Prescriptions Pending Prescriptions Disp Refills insulin needles, DISPOSABLE, (UNIFINE PENTIPS) 31 gauge x 5/16 [Pharmacy Med Name: Unifine Pentips 31 gauge x 5/16 needle] 100 Each 11 Sig: Use one pen needle 4 times/day with insulin Sreekanth Richardson APRN.CNP Patient phones requesting refills as follows: Requested Prescriptions Pending Prescriptions Disp Refills insulin needles, DISPOSABLE, (UNIFINE PENTIPS) 31 gauge x 5/16 [Pharmacy Med Name: Unifine Pentips 31 gauge x 5/16 needle] 100 Each 11 Sig: Use one pen needle 4 times/day with insulin JAREK-11/12/22 Labs-11/11/22 NOV-02/11/23 Please review and advise. Abbie Olivier LPN documented in this encounter [facility] 11-12-2022 Note HNO ID: [id number] Author: Sreekanth Richardson APRN.CNP Service: ? Author Type: Nurse Practitioner Type: Progress Notes Filed: 11/12/2022 1:52 PM Note Text: Chief Complaint Patient presents with: Follow Up: PNE AND DM HPI Narinder Sapp is a 62 year old male who presents here today for Chronic Medical Conditions. Follow up from recent pneumonia and chronic diseases, including RLS, DM, HTN, HLP, A-fib. Following with cardiology for A-fib. Taking his medications as prescribed. No chest pain, shortness of breath or syncope. Does admit ongoing dizziness that has been ongoing for many months. Has been losing weight on Trulicity. Down 45 pounds. Blood pressure is borderline low today at 108/62. Patient is prescribed carvedilol 6.25 mg twice a day. Prescriber cardiology. Diabetes: Hgb A1c improved from 8.7 to 8.0%. Home BG readings are 120-150. Seldom over 160. Recently had CAP. Repeat xray yesterday of the chest shows resolution of CAP. Patient is doing okay. Still admits to some ongoing fatigue. Past medical history, appointments, medications, allergies reviewed. EXAM: BP 108/62 (BP Site: Left Arm, BP Position: Standing, BP Cuff Size: Large Adult) Pulse 61 Resp 18 Wt 136.1 kg (300 lb) SpO2 95% BMI 40.63 kg/m? General Appearance: Well appearing, alert, in no acute distress, well-hydrated, well nourished.. Head: Normocephalic, no masses, lesions, tenderness or abnormalities. Eyes: Anicteric sclera. Pupils are equally round and reactive to light. Extraocular movements are intact. . Lungs: Lungs clear to auscultation. No wheezing, rhonchi, rales.. Heart: RRR without murmur, gallop, or rubs. No ectopy. Extremities: No deformities, edema Component Latest Ref Rng AND Units 11/11/2022 Protein, Total 6.3 - 8.0 g/dL 7.8 Albumin 3.9 - 4.9 g/dL 4.0 Calcium 8.5 - 10.2 mg/dL 9.5 Bilirubin, Total 0.2 - 1.3 mg/dL 0.8 Alkaline Phosphatase 38 - 113 U/L 91 AST 14 - 40 U/L 20 ALT 10 - 54 U/L 17 Glucose 74 - 99 mg/dL 139 (H) BUN 9 - 24 mg/dL 20 Creatinine 0.73 - 1.22 mg/dL 1.33 (H) Sodium 136 - 144 mmol/L 138 Potassium 3.7 - 5.1 mmol/L 4.8 Chloride 97 - 105 mmol/L 105 CO2 22 - 30 mmol/L 20 (L) Anion Gap 9 - 18 mmol/L 13 eGFR >=60 mL/min/1.73mA? 60 Cholesterol, Total <200 mg/dL 128 Triglyceride <150 mg/dL 127 HDL Cholesterol >39 mg/dL 48 Non HDL Cholesterol <130 mg/dL 80 Fasting Time hrs 12 VLDL Cholesterol <30 mg/dL 25 TC:HDL Ratio <5.10 2.67 LDL Cholesterol <100 mg/dL 55 LDL:HDL Ratio <2.54 1.15 Hemoglobin A1C 4.3 - 5.6 % 8.0 (H) Estimated Average Glucose mg/dL 183 Impression IMPRESSION: No acute radiographic abnormality. Cardiomegaly Dental Mechanic: ANY Transcribe Date/Time: Nov 11 2022 2:12P Dictated by : HEATHER GAR MD This examination was interpreted and the report reviewed and electronically signed by: HEATHER GAR MD on Nov 11 2022 2:13PM EST Results-Findings * * *Final Report* * * DATE OF EXAM: Nov 11 2022 9:45AM WOX 5291 - XR CHEST 2V FRONTAL/LAT / PROCEDURE REASON: Community acquired pneumonia, unspecified laterality * * * * Physician Interpretation * * * * EXAMINATION: CHEST RADIOGRAPH (2 VIEW FRONTAL AND LATERAL) CLINICAL HISTORY: Community acquired pneumonia, unspecified laterality MQ: XC2_6 EXAM DATE/TIME: 11/11/2022 9:45 AM COMPARISON: 03/23/2015 RESULT: Lines, tubes, and devices: Right cardiac pacer and leads is unchanged. Lungs and pleura: No consolidation. No lung mass. No pleural effusion. No pneumothorax. Cardiomediastinal silhouette: Stable mildly enlarged cardiomediastinal silhouette. Calcified nodes are consistent with remote granulomatous disease Bones and soft tissues: Unremarkable. ASSESSMENT/PLAN: 1. Controlled type 2 diabetes mellitus without complication, without long-term current use of insulin (HCC) - ICD9: 250.00, ICD10: E11.9 (primary diagnosis) - Controlled - Continue current medications - COMP METABOLIC PANEL - HGB A1C 2. Anxiety and depression - ICD9: 300.00, 311, ICD10: F41.9, F32.A - Stable, continue Zoloft 3. Restless leg syndrome - ICD9: 333.94, ICD10: G25.81 -Continue Requip 4. Community acquired pneumonia, unspecified laterality - ICD9: 486, ICD10: J18.9 -Resolved, discussed that fatigue will take some time to improve. 5. Atrial fibrillation, unspecified type (HCC) - ICD9: 427.31, ICD10: I48.91 -See phone with cardiology 6. Mixed hyperlipidemia - ICD9: 272.2, ICD10: E78.2 - good control - Continue current medication. - Encouraged following a low fat, low cholesterol diet. - Discussed the benefits of regular aerobic exercise and weight loss. - COMP METABOLIC PANEL 7. Essential hypertension - ICD9: 401.9, ICD10: I10 - good control - Decrease carvedilol to 3.125 mg twice daily due to ongoing dizziness. Updated global commodity manager on this change. - Recommended regular aerobic exercise. - Recommend home blood pressure monitoring, to b (more content not included)... [facility] 11-12-2022 History of Presen t illness Narrative Chief Complaint Patient presents with: Follow Up: PNE & DM HPI Narinder Sapp is a 62 year old male who presents here today for Chronic Medical Conditions. Follow up from recent pneumonia and chronic diseases, including RLS, DM, HTN, HLP, A-fib. Following with cardiology for A-fib. Taking his medications as prescribed. No chest pain, shortness of breath or syncope. Does admit ongoing dizziness that has been ongoing for many months. Has been losing weight on Trulicity. Down 45 pounds. Blood pressure is borderline low today at 108/62. Patient is prescribed carvedilol 6.25 mg twice a day. Prescriber cardiology. Diabetes: Hgb A1c improved from 8.7 to 8.0%. Home BG readings are 120-150. Seldom over 160. Recently had CAP. Repeat xray yesterday of the chest shows resolution of CAP. Patient is doing okay. Still admits to some ongoing fatigue. Past medical history, appointments, medications, allergies reviewed. EXAM: BP 108/62 (BP Site: Left Arm, BP Position: Standing, BP Cuff Size: Large Adult) Pulse 61 Resp 18 Wt 136.1 kg (300 lb) SpO2 95% BMI 40.63 kg/m General Appearance: Well appearing, alert, in no acute distress, well-hydrated, well nourished.. Head: Normocephalic, no masses, lesions, tenderness or abnormalities. Eyes: Anicteric sclera. Pupils are equally round and reactive to light. Extraocular movements are intact. . Lungs: Lungs clear to auscultation. No wheezing, rhonchi, rales.. Heart: RRR without murmur, gallop, or rubs. No ectopy. Extremities: No deformities, edema Component Latest Ref Rng & Units 11/11/2022 Protein, Total 6.3 - 8.0 g/dL 7.8 Albumin 3.9 - 4.9 g/dL 4.0 Calcium 8.5 - 10.2 mg/dL 9.5 Bilirubin, Total 0.2 - 1.3 mg/dL 0.8 Alkaline Phosphatase 38 - 113 U/L 91 AST 14 - 40 U/L 20 ALT 10 - 54 U/L 17 Glucose 74 - 99 mg/dL 139 (H) BUN 9 - 24 mg/dL 20 Creatinine 0.73 - 1.22 mg/dL 1.33 (H) Sodium 136 - 144 mmol/L 138 Potassium 3.7 - 5.1 mmol/L 4.8 Chloride 97 - 105 mmol/L 105 CO2 22 - 30 mmol/L 20 (L) Anion Gap 9 - 18 mmol/L 13 eGFR >=60 mL/min/1.73m 60 Cholesterol, Total <200 mg/dL 128 Triglyceride <150 mg/dL 127 HDL Cholesterol >39 mg/dL 48 Non HDL Cholesterol <130 mg/dL 80 Fasting Time hrs 12 VLDL Cholesterol <30 mg/dL 25 TC:HDL Ratio <5.10 2.67 LDL Cholesterol <100 mg/dL 55 LDL:HDL Ratio <2.54 1.15 Hemoglobin A1C 4.3 - 5.6 % 8.0 (H) Estimated Average Glucose mg/dL 183 Impression IMPRESSION: No acute radiographic abnormality. Cardiomegaly Dental Mechanic: ANY Transcribe Date/Time: Nov 11 2022 2:12P Dictated by : HEATHER GAR MD This examination was interpreted and the report reviewed and electronically signed by: HEATHER GAR MD on Nov 11 2022 2:13PM EST Results-Findings * * *Final Report* * * DATE OF EXAM: Nov 11 2022 9:45AM WOX 5291 - XR CHEST 2V FRONTAL/LAT / PROCEDURE REASON: Community acquired pneumonia, unspecified laterality * * * * Physician Interpretation * * * * EXAMINATION: CHEST RADIOGRAPH (2 VIEW FRONTAL & LATERAL) CLINICAL HISTORY: Community acquired pneumonia, unspecified laterality MQ: XC2_6 EXAM DATE/TIME: 11/11/2022 9:45 AM COMPARISON: 03/23/2015 RESULT: Lines, tubes, and devices: Right cardiac pacer and leads is unchanged. Lungs and pleura: No consolidation. No lung mass. No pleural effusion. No pneumothorax. Cardiomediastinal silhouette: Stable mildly enlarged cardiomediastinal silhouette. Calcified nodes are consistent with remote granulomatous disease Bones and soft tissues: Unremarkable. ASSESSMENT/PLAN: 1. Controlled type 2 diabetes mellitus without complication, without long-term current use of insulin (HCC) - ICD9: 250.00, ICD10: E11.9 (primary diagnosis) - Controlled - Continue current medications - COMP METABOLIC PANEL - HGB A1C 2. Anxiety and depression - ICD9: 300.00, 311, ICD10: F41.9, F32.A - Stable, continue Zoloft 3. Restless leg syndrome - ICD9: 333.94, ICD10: G25.81 -Continue Requip 4. Community acquired pneumonia, unspecified laterality - ICD9: 486, ICD10: J18.9 -Resolved, discussed that fatigue will take some time to improve. 5. Atrial fibrillation, unspecified type (HCC) - ICD9: 427.31, ICD10: I48.91 -See phone with cardiology 6. Mixed hyperlipidemia - ICD9: 272.2, ICD10: E78.2 - good control - Continue current medication. - Encouraged following a low fat, low cholesterol diet. - Discussed the benefits of regular aerobic exercise and weight loss. - COMP METABOLIC PANEL 7. Essential hypertension - ICD9: 401.9, ICD10: I10 - good control - Decrease carvedilol to 3.125 mg twice daily due to ongoing dizziness. Updated global commodity manager on this change. - Recommended regular aerobic exercise. - Recommend home blood pressure monitoring, to bring results in on next visit - Goal of BP <130/80 - HGB A1C - CARVEDILOL 3.125 MG TABLET 8. Screening for colon cancer - ICD9: V76.51, ICD10: Z12.11 - FECAL OCCULT BLOOD TEST 9. Lightheadedness - ICD9: 780.4, ICD10: R42 -Ongoing for many months, has lost approximately 45 pounds. Blood pressure is on lower side today. Encouraged adequate hydration, we will reduce his carvedilol by 50%. Sreekanth Richardson APRN.CNP RTO in 3 months, sooner if needed. This note was partly generated using [employer] voice recognition dictation and may contain some misspelled or inaccurate words missed on review. documented in this encounter [facility] 11-11-2022 Note HNO ID: [id number] Author: RT Komal(R) Service: Radiology Author Type: Technologist Type: Progress Notes Filed: 11/11/2022 9:45 AM Note Text: Radiology Service Progress Note PATIENT NAME: Narinder Sapp DATE OF SERVICE: November 11, 2022 TIME: 9:40 AM PATIENT IDENTITY VERIFICATION COMPLETED USING TWO (2) IDENTIFIERS: Name and Date of confirmed by patient verbally. FALL SCREENING: Has the patient had 2 falls in the last year or 1 fall with injury or currently using an Ambulatory Assistive Device (Walker, Cane, Wheelchair, Crutches, etc.)? No PATIENT GENDER DATA: Male PATIENT RELEVANT IMPLANT DATA REVIEWED: Yes RADIOLOGY DEPARTMENT: General X-ray: Exam(s) Completed: Chest X-Ray PERIPHERAL IV DATA: Not applicable SIGNED BY: RT Komal(R) November 11, 2022 9:40 AM [facility] 10-22-2022 Note HNO ID: [id number] Author: Sreekanth Richardson APRN.CNP Service: ? Author Type: Nurse Practitioner Type: Progress Notes Filed: 10/22/2022 2:21 PM Note Text: Chief Complaint Patient presents with: ER F/U: [facility] 10/18/22-; DX: pneumonia HPI Narinder Sapp is a 62 year old male who presents here today for ER Follow Up. follow up for pneumonia. HOSPITAL/ER FOLLOW UP: Reason for visit: Shortness of breath. Went to [facility], sent to [facility] for evaluation Which facility: [facility] Date of visit: 10/17/2022 Diagnosis: Bilateral Pneumonia Testing done: CTA of chest (revealed bilateral lower lobe pneumonia); CBC, Troponins (unremarkable), BMP (stable, unchanged), D-Dimer was elevated. EKG was SR. Treatment given: Given Duoneb treatment, IV fluids, Discharged on oral antibiotics (Azithromycin zpak regimen) Current symptoms: At this time, the patient states that at this time, he continues to have a cough. Feels like it is no better. Feels weak. Cough keeping him up at night at times. No chest pain or passing out. He did develop eye discharge, matting of both eyes after the hospital. Difficult to open. Overdue for labs, routine follow up. INR was 2.5 on 10/10. Checks at home. Past medical history, appointments, medications, allergies reviewed. EXAM: BP 126/72 Pulse 60 Temp 37.4 ?C (99.4 ?F) (Left Tympanic) Resp 28 Wt (!) 141.1 kg (311 lb) SpO2 95% BMI 42.12 kg/m? General Appearance: Well appearing, alert, in no acute distress, well-hydrated, well nourished. and Obese. Eyes: Sclera is reddened, yellow goopy discharge present around eye and on eye lids, eye lashes to both eyes. Neck: Supple, no adenopathy Lungs: Positive findings: rhonchi RLL, RML Cough. Heart: RRR without murmur, gallop, or rubs. No ectopy. ASSESSMENT/PLAN: 1. Community acquired pneumonia, unspecified laterality - ICD9: 486, ICD10: J18.9 (primary diagnosis) -No improvement. Penicillin allergy. Likely should have been treated with dual antibiotics. Give Levaquin 500 mg daily for 5 days. Discussed expectation of having a cough that will slowly resolve over the next 4 to 6 weeks. Given that he is on Coumadin. He will check INR at home in the next few days. Cardiology is managing his Coumadin dosing - XR CHEST 2V FRONTAL/LAT - LEVOFLOXACIN 500 MG TABLET 2. Other conjunctivitis of both eyes - ICD9: 372.39, ICD10: H10.89 Bacterial - see medication orders - course and contagiousness issues discussed, including hand washing. - Instructed to call if high fever, development of periorbital redness or swelling, eye pain, visual changes, concerns or if symptoms persist. - ERYTHROMYCIN 5 MG/GRAM (0.5 %) EYE OINTMENT Sreekanth Richardson APRN.SUPERVISORY INVESTIGATIVE SPECIALIST RTO in 1 months, sooner if needed. Get x-ray and blood work related to diabetes prior to encounter. This note was partly generated using [employer] voice recognition dictation and may contain some misspelled or inaccurate words missed on review. [facility] 10-22-2022 History of Presen t illness Narrative Chief Complaint Patient presents with: ER F/U: [facility] 10/18/22-; DX: pneumonia HPI Narinder Sapp is a 62 year old male who presents here today for ER Follow Up. follow up for pneumonia. HOSPITAL/ER FOLLOW UP: Reason for visit: Shortness of breath. Went to [facility], sent to [facility] for evaluation Which facility: [facility] Date of visit: 10/17/2022 Diagnosis: Bilateral Pneumonia Testing done: CTA of chest (revealed bilateral lower lobe pneumonia); CBC, Troponins (unremarkable), BMP (stable, unchanged), D-Dimer was elevated. EKG was SR. Treatment given: Given Duoneb treatment, IV fluids, Discharged on oral antibiotics (Azithromycin zpak regimen) Current symptoms: At this time, the patient states that at this time, he continues to have a cough. Feels like it is no better. Feels weak. Cough keeping him up at night at times. No chest pain or passing out. He did develop eye discharge, matting of both eyes after the hospital. Difficult to open. Overdue for labs, routine follow up. INR was 2.5 on 10/10. Checks at home. Past medical history, appointments, medications, allergies reviewed. EXAM: BP 126/72 Pulse 60 Temp 37.4 C (99.4 F) (Left Tympanic) Resp 28 Wt (!) 141.1 kg (311 lb) SpO2 95% BMI 42.12 kg/m General Appearance: Well appearing, alert, in no acute distress, well-hydrated, well nourished. and Obese. Eyes: Sclera is reddened, yellow goopy discharge present around eye and on eye lids, eye lashes to both eyes. Neck: Supple, no adenopathy Lungs: Positive findings: rhonchi RLL, RML Cough. Heart: RRR without murmur, gallop, or rubs. No ectopy. ASSESSMENT/PLAN: 1. Community acquired pneumonia, unspecified laterality - ICD9: 486, ICD10: J18.9 (primary diagnosis) -No improvement. Penicillin allergy. Likely should have been treated with dual antibiotics. Give Levaquin 500 mg daily for 5 days. Discussed expectation of having a cough that will slowly resolve over the next 4 to 6 weeks. Given that he is on Coumadin. He will check INR at home in the next few days. Cardiology is managing his Coumadin dosing - XR CHEST 2V FRONTAL/LAT - LEVOFLOXACIN 500 MG TABLET 2. Other conjunctivitis of both eyes - ICD9: 372.39, ICD10: H10.89 Bacterial - see medication orders - course and contagiousness issues discussed, including hand washing. - Instructed to call if high fever, development of periorbital redness or swelling, eye pain, visual changes, concerns or if symptoms persist. - ERYTHROMYCIN 5 MG/GRAM (0.5 %) EYE OINTMENT Sreekanth Richardson APRN.CNP RTO in 1 months, sooner if needed. Get x-ray and blood work related to diabetes prior to encounter. This note was partly generated using [employer] voice recognition dictation and may contain some misspelled or inaccurate words missed on review. documented in this encounter [facility] 10-22-2022 Instructions Sreekanth Richardson APRN.CNP - 10/22/2022 12:58 PM EDT Return in 1 month Get labs and xray of the chest prior to appointment, about 1-2 days prior. Orders are in. Apply eye ointment antibiotic for 7 days, 4 times day for conjunctivitis. Go to the ER if you develop worsening shortness of breath or chest pain. Expectations is that you might have a cough for the next 4-6 weeks that will go away slowly. Repeat INR on Friday. Sreekanth Richardson APRN.CNP documented in this encounter [facility] 10-17-2022 Note HNO ID: [id number] Author: Tremayne Ch MD Service: ? Author Type: Physician Type: Progress Notes Filed: 10/17/2022 6:45 PM Note Text: Patient presents with: Cough: Pt reported chest congestion, SOB x1 wk. HPI: Feeling short of breath and coughing for 7 days. He has gotten significantly more short of breath as the day goes on. Positive symptoms: productive Cough, Shortness of breath, Sinus pressure, Nasal Congestion, Rhinorrhea, Diarrhea, no change in palpitations, fatigue Negative symptoms: Fever, Vomiting, change in leg swelling PAST MEDICAL HISTORY Diagnosis Date Atrial fibrillation (HCC) Chronic anticoagulation Diabetes type 2, controlled (HCC) Hodgkin's disease, unspecified type, of lymph nodes of multiple sites 1989, 1994 had BMT - 1994 Melanoma (HCC) Morbid obesity (HCC) Other and unspecified hyperlipidemia Hyperlipidemia Retinal tear left Type II or unspecified type diabetes mellitus without mention of complication, uncontrolled Venous insufficiency (chronic) (peripheral) 12/12/2016 MEDICATIONS: Current Outpatient Medications Medication Sig rOPINIRole (REQUIP) 1 mg tablet Take 3-4 tablets by mouth daily at bedtime. Take 3-4 tablets nightly for restless legs gabapentin (NEURONTIN) 300 mg capsule Take 1 capsule by mouth daily at bedtime for 180 days. insulin lispro (HUMALOG KWIKPEN INSULIN) 100 unit/mL Inject 20 Units subcutaneously w MEALS. insulin glargine (LANTUS SOLOSTAR U-100 INSULIN) 100 unit/mL (3 mL) Inject 60 Units subcutaneously daily at bedtime. blood sugar diagnostic (ACCU-CHEK SMARTVIEW TEST STRIP) test strip 4Test blood sugar(s) 4 times daily. Dx: 250.02. Insulin: Yes metFORMIN ER (GLUCOPHAGE XR) 500 mg 24 hr tablet Take 1 tablet by mouth daily with breakfast. sertraline (ZOLOFT) 100 mg tablet Take 1 tablet by mouth once daily. insulin needles, DISPOSABLE, (PEN NEEDLE) 31 gauge x 5/16 Use one pen needle 4 times/day with insulin dulaglutide (TRULICITY) 3 mg/0.5 mL pen injector Inject 3 mg subcutaneously one time a week. apremilast (OTEZLA) 30 mg tablet Take 1 tablet by mouth twice daily. warfarin (COUMADIN) 3 mg tablet Take 1 tablet by mouth daily as directed. Take 4.5 mg M-F 3 mg Sat and Sun (Patient taking differently: Take 3 mg by mouth daily as directed. Take 4.5 mg M-Sat 3 mg Sun) carvedilol (COREG) 12.5 mg tablet Take 12.5 mg by mouth once daily. lovastatin 40 mg tablet Take one tablet daily. No current facility-administered medications for this visit. ALLERGIES: ALLERGIES Allergen Reactions Penicillin G Rash Sulfa (Sulfonamide * Unknown Patient cannot recall any interaction when questioned about this on 04/09/13 VITALS: BP 142/86 Pulse 60 Temp 36.6 ?C (97.9 ?F) (Tympanic) Resp 18 SpO2 96% PHYSICAL EXAM: GEN: mildly ill appearing, so drowsiness, unable to stand for scale because of weakness, accompanied by his HEENT: PERRL, EOMI, conjunctiva clear Ears: TMs without erythema, bulge, or effusion Sinuses: non-tender frontal sinus, non-tender maxillary sinuses Throat: moist mucous membranes, mild erythema, posterior pharyngeal hematomas, no exudate Neck: supple, no thyromegaly, no lymphadenopathy HEART: regular rate and rhythm, no murmurs LUNGS: bilateral wheezes and crackles, diminished right lower lung. increased WOB at rest and with conversation EXT: 1-2+ pitting edema ASSESSMENT/PLAN: 1. Acute cough - ICD9: 786.2, ICD10: R05.1 (primary diagnosis) 2. SOB (shortness of breath) - ICD9: 786.05, ICD10: R06.02 Suspect pneumonia, possible COVID or CHF. Vitals are stable, but clinically has signs of respiratory distress and lethargy. Referred to the ER for further evaluation. Report called to [facility] ER. Tremayne Ch MD [facility] 10-17-2022 History of Presen t illness Narrative Patient presents with: Cough: Pt reported chest congestion, SOB x1 wk. HPI: Feeling short of breath and coughing for 7 days. He has gotten significantly more short of breath as the day goes on. Positive symptoms: productive Cough, Shortness of breath, Sinus pressure, Nasal Congestion, Rhinorrhea, Diarrhea, no change in palpitations, fatigue Negative symptoms: Fever, Vomiting, change in leg swelling PAST MEDICAL HISTORY Diagnosis Date Atrial fibrillation (HCC) Chronic anticoagulation Diabetes type 2, controlled (HCC) Hodgkin's disease, unspecified type, of lymph nodes of multiple sites 1989, 1994 had BMT - 1994 Melanoma (HCC) Morbid obesity (HCC) Other and unspecified hyperlipidemia Hyperlipidemia Retinal tear left Type II or unspecified type diabetes mellitus without mention of complication, uncontrolled Venous insufficiency (chronic) (peripheral) 12/12/2016 MEDICATIONS: Current Outpatient Medications Medication Sig rOPINIRole (REQUIP) 1 mg tablet Take 3-4 tablets by mouth daily at bedtime. Take 3-4 tablets nightly for restless legs gabapentin (NEURONTIN) 300 mg capsule Take 1 capsule by mouth daily at bedtime for 180 days. insulin lispro (HUMALOG KWIKPEN INSULIN) 100 unit/mL Inject 20 Units subcutaneously w MEALS. insulin glargine (LANTUS SOLOSTAR U-100 INSULIN) 100 unit/mL (3 mL) Inject 60 Units subcutaneously daily at bedtime. blood sugar diagnostic (ACCU-CHEK SMARTVIEW TEST STRIP) test strip 4Test blood sugar(s) 4 times daily. Dx: 250.02. Insulin: Yes metFORMIN ER (GLUCOPHAGE XR) 500 mg 24 hr tablet Take 1 tablet by mouth daily with breakfast. sertraline (ZOLOFT) 100 mg tablet Take 1 tablet by mouth once daily. insulin needles, DISPOSABLE, (PEN NEEDLE) 31 gauge x 5/16 Use one pen needle 4 times/day with insulin dulaglutide (TRULICITY) 3 mg/0.5 mL pen injector Inject 3 mg subcutaneously one time a week. apremilast (OTEZLA) 30 mg tablet Take 1 tablet by mouth twice daily. warfarin (COUMADIN) 3 mg tablet Take 1 tablet by mouth daily as directed. Take 4.5 mg M-F 3 mg Sat and Sun (Patient taking differently: Take 3 mg by mouth daily as directed. Take 4.5 mg M-Sat 3 mg Sun) carvedilol (COREG) 12.5 mg tablet Take 12.5 mg by mouth once daily. lovastatin 40 mg tablet Take one tablet daily. No current facility-administered medications for this visit. ALLERGIES: ALLERGIES Allergen Reactions Penicillin G Rash Sulfa (Sulfonamide * Unknown Patient cannot recall any interaction when questioned about this on 04/09/13 VITALS: BP 142/86 Pulse 60 Temp 36.6 C (97.9 F) (Tympanic) Resp 18 SpO2 96% PHYSICAL EXAM: GEN: mildly ill appearing, so drowsiness, unable to stand for scale because of weakness, accompanied by his HEENT: PERRL, EOMI, conjunctiva clear Ears: TMs without erythema, bulge, or effusion Sinuses: non-tender frontal sinus, non-tender maxillary sinuses Throat: moist mucous membranes, mild erythema, posterior pharyngeal hematomas, no exudate Neck: supple, no thyromegaly, no lymphadenopathy HEART: regular rate and rhythm, no murmurs LUNGS: bilateral wheezes and crackles, diminished right lower lung. increased WOB at rest and with conversation EXT: 1-2+ pitting edema ASSESSMENT/PLAN: 1. Acute cough - ICD9: 786.2, ICD10: R05.1 (primary diagnosis) 2. SOB (shortness of breath) - ICD9: 786.05, ICD10: R06.02 Suspect pneumonia, possible COVID or CHF. Vitals are stable, but clinically has signs of respiratory distress and lethargy. Referred to the ER for further evaluation. Report called to [facility] ER. Tremayne Ch MD documented in this encounter [facility] 08-29-2022 Miscellaneous Notes Pt notified he can black pickler medications. [facility] [address] Chart Copy of medications dispensed to patient for home use August 29, 2022 Physician Initial: ME Narinder Sapp Medication: Lantus Insulin Solostar Qty: 3 boxes Directions: Inject 60 units daily at bedtime Medications administered, dispensed and verified on the date indicated above Patient has been notified to black pickler medication in 's office. (Medications in [facility] part of [place] [facility]) Yessi Wilkins Ma documented in this encounter [facility] 08-27-2022 Miscellaneous Notes Office has not received any medication recently. Last indigent med received May 2022. Pt notified. He states he contacted the Pt assistance company and was told that it should be here sometime this week. Yessi Wilkins Ma Pt called in and was asking if providers office had his Lantus in office for him to black pickler. Please call patient and update him. documented in this encounter [facility] 07-30-2022 Miscellaneous Notes Spoke with pt and information listed below given. Pt verbalizes understanding. Leidy Burgos LPN OK to refill as ordered Rob Smiley MD Patient phones requesting refills as follows: Requested Prescriptions Pending Prescriptions Disp Refills rOPINIRole (REQUIP) 1 mg tablet 120 tablet 11 Sig: Take 3-4 tablets by mouth daily at bedtime. Take 3-4 tablets nightly for restless legs JAREK-07/05/22 Labs-07/04/22 NOV-none med filled 08/09/21 Please review and advise. Abbie Olivier LPN documented in this encounter [facility] 07-05-2022 Note HNO ID: [id number] Author: Sreekanth Richardson APRN.SUPERVISORY INVESTIGATIVE SPECIALIST Service: ? Author Type: Nurse Practitioner Type: Progress Notes Filed: 07/05/2022 8:40 AM Note Text: Telemedicine Visit - Distance Health Virtual Visit Note Patient seen on Telephone platform. Location of patient: [place] Rob Smiley MD History of Present Illness Narinder Sapp is a 62 year old year old male who presents for diabetes follow up. DM: Reports overall feeling well. Hgb A1c increased from 8.0 to 8.7%. Biggest change is activity, which has gone down. Not as active. Taking 57 units of Lantus Taking 20 units of Humalog at meals (2 times daily, usually breakfast and dinner). Medication side effects: No. Home sugar checks: BGs, checking in fasting am. BG 170 this am. It is around 190 at times. Hypoglycemic spells: No. Watching diet: somewhat. Unexpected weight loss: No. Polyuria, polydipsia: No. Vision Changes: No. Foot lesions or numbness or pain: Yes. Chronic. On gabapentin. Continues to follow with podiatry in [place] for routine care. SURESH: Continues to use CPAP with benefit. A-fib: Continues to follow with [facility]. HYPERLIPIDEMIA: Patient is taking medications: Yes. Patient is watching diet: Yes. Patient denies myalgias: Yes. Patient denies gi upset: Yes RLS: Using Requip with benefit. PAST MEDICAL HISTORY Diagnosis Date Atrial fibrillation (HCC) Chronic anticoagulation Diabetes type 2, controlled (HCC) Hodgkin's disease, unspecified type, of lymph nodes of multiple sites 1989, 1994 had BMT - 1994 Melanoma (HCC) Morbid obesity (HCC) Other and unspecified hyperlipidemia Hyperlipidemia Retinal tear left Type II or unspecified type diabetes mellitus without mention of complication, uncontrolled Venous insufficiency (chronic) (peripheral) 12/12/2016 PAST SURGICAL HISTORY Procedure Laterality Date BIOPSY SOFT TISSUE NECK/CHEST BONE MARROW ASPIRATE AND BIOPSY COLSC FLX W/RMVL OF TUMOR POLYP LESION SNARE TQ 04/21/2015 EGD TRANSORAL BIOPSY SINGLE/MULTIPLE 04/21/2015 INSJ/RPLCMT PERM DFB W/TRNSVNS LDS 1/DUAL CHMBR 09/2014, 12/2014 ICD PAST SURGICAL HISTORY OF 09/2014, 12/2014 cardiac ablation x2 REMV CATARACT EXTRACAP,INSERT LENS Bilateral FAMILY HISTORY Problem Relation Age of Onset Heart Father [place] Social History Tobacco Use Smoking status: Never Smokeless tobacco: Never Substance Use Topics Alcohol use: No Alcohol/week: 1.7 standard drinks Current Outpatient Medications Medication Sig blood sugar diagnostic (ACCU-CHEK SMARTVIEW TEST STRIP) test strip 4Test blood sugar(s) 4 times daily. Dx: 250.02. Insulin: Yes metFORMIN ER (GLUCOPHAGE XR) 500 mg 24 hr tablet Take 1 tablet by mouth daily with breakfast. insulin glargine (LANTUS SOLOSTAR U-100 INSULIN) 100 unit/mL (3 mL) Inject 57 Units subcutaneously daily at bedtime. sertraline (ZOLOFT) 100 mg tablet Take 1 tablet by mouth once daily. insulin needles, DISPOSABLE, (PEN NEEDLE) 31 gauge x 5/16 Use one pen needle 4 times/day with insulin gabapentin (NEURONTIN) 300 mg capsule Take 1 capsule by mouth daily at bedtime for 180 days. dulaglutide (TRULICITY) 3 mg/0.5 mL pen injector Inject 3 mg subcutaneously one time a week. rOPINIRole (REQUIP) 1 mg tablet Take 3-4 tablets by mouth daily at bedtime. Take 3-4 tablets nightly for restless legs insulin lispro (HUMALOG KWIKPEN INSULIN) 100 unit/mL Inject 18 Units subcutaneously w MEALS. apremilast (OTEZLA) 30 mg tablet Take 1 tablet by mouth twice daily. warfarin (COUMADIN) 3 mg tablet Take 1 tablet by mouth daily as directed. Take 4.5 mg M-F 3 mg Sat and Sun (Patient taking differently: Take 3 mg by mouth daily as directed. Take 4.5 mg M-Sat 3 mg Sun) carvedilol (COREG) 12.5 mg tablet Take 12.5 mg by mouth once daily. lovastatin 40 mg tablet Take one tablet daily. No current facility-administered medications for this visit. ALLERGIES Allergen Reactions Penicillin G Rash Sulfa (Sulfonamide * Unknown Patient cannot recall any interaction when questioned about this on 04/09/13 Exam: None (telephone encounter) Component Latest Ref Rng AND Units 04/06/2022 07/04/2022 WBC 3.70 - 11.00 k/uL 7.68 RBC 4.20 - 6.00 m/uL 4.68 Hemoglobin 13.0 - 17.0 g/dL 13.7 Hematocrit 39.0 - 51.0 % 43.3 MCV 80.0 - 100.0 fL 92.5 MCH 26.0 - 34.0 pg 29.3 MCHC 30.5 - 36.0 g/dL 31.6 RDW-CV 11.5 - 15.0 % 12.7 Platelet Count 150 - 400 k/uL 149 (L) MPV 9.0 - 12.7 fL 11.9 Neut% % 66.7 Abs Neut (ANC) 1.45 - 7.50 k/uL 5.12 Lymph% % 21.7 Abs Lymph 1.00 - 4.00 k/uL 1.67 [place]% % 8.1 Abs [place] <0.87 k/uL 0.62 Eosin% % 2.6 Abs Eosin <0.46 k/uL 0.20 Baso% % 0.5 Abs Baso <0.11 k/uL 0.04 Immature Gran % % 0.4 IMMATURE GRANS (ABS) <0.10 k/uL 0.03 NRBC /100 WBC 0.0 Absolute nRBC <0.01 k/uL <0.01 DTYPE Auto Protein, Total 6.3 - 8.0 g/dL 6.8 7.3 Albumin 3.9 - 4.9 g/dL 3.8 (L) 4.0 Calcium 8.5 - 10.2 mg/dL 9.1 9.0 Bilirubin, Total 0.2 - 1.3 (more content not included)... [facility] 07-05-2022 History of Presen t illness Narrative Telemedicine Visit - Distance Health Virtual Visit Note Patient seen on Telephone platform. Location of patient: [place] Rob Smiley MD History of Present Illness Narinder Sapp is a 62 year old year old male who presents for diabetes follow up. DM: Reports overall feeling well. Hgb A1c increased from 8.0 to 8.7%. Biggest change is activity, which has gone down. Not as active. Taking 57 units of Lantus Taking 20 units of Humalog at meals (2 times daily, usually breakfast and dinner). Medication side effects: No. Home sugar checks: BGs, checking in fasting am. BG 170 this am. It is around 190 at times. Hypoglycemic spells: No. Watching diet: somewhat. Unexpected weight loss: No. Polyuria, polydipsia: No. Vision Changes: No. Foot lesions or numbness or pain: Yes. Chronic. On gabapentin. Continues to follow with podiatry in [place] for routine care. SURESH: Continues to use CPAP with benefit. A-fib: Continues to follow with [facility]. HYPERLIPIDEMIA: Patient is taking medications: Yes. Patient is watching diet: Yes. Patient denies myalgias: Yes. Patient denies gi upset: Yes RLS: Using Requip with benefit. PAST MEDICAL HISTORY Diagnosis Date Atrial fibrillation (HCC) Chronic anticoagulation Diabetes type 2, controlled (HCC) Hodgkin's disease, unspecified type, of lymph nodes of multiple sites 1989, 1994 had BMT - 1994 Melanoma (HCC) Morbid obesity (HCC) Other and unspecified hyperlipidemia Hyperlipidemia Retinal tear left Type II or unspecified type diabetes mellitus without mention of complication, uncontrolled Venous insufficiency (chronic) (peripheral) 12/12/2016 PAST SURGICAL HISTORY Procedure Laterality Date BIOPSY SOFT TISSUE NECK/CHEST BONE MARROW ASPIRATE & BIOPSY COLSC FLX W/RMVL OF TUMOR POLYP LESION SNARE TQ 04/21/2015 EGD TRANSORAL BIOPSY SINGLE/MULTIPLE 04/21/2015 INSJ/RPLCMT PERM DFB W/TRNSVNS LDS 1/DUAL CHMBR 09/2014, 12/2014 ICD PAST SURGICAL HISTORY OF 09/2014, 12/2014 cardiac ablation x2 REMV CATARACT EXTRACAP,INSERT LENS Bilateral FAMILY HISTORY Problem Relation Age of Onset Heart Father [place] Social History Tobacco Use Smoking status: Never Smokeless tobacco: Never Substance Use Topics Alcohol use: No Alcohol/week: 1.7 standard drinks Current Outpatient Medications Medication Sig blood sugar diagnostic (ACCU-CHEK SMARTVIEW TEST STRIP) test strip 4Test blood sugar(s) 4 times daily. Dx: 250.02. Insulin: Yes metFORMIN ER (GLUCOPHAGE XR) 500 mg 24 hr tablet Take 1 tablet by mouth daily with breakfast. insulin glargine (LANTUS SOLOSTAR U-100 INSULIN) 100 unit/mL (3 mL) Inject 57 Units subcutaneously daily at bedtime. sertraline (ZOLOFT) 100 mg tablet Take 1 tablet by mouth once daily. insulin needles, DISPOSABLE, (PEN NEEDLE) 31 gauge x 5/16 Use one pen needle 4 times/day with insulin gabapentin (NEURONTIN) 300 mg capsule Take 1 capsule by mouth daily at bedtime for 180 days. dulaglutide (TRULICITY) 3 mg/0.5 mL pen injector Inject 3 mg subcutaneously one time a week. rOPINIRole (REQUIP) 1 mg tablet Take 3-4 tablets by mouth daily at bedtime. Take 3-4 tablets nightly for restless legs insulin lispro (HUMALOG KWIKPEN INSULIN) 100 unit/mL Inject 18 Units subcutaneously w MEALS. apremilast (OTEZLA) 30 mg tablet Take 1 tablet by mouth twice daily. warfarin (COUMADIN) 3 mg tablet Take 1 tablet by mouth daily as directed. Take 4.5 mg M-F 3 mg Sat and Sun (Patient taking differently: Take 3 mg by mouth daily as directed. Take 4.5 mg M-Sat 3 mg Sun) carvedilol (COREG) 12.5 mg tablet Take 12.5 mg by mouth once daily. lovastatin 40 mg tablet Take one tablet daily. No current facility-administered medications for this visit. ALLERGIES Allergen Reactions Penicillin G Rash Sulfa (Sulfonamide * Unknown Patient cannot recall any interaction when questioned about this on 04/09/13 Exam: None (telephone encounter) Component Latest Ref Rng & Units 04/06/2022 07/04/2022 WBC 3.70 - 11.00 k/uL 7.68 RBC 4.20 - 6.00 m/uL 4.68 Hemoglobin 13.0 - 17.0 g/dL 13.7 Hematocrit 39.0 - 51.0 % 43.3 MCV 80.0 - 100.0 fL 92.5 MCH 26.0 - 34.0 pg 29.3 MCHC 30.5 - 36.0 g/dL 31.6 RDW-CV 11.5 - 15.0 % 12.7 Platelet Count 150 - 400 k/uL 149 (L) MPV 9.0 - 12.7 fL 11.9 Neut% % 66.7 Abs Neut (ANC) 1.45 - 7.50 k/uL 5.12 Lymph% % 21.7 Abs Lymph 1.00 - 4.00 k/uL 1.67 [place]% % 8.1 Abs [place] <0.87 k/uL 0.62 Eosin% % 2.6 Abs Eosin <0.46 k/uL 0.20 Baso% % 0.5 Abs Baso <0.11 k/uL 0.04 Immature Gran % % 0.4 IMMATURE GRANS (ABS) <0.10 k/uL 0.03 NRBC /100 WBC 0.0 Absolute nRBC <0.01 k/uL <0.01 DTYPE Auto Protein, Total 6.3 - 8.0 g/dL 6.8 7.3 Albumin 3.9 - 4.9 g/dL 3.8 (L) 4.0 Calcium 8.5 - 10.2 mg/dL 9.1 9.0 Bilirubin, Total 0.2 - 1.3 mg/dL 0.3 0.6 Alkaline Phosphatase 38 - 113 U/L 134 (H) 115 (H) AST 14 - 40 U/L 22 25 ALT 10 - 54 U/L 25 24 Glucose 74 - 99 mg/dL 214 (H) 131 (H) BUN 9 - 24 mg/dL 23 18 Creatinine 0.73 - 1.22 mg/dL 1.12 1.12 Sodium 136 - 144 mmol/L 140 139 Potassium 3.7 - 5.1 mmol/L 4.6 4.4 Chloride 97 - 105 mmol/L 106 (H) 104 CO2 22 - 30 mmol/L 24 25 Anion Gap 9 - 18 mmol/L 10 10 eGFR >=60 mL/min/1.73m 74 74 Cholesterol, Total <200 mg/dL 135 Triglyceride <150 mg/dL 256 (H) HDL Cholesterol >39 mg/dL 39 (L) Non HDL Cholesterol <130 mg/dL 96 Fasting Time hrs 12 VLDL Cholesterol <30 mg/dL 51 (H) TC:HDL Ratio <5.10 3.46 LDL Cholesterol <100 mg/dL 45 LDL:HDL Ratio <2.54 1.15 Creatinine, Ur Random (UCRR) 20.0 - 300.0 mg/dL 216.3 Albumin, Urine Random mg/L 79.2 Albumin/Creat Ratio <30 mg/g 37 (H) Hemoglobin A1C 4.3 - 5.6 % 8.0 (H) 8.7 (H) Estimated Average Glucose mg/dL 183 203 PSA Screening <2.60 ng/mL 0.50 ASSESSMENT/PLAN: 1. Controlled type 2 diabetes mellitus without complication, with long-term current use of insulin ([facility]) - ICD9: 250.00, V58.67, ICD10: E11.9, Z79.4 (primary diagnosis) - Worsening control. Likely secondary to less activity, not working at this time. Also not taking the Humalog 3 times daily. We discussed increasing the Trulicity to 4.5 mg/weekly, but he just picked up 3 months worth last week. We will increase his Lantus to 60 units. I will reach out to him in 3 weeks with updated fasting BGs to see if we need to increase. I also encouraged him to eat 3 consistent meals daily so that he can take his 20 units of Humalog. My guess is that he is experiencing highs mid-way through the day. - HGB A1C - COMP METABOLIC PANEL - INSULIN LISPRO (U-100) 100 UNIT/ML SUBCUTANEOUS PEN - INSULIN GLARGINE (U-100) 100 UNIT/ML (3 ML) SUBCUTANEOUS PEN 2. Atrial fibrillation, unspecified type (HCC) - ICD9: 427.31, ICD10: I48.91 - Continue following with [facility]. 3. Mixed hyperlipidemia - ICD9: 272.2, ICD10: E78.2 - to be determined upon return of lab results - Continue current medication. - Encouraged following a low fat, low cholesterol diet. - Discussed the benefits of regular aerobic exercise and weight loss. - COMP METABOLIC PANEL - LIPID PANEL BASIC 4. Restless leg syndrome - ICD9: 333.94, ICD10: G25.81 - Continue with Requip as prescribed 5. SURESH (obstructive sleep apnea) - ICD9: 327.23, ICD10: G47.33 - Continue with CPAP as prescribed. 6. Essential hypertension - ICD9: 401.9, ICD10: I10 - Continue current medications - COMP METABOLIC PANEL Sreekanth Richardson APRN.CNP RTO in 3 months with labs prior. I spent a total of 12 minutes on the date of the service which included preparing to see the patient, completing clinical documentation, obtaining and/or reviewing separately obtained history, counseling and educating the patient/family/caregiver, and ordering medications, tests, or procedures. If you let us know who your primary care provider is, we will send them a notification of today's visit through our electronic medical records system. Since not all providers have access to our notifications, we strongly encourage you to share the following record of today's visit with your primary care provider at your next visit. This will help in providing you the best care. If you do not have an established Primary Care physician and would like to continue care with a [facility] physician, please ask your provider to place a Establish Primary Care order. Use [employer]Ke to manage your care, wherever you are, 03/02, on your mobile device or computer. [employer] connects you to Tip or Skip so you can access all your health information in one place and also schedule and request virtual appointments with primary care providers. documented in this encounter [facility] 06-21-2022 Miscellaneous Notes The following approved medication requests have been transmitted electronically. Requested Prescriptions Pending Prescriptions Disp Refills blood sugar diagnostic (ACCU-CHEK SMARTVIEW TEST STRIP) test strip 150 Strip 11 SiTest blood sugar(s) 4 times daily. Dx: 250.02. Insulin: Yes Sreekanth Richardson APRN.ROGER Patient phones requesting refills as follows: Requested Prescriptions Pending Prescriptions Disp Refills blood sugar diagnostic (ACCU-CHEK SMARTVIEW TEST STRIP) test strip 150 Strip 11 SiTest blood sugar(s) 4 times daily. Dx: 250.02. Insulin: Yes JAREK-04/08/22 Labs-04/06/22 NOV-07/05/22 Please review and advise. Abbie Olivier LPN documented in this encounter [facility] 05-29-2022 Miscellaneous Notes [facility] [address] Chart Copy of medications dispensed to patient for home use May 29, 2022 Physician Initial: ME Narinder Sapp Medication: Lantus Solostar Insulin Qty: 3 boxes Directions: Inject 75 units daily at bedtime Medications administered, dispensed and verified on the date indicated above Patient has been notified to black pickler medication in POC test area 1st floor Pt notified that medication is ready up. . Yessi Wilkins Ma documented in this encounter [facility] 05-13-2022 Miscellaneous Notes Faxed. .Yessi Wilkins Ma Forms done Rob Smiley MD Fax received and routed to PCP. Once complete, please fax back to [phone]. Mandie Gongora Ma [employer] is sending a fax that needs completed for medication. Pt may be able to receive benefit from them for the cost of their medication. Information needed should be in the fax. documented in this encounter [facility] 04-08-2022 Instructions Sreekanth Richardson APRN.CNP - 04/08/2022 7:28 AM EDT Increase Lantus to 57 units at night Continue to work on being active Repeat labs in 3 months. Sreekanth Richardson APRN.ROGER documented in this encounter [facility] 04-08-2022 History of Presen t illness Narrative Chief Complaint Patient presents with: F/U 3 Month Immunizations: Flu vaccination HPI Narinder Sapp is a 62 year old male who presents here today for Chronic Medical Conditions.. DM: Reports overall feeling well. Hgb A1c improved from 8.3 to 8.0%. Medication side effects: No. Home sugar checks: BG in the morning has been around 130. Today was 170. Hypoglycemic spells: No. Watching diet: Yes. Unexpected weight loss: No. Polyuria, polydipsia: No. Vision Changes: No. Foot lesions or numbness or pain: Yes,neuropathy. On gabapentin. Controlled. Following routinely with [facility]. RLS: Taking prescribed Requip with benefit. No side effects. HYPERLIPIDEMIA: Patient is taking medications: Yes. Patient is watching diet: Yes. Patient denies myalgias: Yes. Patient denies gi upset: Yes Afib: Continues to follow with [facility]. On Warfarin and Coreg. No chest pain, shortness of breath or syncope. Depression/Anxiety: Okay on Zoloft. Stable. Some hardship with job loss. Trying to keep active around house. Actually mentally feels better, less stress. Past medical history, appointments, medications, allergies reviewed. Previous Medical History PAST MEDICAL HISTORY Diagnosis Date Atrial fibrillation (HCC) Chronic anticoagulation Diabetes type 2, controlled (HCC) Hodgkin's disease, unspecified type, of lymph nodes of multiple sites 1989, 1994 had BMT - 1994 Melanoma (HCC) Morbid obesity (HCC) Other and unspecified hyperlipidemia Hyperlipidemia Retinal tear left Type II or unspecified type diabetes mellitus without mention of complication, uncontrolled Venous insufficiency (chronic) (peripheral) 12/12/2016 Previous Surgical History PAST SURGICAL HISTORY Procedure Laterality Date BIOPSY SOFT TISSUE NECK/CHEST BONE MARROW ASPIRATE & BIOPSY COLSC FLX W/RMVL OF TUMOR POLYP LESION SNARE TQ 04/21/2015 EGD TRANSORAL BIOPSY SINGLE/MULTIPLE 04/21/2015 INSJ/RPLCMT PERM DFB W/TRNSVNS LDS 1/DUAL CHMBR 09/2014, 12/2014 ICD PAST SURGICAL HISTORY OF 09/2014, 12/2014 cardiac ablation x2 REMV CATARACT EXTRACAP,INSERT LENS Bilateral Family History FAMILY HISTORY Problem Relation Age of Onset Heart Father [place] Patient Allergies ALLERGIES Allergen Reactions Penicillin G Rash Sulfa (Sulfonamide * Unknown Patient cannot recall any interaction when questioned about this on 04/09/13 Current Medications Current Outpatient Medications on File Prior to Visit Medication Sig sertraline (ZOLOFT) 100 mg tablet Take 1 tablet by mouth once daily. insulin glargine (LANTUS SOLOSTAR U-100 INSULIN) 100 unit/mL (3 mL) Inject 55 Units subcutaneously daily at bedtime. insulin needles, DISPOSABLE, (PEN NEEDLE) 31 gauge x 5/16 Use one pen needle 4 times/day with insulin gabapentin (NEURONTIN) 300 mg capsule Take 1 capsule by mouth daily at bedtime for 180 days. dulaglutide (TRULICITY) 3 mg/0.5 mL pen injector Inject 3 mg subcutaneously one time a week. rOPINIRole (REQUIP) 1 mg tablet Take 3-4 tablets by mouth daily at bedtime. Take 3-4 tablets nightly for restless legs insulin lispro (HUMALOG KWIKPEN INSULIN) 100 unit/mL Inject 18 Units subcutaneously w MEALS. metFORMIN ER (GLUCOPHAGE XR) 500 mg 24 hr tablet Take 1 tablet by mouth daily with breakfast. blood sugar diagnostic (ACCU-CHEK SMARTVIEW TEST STRIP) test strip 4Test blood sugar(s) 4 times daily. Dx: 250.02. Insulin: Yes apremilast (OTEZLA) 30 mg tablet Take 1 tablet by mouth twice daily. warfarin (COUMADIN) 3 mg tablet Take 1 tablet by mouth daily as directed. Take 4.5 mg M-F 3 mg Sat and Sun (Patient taking differently: Take 3 mg by mouth daily as directed. Take 4.5 mg M-Sat 3 mg Sun) carvedilol (COREG) 12.5 mg tablet Take 12.5 mg by mouth once daily. Lovastatin (MEVACOR) 40 mg tablet Take one tablet daily. No current facility-administered medications on file prior to visit. Social History Social History Tobacco Use Smoking status: Never Smokeless tobacco: Never Substance Use Topics Alcohol use: No Alcohol/week: 1.7 standard drinks REVIEW OF SYSTEMS: as above Reviewed relevant PMHx, PSHx, Social Hx, current medications and allergies. EXAM: BP 138/88 Pulse 88 Temp 36.6 C (97.8 F) (Left Tympanic) Resp 16 Wt (!) 143 kg (315 lb 3.2 oz) BMI 42.69 kg/m General Appearance: Well appearing, alert, in no acute distress, well-hydrated, well nourished. and Obese. Neck: Supple, no adenopathy; thyroid symmetric, normal size, no bruits. Lungs: Lungs clear to auscultation. No wheezing, rhonchi, rales.. Heart: RRR without murmur, gallop, or rubs. No ectopy. Abdomen: Normal abdominal exam, Abdomen soft, non-tender. Bowel sounds normal. No masses, organomegaly. Extremities: No deformities, edema Health Maintenance List PNEUMOCOCCAL(1 - PCV) Never done DTAP,TDAP,TD(1 - Tdap) Never done SHINGRIX VACCINE(1 of 2) Never done COLORECTAL CANCER SCREENING due on 04/21/2018 COVID-19 VACCINE(3 - Moderna risk series) due on 01/04/2021 DIABETIC FOOT EXAM due on 04/24/2021 INFLUENZA(1) due on 03/14/2022 DILATED RETINAL EXAM due on 03/28/2022 HIV SCREENING due on 06/01/2022 BP CONTROLLED (<130/80) due on 06/01/2022 HBA1C due on 07/06/2022 ANNUAL PCP TEAM CHRONIC DISEASE VISIT due on 01/07/2023 URINE ALBUMIN:CREATININE RATIO due on 04/06/2023 LDL CHOLESTEROL due on 04/06/2023 SERUM CREATININE due on 04/06/2023 PROSTATE CANCER SCREENING DISCUSSION due on 04/06/2027 HEPATITIS C SCREENING Completed Data reviewed Component Latest Ref Rng & Units 04/06/2022 WBC 3.70 - 11.00 k/uL 7.68 RBC 4.20 - 6.00 m/uL 4.68 Hemoglobin 13.0 - 17.0 g/dL 13.7 Hematocrit 39.0 - 51.0 % 43.3 MCV 80.0 - 100.0 fL 92.5 MCH 26.0 - 34.0 pg 29.3 MCHC 30.5 - 36.0 g/dL 31.6 RDW-CV 11.5 - 15.0 % 12.7 Platelet Count 150 - 400 k/uL 149 (L) MPV 9.0 - 12.7 fL 11.9 Neut% % 66.7 Abs Neut (ANC) 1.45 - 7.50 k/uL 5.12 Lymph% % 21.7 Abs Lymph 1.00 - 4.00 k/uL 1.67 [place]% % 8.1 Abs [place] <0.87 k/uL 0.62 Eosin% % 2.6 Abs Eosin <0.46 k/uL 0.20 Baso% % 0.5 Abs Baso <0.11 k/uL 0.04 Immature Gran % % 0.4 IMMATURE GRANS (ABS) <0.10 k/uL 0.03 NRBC /100 WBC 0.0 Absolute nRBC <0.01 k/uL <0.01 DTYPE Auto Protein, Total 6.3 - 8.0 g/dL 6.8 Albumin 3.9 - 4.9 g/dL 3.8 (L) Calcium 8.5 - 10.2 mg/dL 9.1 Bilirubin, Total 0.2 - 1.3 mg/dL 0.3 Alkaline Phosphatase 38 - 113 U/L 134 (H) AST 14 - 40 U/L 22 ALT 10 - 54 U/L 25 Glucose 74 - 99 mg/dL 214 (H) BUN 9 - 24 mg/dL 23 Creatinine 0.73 - 1.22 mg/dL 1.12 Sodium 136 - 144 mmol/L 140 Potassium 3.7 - 5.1 mmol/L 4.6 Chloride 97 - 105 mmol/L 106 (H) CO2 22 - 30 mmol/L 24 Anion Gap 9 - 18 mmol/L 10 eGFR >=60 mL/min/1.73m 74 Cholesterol, Total <200 mg/dL 135 Triglyceride <150 mg/dL 256 (H) HDL Cholesterol >39 mg/dL 39 (L) Non HDL Cholesterol <130 mg/dL 96 Fasting Time hrs 12 VLDL Cholesterol <30 mg/dL 51 (H) TC:HDL Ratio <5.10 3.46 LDL Cholesterol <100 mg/dL 45 LDL:HDL Ratio <2.54 1.15 Creatinine, Ur Random (UCRR) 20.0 - 300.0 mg/dL 216.3 Albumin, Urine Random mg/L 79.2 Albumin/Creat Ratio <30 mg/g 37 (H) Hemoglobin A1C 4.3 - 5.6 % 8.0 (H) Estimated Average Glucose mg/dL 183 PSA Screening <2.60 ng/mL 0.50 ASSESSMENT/PLAN: 1. Controlled type 2 diabetes mellitus without complication, with long-term current use of insulin (HCC) - ICD9: 250.00, V58.67, ICD10: E11.9, Z79.4 (primary diagnosis) Controlled. - Increase Lantus 57 QPM - HGB A1C - COMP METABOLIC PANEL - INSULIN GLARGINE (U-100) 100 UNIT/ML (3 ML) SUBCUTANEOUS PEN 2. Mixed hyperlipidemia - ICD9: 272.2, ICD10: E78.2 - good control - Continue current medication. - Encouraged following a low fat, low cholesterol diet. - Discussed the benefits of regular aerobic exercise and weight loss. - COMP METABOLIC PANEL 3. Atrial fibrillation, unspecified type (HCC) - ICD9: 427.31, ICD10: I48.91 - Continue following with cardiology. 4. Anxiety and depression - ICD9: 300.00, 311, ICD10: F41.9, F32.A - Continue with Zoloft 5. Restless leg syndrome - ICD9: 333.94, ICD10: G25.81 - Stable, continue with Requip 6. Need for influenza vaccination - ICD9: V04.81, ICD10: Z23 - INFLUENZA VACCINE QUADRIVALENT 6 MO - 64 YRS IM Sreekanth Richardson APRN.CNP RTO in 3 months, sooner if needed. This note was partly generated using [employer] voice recognition dictation and may contain some misspelled or inaccurate words missed on review. documented in this encounter [facility] 03-26-2022 Miscellaneous Notes The following approved medication requests have been transmitted electronically. Requested Prescriptions Pending Prescriptions Disp Refills sertraline (ZOLOFT) 100 mg tablet 30 tablet 11 Sig: Take 1 tablet by mouth once daily. Sreekanth Richardson APRN.CNP Last office visit: 01/07/22 F/u scheduled: 04/08/22 Yessi Wilkins Ma documented in this encounter [facility] 01-12-2022 Miscellaneous Notes OK to refill as ordered Rob Smiley MD Last OV; 01/07/22 Next OV; 04/08/22 Last Rx: 07/03/21 # 5 pens with 5 refills. Mandie Gongora Ma documented in this encounter [facility] 01-07-2022 Instructions Sreekanth Richardson APRN.CNP - 01/07/2022 7:23 AM EDT 1. Get labs 2. Complete stool study 3. Drink more water 4. Take night time snack in to avoid lows. Sreekanth Richardson APRN.CNP documented in this encounter [facility] 01-07-2022 History of Presen t illness Narrative Chief Complaint Patient presents with: Saravanan CARTER Narinder Sapp is a 61 year old male who presents here today for Chronic Medical Conditions and Acute Complaints. Due for lab work. DM: Reports overall feeling well. Discussing that he has not been eating much. Eats decent breakfast and lunch and then will not eat dinner. Medication side effects: No. Home sugar checks: BG usually under 140 Hypoglycemic spells: Yes. Got a low of 55 when he skipped dinner a few weeks back. Watching diet: Yes. Unexpected weight loss: No. Polyuria, polydipsia: No. Vision Changes: Yes. Following with [facility] for cateracts. Foot lesions or numbness or pain: Yes. On gabapentin. Following with Dr. Montenegro for footcare every 3 months. RLS : On Requip nightly. Works well. Cannot skip a dose. Following with cardiology. Has about 7 months on his defib battery left until needing exchange. HYPERLIPIDEMIA: Patient is taking medications: Yes. Patient is watching diet: Yes. Patient denies myalgias: Yes. Patient denies gi upset: Yes Declining PCV today. Past medical history, appointments, medications, allergies reviewed. Previous Medical History PAST MEDICAL HISTORY Diagnosis Date Atrial fibrillation (HCC) Chronic anticoagulation Diabetes type 2, controlled (HCC) Hodgkin's disease, unspecified type, of lymph nodes of multiple sites 1989, 1994 had BMT - 1994 Melanoma (HCC) Morbid obesity (HCC) Other and unspecified hyperlipidemia Hyperlipidemia Retinal tear left Type II or unspecified type diabetes mellitus without mention of complication, uncontrolled Venous insufficiency (chronic) (peripheral) 12/12/2016 Previous Surgical History PAST SURGICAL HISTORY Procedure Laterality Date BIOPSY SOFT TISSUE NECK/CHEST BONE MARROW ASPIRATE & BIOPSY COLSC FLX W/RMVL OF TUMOR POLYP LESION SNARE TQ 04/21/2015 EGD TRANSORAL BIOPSY SINGLE/MULTIPLE 04/21/2015 INSJ/RPLCMT PERM DFB W/TRNSVNS LDS 1/DUAL CHMBR 09/2014, 12/2014 ICD PAST SURGICAL HISTORY OF 09/2014, 12/2014 cardiac ablation x2 REMV CATARACT EXTRACAP,INSERT LENS Bilateral Family History FAMILY HISTORY Problem Relation Age of Onset Heart Father [place] Patient Allergies ALLERGIES Allergen Reactions Penicillin G Rash Sulfa (Sulfonamide * Unknown Patient cannot recall any interaction when questioned about this on 04/09/13 Current Medications Current Outpatient Medications on File Prior to Visit Medication Sig rOPINIRole (REQUIP) 1 mg tablet Take 3-4 tablets by mouth daily at bedtime. Take 3-4 tablets nightly for restless legs insulin glargine (LANTUS SOLOSTAR U-100 INSULIN) 100 unit/mL (3 mL) Inject 55 Units subcutaneously daily at bedtime. insulin lispro (HUMALOG KWIKPEN INSULIN) 100 unit/mL Inject 18 Units subcutaneously w MEALS. sertraline (ZOLOFT) 100 mg tablet Take 1 tablet by mouth once daily. metFORMIN ER (GLUCOPHAGE XR) 500 mg 24 hr tablet Take 1 tablet by mouth daily with breakfast. apremilast (OTEZLA) 30 mg tablet Take 1 tablet by mouth twice daily. warfarin (COUMADIN) 3 mg tablet Take 1 tablet by mouth daily as directed. Take 4.5 mg M-F 3 mg Sat and Sun (Patient taking differently: Take 3 mg by mouth daily as directed. Take 4.5 mg M-Sat 3 mg Sun) carvedilol (COREG) 12.5 mg tablet Take 12.5 mg by mouth once daily. Lovastatin (MEVACOR) 40 mg tablet Take one tablet daily. dulaglutide (TRULICITY) 3 mg/0.5 mL pen injector Inject 3 mg subcutaneously one time a week. Inject once per week. Discard Pen After gabapentin (NEURONTIN) 300 mg capsule Take 1 capsule by mouth daily at bedtime for 180 days. insulin needles, DISPOSABLE, (PEN NEEDLE) 31 gauge x 5/16 Use one pen needle 4 times/day with insulin blood sugar diagnostic (ACCU-CHEK SMARTVIEW TEST STRIP) test strip 4Test blood sugar(s) 4 times daily. Dx: 250.02. Insulin: Yes No current facility-administered medications on file prior to visit. Social History Social History Tobacco Use Smoking status: Never Smoker Smokeless tobacco: Never Used Substance Use Topics Alcohol use: No Alcohol/week: 1.7 standard drinks Drug use: Not on file REVIEW OF SYSTEMS: as above Reviewed relevant PMHx, PSHx, Social Hx, current medications and allergies. EXAM: BP 132/80 Pulse 80 Temp 36.3 C (97.4 F) (Left Tympanic) Resp 16 Wt (!) 142.9 kg (315 lb) BMI 42.67 kg/m General Appearance: Well appearing, alert, in no acute distress, well-hydrated, well nourished. and Obese. Head: Normocephalic, no masses, lesions, tenderness or abnormalities. Eyes: Anicteric sclera. Pupils are equally round and reactive to light. Extraocular movements are intact. . Ears: External ears normal, canals clear. Neck: Supple, no adenopathy; thyroid symmetric, normal size Lungs: Lungs clear to auscultation. No wheezing, rhonchi, rales.. Heart: RRR without murmur, gallop, or rubs. No ectopy. Abdomen: Normal abdominal exam, Abdomen soft, non-tender. Bowel sounds normal. No masses, organomegaly. Health Maintenance List PNEUMOCOCCAL(1 - PCV) Never done DTAP,TDAP,TD(1 - Tdap) Never done SHINGRIX VACCINE(1 of 2) Never done COLORECTAL CANCER SCREENING due on 04/21/2018 COVID-19 VACCINE(3 - Moderna risk series) due on 01/04/2021 DIABETIC FOOT EXAM due on 04/24/2021 PROSTATE CANCER SCREENING DISCUSSION due on 08/01/2021 URINE ALBUMIN:CREATININE RATIO due on 10/19/2021 HBA1C due on 11/25/2021 HIV SCREENING due on 06/01/2022 DILATED RETINAL EXAM due on 03/28/2022 LDL CHOLESTEROL due on 05/26/2022 ANNUAL PCP TEAM CHRONIC DISEASE VISIT due on 06/01/2022 BP CONTROLLED (<130/80) due on 06/01/2022 SERUM CREATININE due on 08/28/2022 INFLUENZA Completed HEPATITIS C SCREENING Completed Data reviewed Component Latest Ref Rng & Units 08/28/2021 Protein, Total 6.3 - 8.0 g/dL 7.1 Albumin 3.9 - 4.9 g/dL 4.1 Calcium 8.5 - 10.2 mg/dL 9.4 Bilirubin, Total 0.2 - 1.3 mg/dL 0.8 Alkaline Phosphatase 38 - 113 U/L 98 AST 14 - 40 U/L 28 Glucose 74 - 99 mg/dL 159 (H) BUN 9 - 24 mg/dL 16 Creatinine 0.73 - 1.22 mg/dL 1.05 Sodium 136 - 144 mmol/L 138 Potassium 3.7 - 5.1 mmol/L 4.8 Chloride 97 - 105 mmol/L 104 CO2 22 - 30 mmol/L 24 Anion Gap 9 - 18 mmol/L 10 ALT 10 - 54 U/L 27 eGFR- >60 eGFR-All Other Races . >60 Hemoglobin A1C 4.3 - 5.6 % 8.3 (H) Estimated Average Glucose mg/dL 192 ASSESSMENT/PLAN: 1. Controlled type 2 diabetes mellitus without complication, with long-term current use of insulin (HCC) - ICD9: 250.00, V58.67, ICD10: E11.9, Z79.4 (primary diagnosis) Controlled. Get Hgb A1c - Continue current medications - Discussed trying to avoid skipping meals, advised use of bedtime snack to avoid episodes of hypoglycemia. Notify me via mychart if it worsens in frequency. - GABAPENTIN 300 MG CAPSULE - HGB A1C - LIPID PANEL, NONFASTING - COMP METABOLIC PANEL - CBC + DIFF - ALBUMIN/CREAT RATIO RND UR 2. Restless leg syndrome - ICD9: 333.94, ICD10: G25.81 - Stable, continue with Requip, Gabapentin - GABAPENTIN 300 MG CAPSULE 3. Screening for prostate cancer - ICD9: V76.44, ICD10: Z12.5 - PSA/PROSTSPECAG SCRN 4. Screening for colon cancer - ICD9: V76.51, ICD10: Z12.11 - Discussing that he should have a colonoscopy with history of colon polyps, we will get iFOBT for now. - FECAL OCCULT BLOOD TEST 5. Anxiety and depression - ICD9: 300.00, 311, ICD10: F41.9, F32.A - Continue with zoloft as prescribe 6. Atrial fibrillation, unspecified type (HCC) - ICD9: 427.31, ICD10: I48.91 - Continue following with cardiology. 7. Mixed hyperlipidemia - ICD9: 272.2, ICD10: E78.2 - to be determined upon return of lab results - Continue current medication. - Encouraged following a low fat, low cholesterol diet. - Discussed the benefits of regular aerobic exercise and weight loss. Sreekanth Richardson APRN.SUPERVISORY INVESTIGATIVE SPECIALIST RTO in 3 months, sooner if needed. I spent a total of 33 minutes on the date of the service which included preparing to see the patient, [id number] patient care, completing clinical documentation, obtaining and/or reviewing separately obtained history, performing a medically appropriate examination, counseling and educating the patient/family/caregiver and ordering medications, tests, or procedures. This note was partly generated using [employer] voice recognition dictation and may contain some misspelled or inaccurate words missed on review. Electronically signed by Sreekanth Richardson APRN.SUPERVISORY INVESTIGATIVE SPECIALIST at 01/07/2022 7:39 AM EDTdocumented in this encounter [facility] 11-20-2021 Miscellaneous Notes Images from the original note were not included. Betty Jacome LPN Prior Authorization has been completed online at [employer] for Sandie, will await response. LUNA- [id number] Please keep encounter open until final decision has been received and documented from insurance company. Betty Jacome LPN documented in this encounter [facility] Diagnosis Controlled type 2 diabetes mellitus without complication, with long-term current use of insulin ([facility]) [facility] Diagnosis Anxiety and depression Dysthymic disorder [facility] Diagnosis Controlled type 2 diabetes mellitus without complication, with long-term current use of insulin (HCC)- Primary Mixed hyperlipidemia Atrial fibrillation, unspecified type (HCC) Anxiety and depression Dysthymic disorder Restless leg syndrome Restless legs syndrome (RLS) Need for influenza vaccination Need for prophylactic vaccination and inoculation against influenza [facility] Diagnosis Controlled type 2 diabetes mellitus without complication, with long-term current use of insulin ([facility])- Primary [facility] Diagnosis Controlled type 2 diabetes mellitus without complication, with long-term current use of insulin (HCC)- Primary Atrial fibrillation, unspecified type (HCC) Mixed hyperlipidemia Restless leg syndrome Restless legs syndrome (RLS) SURESH (obstructive sleep apnea) Obstructive sleep apnea (adult) (pediatric) Essential hypertension Unspecified essential hypertension [facility] Diagnosis Restless leg syndrome Restless legs syndrome (RLS) [facility] Diagnosis Acute cough- Primary SOB (shortness of breath) Shortness of breath [facility] Diagnosis Community acquired pneumonia, unspecified laterality- Primary Other conjunctivitis of both eyes [facility] Diagnosis Controlled type 2 diabetes mellitus without complication, without long-term current use of insulin (HCC)- Primary Anxiety and depression Dysthymic disorder Restless leg syndrome Restless legs syndrome (RLS) Community acquired pneumonia, unspecified laterality Atrial fibrillation, unspecified type (HCC) Mixed hyperlipidemia Essential hypertension Unspecified essential hypertension Screening for colon cancer Special screening for malignant neoplasms, colon Lightheadedness Dizziness and giddiness [facility] Diagnosis Controlled type 2 diabetes mellitus without complication, without long-term current use of insulin (HCC)- Primary Anxiety and depression Dysthymic disorder Atrial fibrillation, unspecified type (HCC) Bilateral leg edema Edema Abnormal heart rate Other abnormal heart sounds Closed fracture of multiple ribs of left side with routine healing, subsequent encounter Pneumonia of lower lobe due to infectious organism, unspecified laterality [facility] Diagnosis Controlled type 2 diabetes mellitus without complication, without long-term current use of insulin (HCC)- Primary [facility] Diagnosis Recurrent Clostridioides difficile diarrhea- Primary External hemorrhoid External hemorrhoids without mention of complication [facility] Diagnosis External hemorrhoid, thrombosed- Primary External thrombosed hemorrhoids [facility] Diagnosis Anxiety and depression Dysthymic disorder Controlled type 2 diabetes mellitus with diabetic polyneuropathy, with long-term current use of insulin (HCC)- Primary C. difficile diarrhea Intestinal infection due to clostridium difficile [facility]* Diagnosis Controlled type 2 diabetes mellitus with diabetic polyneuropathy, with long-term current use of insulin (HCC)- Primary C. difficile diarrhea Intestinal infection due to clostridium difficile External hemorrhoid External hemorrhoids without mention of complication Restless leg syndrome Restless legs syndrome (RLS) Encounter for immunization Need for other specified prophylactic vaccination against single bacterial disease [facility]* Diagnosis Controlled type 2 diabetes mellitus without complication, with long-term current use of insulin (HCC) [facility] Outpatient Procedure (Routine) - Pending Review Specialty Diagnoses / Procedures Referred By Contac t Referred To [facility] Diagnoses Atrial fibrillation, unspecified type (HCC) Bilateral leg edema Procedures ECHO ECHO TTHRC R-T 2D W/WOM-MODE COMPL SPEC&COLR D Sreekanth Richardson APRN.SUPERVISORY INVESTIGATIVE SPECIALIST [address] [place] [address] [facility] [address] [place] [address] Referral ID Status Reason Start Date Expiration Date Visits Requested Visits Authorized [id number] Pending Review Auto-Generat ed Referral 02/11/2023 02/11/2024 1 1 [facility] Reason for Referral Specialty Diagnoses / Procedures Referred By Lesly t Referred To Contact General Surgery Diagnoses External hemorrhoid Procedures CONSULT TO GENERAL SURGERY OFFICE/OUTPATIENT [facility] 60-74 MINUTES Sreekanth Richardson APRN.SUPERVISORY INVESTIGATIVE SPECIALIST [address] [place] [address] Referral ID Status Reason Start Date Expiration Date Visits Requested Visits Authorized [id number] Pending Review PCP Requested Referral 04/11/2023 04/10/2024 1 1 Health Concerns Infection Onset Date Last Indicated Resolved Time C. difficile 04/10/2023 04/10/2023 Infection Onset Date Last Indicated Resolved Time C. difficile 04/10/2023 04/10/2023 Infection Onset Date Last Indicated Resolved Time C. difficile 04/10/2023 04/10/2023 05/10/2023 8:51 PM EDT Summary Purpose Family History No Family History Records Found Advance Directives No Advanced Directives Records Found Additional Source Comments Source Comments (unrecognize d section and content) In the event this informatio n is protected by the Federal Confidentiality of Alcohol and Drug Abuse Patient Records regulations: The Federal rules restrict any use of the information to criminally investigate or prosecute any alcohol or drug abuse patient.[facility] the event this information is protected by the Federal Confidentiality of Alcohol and Drug Abuse Patient Records regulations: The Federal rules restrict any use of the information to criminally investigate or prosecute any alcohol or drug abuse patient.[facility] the event this information is protected by the Federal Confidentiality of Alcohol and Drug Abuse Patient Records regulations: The Federal rules restrict any use of the information to criminally investigate or prosecute any alcohol or drug abuse patient.[facility] the event this information is protected by the Federal Confidentiality of Alcohol and Drug Abuse Patient Records regulations: The Federal rules restrict any use of the information to criminally investigate or prosecute any alcohol or drug abuse patient.[facility] the event this information is protected by the Federal Confidentiality of Alcohol and Drug Abuse Patient Records regulations: The Federal rules restrict any use of the information to criminally investigate or prosecute any alcohol or drug abuse patient.[facility] the event this information is protected by the Federal Confidentiality of Alcohol and Drug Abuse Patient Records regulations: The Federal rules restrict any use of the information to criminally investigate or prosecute any alcohol or drug abuse patient.[facility] the event this information is protected by the Federal Confidentiality of Alcohol and Drug Abuse Patient Records regulations: The Federal rules restrict any use of the information to criminally investigate or prosecute any alcohol or drug abuse patient.[facility] the event this information is protected by the Federal Confidentiality of Alcohol and Drug Abuse Patient Records regulations: The Federal rules restrict any use of the information to criminally investigate or prosecute any alcohol or drug abuse patient.[facility] the event this information is protected by the Federal Confidentiality of Alcohol and Drug Abuse Patient Records regulations: The Federal rules restrict any use of the information to criminally investigate or prosecute any alcohol or drug abuse patient.[facility] the event this information is protected by the Federal Confidentiality of Alcohol and Drug Abuse Patient Records regulations: The Federal rules restrict any use of the information to criminally investigate or prosecute any alcohol or drug abuse patient.[facility] the event this information is protected by the Federal Confidentiality of Alcohol and Drug Abuse Patient Records regulations: The Federal rules restrict any use of the information to criminally investigate or prosecute any alcohol or drug abuse patient.[facility] the event this information is protected by the Federal Confidentiality of Alcohol and Drug Abuse Patient Records regulations: The Federal rules restrict any use of the information to criminally investigate or prosecute any alcohol or drug abuse patient.[facility] the event this information is protected by the Federal Confidentiality of Alcohol and Drug Abuse Patient Records regulations: The Federal rules restrict any use of the information to criminally investigate or prosecute any alcohol or drug abuse patient.[facility] the event this information is protected by the Federal Confidentiality of Alcohol and Drug Abuse Patient Records regulations: The Federal rules restrict any use of the information to criminally investigate or prosecute any alcohol or drug abuse patient.[facility] the event this information is protected by the Federal Confidentiality of Alcohol and Drug Abuse Patient Records regulations: The Federal rules restrict any use of the information to criminally investigate or prosecute any alcohol or drug abuse patient.[facility] the event this information is protected by the Federal Confidentiality of Alcohol and Drug Abuse Patient Records regulations: The Federal rules restrict any use of the information to criminally investigate or prosecute any alcohol or drug abuse patient.[facility] the event this information is protected by the Federal Confidentiality of Alcohol and Drug Abuse Patient Records regulations: The Federal rules restrict any use of the information to criminally investigate or prosecute any alcohol or drug abuse patient.[facility] the event this information is protected by the Federal Confidentiality of Alcohol and Drug Abuse Patient Records regulations: The Federal rules restrict any use of the information to criminally investigate or prosecute any alcohol or drug abuse patient.[facility] the event this information is protected by the Federal Confidentiality of Alcohol and Drug Abuse Patient Records regulations: The Federal rules restrict any use of the information to criminally investigate or prosecute any alcohol or drug abuse patient.[facility]In the event this information is protected by the Federal Confidentiality of Alcohol and Drug Abuse Patient Records regulations: The Federal rules restrict any use of the information to criminally investigate or prosecute any alcohol or drug abuse patient.[facility]In the event this information is protected by the Federal Confidentiality of Alcohol and Drug Abuse Patient Records regulations: The Federal rules restrict any use of the information to criminally investigate or prosecute any alcohol or drug abuse patient.[facility]In the event this information is protected by the Federal Confidentiality of Alcohol and Drug Abuse Patient Records regulations: The Federal rules restrict any use of the information to criminally investigate or prosecute any alcohol or drug abuse patient.[facility] the event this information is protected by the Federal Confidentiality of Alcohol and Drug Abuse Patient Records regulations: The Federal rules restrict any use of the information to criminally investigate or prosecute any alcohol or drug abuse patient.[facility] the event this information is protected by the Federal Confidentiality of Alcohol and Drug Abuse Patient Records regulations: The Federal rules restrict any use of the information to criminally investigate or prosecute any alcohol or drug abuse patient.[facility] the event this information is protected by the Federal Confidentiality of Alcohol and Drug Abuse Patient Records regulations: The Federal rules restrict any use of the information to criminally investigate or prosecute any alcohol or drug abuse patient.[facility] the event this information is protected by the Federal Confidentiality of Alcohol and Drug Abuse Patient Records regulations: The Federal rules restrict any use of the information to criminally investigate or prosecute any alcohol or drug abuse patient.[facility] the event this information is protected by the Federal Confidentiality of Alcohol and Drug Abuse Patient Records regulations: The Federal rules restrict any use of the information to criminally investigate or prosecute any alcohol or drug abuse patient.[facility] the event this information is protected by the Federal Confidentiality of Alcohol and Drug Abuse Patient Records regulations: The Federal rules restrict any use of the information to criminally investigate or prosecute any alcohol or drug abuse patient.[facility] the event this information is protected by the Federal Confidentiality of Alcohol and Drug Abuse Patient Records regulations: The Federal rules restrict any use of the information to criminally investigate or prosecute any alcohol or drug abuse patient.[facility] the event this information is protected by the Federal Confidentiality of Alcohol and Drug Abuse Patient Records regulations: The Federal rules restrict any use of the information to criminally investigate or prosecute any alcohol or drug abuse patient.[facility] Reason for Visit (unrecogniz ed section and content) Specialty Diagnoses / Procedures Referred By Lesly t Referred To Contact Family Medicine / FAMILY MEDICINE Diagnoses 3 month follow up Procedures 4C EST Rob Smiley MD [address] [place] [address] Sreekanth Richardson APRN.ROGER [address] [place] [address] Referral ID Status Reason Start Date Expiration Date V isits Requested Visits Authorized [id number] Authorized 04/08/2022 07/13/2022 3 3 Reason Comments Insurance Authorization Trulicity Reason Comments Recheck Reason Onset Date Comments Refill Request 01/11/2022 Reason Onset Date Comments Refill Request 03/25/2022 Reason Onset Date Comments F/U 3 Month Immunizations 04/08/2022 Flu vaccination Reason Comments Patient Update Reason Comments Patient Assistance Lantus Solostar Insu eunice Reason Onset Date Comments Refill Request 06/21/2022 Reason Onset Date Comments Refill Request 07/29/2022 Reason Comments Medication Question Reason Comments indigent meds Lantus Insulin Reason Comments Cough Pt reported chest co ngestion, SOB x1 wk. Reason Comments ER F/U [facility] 10/18/22-; DX: pneumoniaBIL eye redness with drainage since 10/18/22 Specialty Diagnoses / Procedures Referred By Contac t Referred To Contact Family Medicine / FAMILY MEDICINE Diagnoses head cold/ cough Procedures 4C EST Self Sreekanth Richardson, GERMAN.SUPERVISORY INVESTIGATIVE SPECIALIST [address] [place] [address] Referral ID Status Reason Start Date Expiration Date Visits Re quested Visits Authorized [id number] Closed 10/18/2022 01/16/2023 1 1 Reason Comments Follow Up PNE & DM Specialty Diagnoses / Procedures Referred By Contac t Referred To Contact Family Medicine / FAMILY MEDICINE Diagnoses 1 Month F/U-Pneumonia & DM Procedures 4C EST Self Sreekanth Richardson, GERMAN.SUPERVISORY INVESTIGATIVE SPECIALIST [address] [place] [address] Referral ID Status Reason Start Date Expiration Date Visits Re quested Visits Authorized [id number] Closed 11/30/2022 07/13/2023 1 1 Reason Comments Refill Request Reason Comments ER F/U [facility] 02/05/23; Fall-Mu ltiple rib fracture, left & right elbow contusion, pleural effusion & left lower lobe pnuemonia Specialty Diagnoses / Procedures Referred By Contac t Referred To Contact Family Medicine / FAMILY MEDICINE Diagnoses Diabetes (HCC) Diabetes Procedures [facility] Rob Smiley MD [address] [place] [address] Sreekanth Richardson, GERMAN.SUPERVISORY INVESTIGATIVE SPECIALIST [address] [place] [address] Referral ID Status Reason Start Date Expiration Date Visits Re quested Visits Authorized [id number] Closed 02/11/2023 07/13/2023 1 1 Reason Comments Results Reason Comments Patient Question Reason Comments Call regarding Lantus Reason Comments Follow Up For C-DIFF & bumps on re ctum x 4 days Reason Comments Forms Pt assistance form f or Trulicity Reason Comments Consult Consultation for hem orrhoids. Specialty Diagnoses / Procedures Referred By Lesly medrano Referred To Contact General Surgery / GENERAL SURGERY Diagnoses hemeroids- EXTERNAL HEMORRHOIDS- STB Procedures NEW DDI PATIENT Jose Alfredo Lindquist MD [address] [facility] [address] Jose Alfredo Lindquist MD [address] [facility] [place] [address] Referral ID Status Reason Start Date Expiration Date Visits Re quested Visits Authorized [id number] Denied 04/24/2023 07/23/2023 1 0 Reason Onset Date Comments Refill Request 04/30/2023 Refill Request 05/12/2023 Reason Comments 8 week f/u Specialty Diagnoses / Procedures Referred By Lesly medrano Referred To Contact Family Medicine / FAMILY MEDICINE Diagnoses Follow-up exam 8 week follow up Procedures 4C EST Self Sreekanth Richardson, GERMAN.SUPERVISORY INVESTIGATIVE SPECIALIST [address] [place] [address] Referral ID Status Reason Start Date Expiration Date V isits Requested Visits Authorized [id number] Denied Clearance Not Met - Admin/Chairm an/Director Advise to Postpone/Res chedule or Not Proceed 05/13/2023 08/11/2023 1 0 Reason Onset Date Comments Refill Request 05/24/2023 Care Teams (unrecognized sec tion and content) Nurse Receptionist Relationship Specialty Start Date End Date Rob Smiley MD [address] [place], [place] [id number] PCP - General Family Practice 05/18/10 Nurse Receptionist Relationship Specialty Start Date End Date Rob Smiley MD [address] [place] [address] PCP - General Family Practice 05/18/10 Nurse Receptionist Relationship Specialty Start Date End Date Rob Smiley MD [address] [place] [address] PCP - General Family Practice 05/18/10 Nurse Receptionist Relationship Specialty Start Date End Date Rob Smiley MD [address] [place] [address] PCP - General Family Medicine 05/18/10 Nurse Receptionist Relationship Specialty Start Date End Date Rob Smiley MD [address] [place] [address] PCP - General Family Medicine 05/18/10 Nurse Receptionist Relationship Specialty Start Date End Date Rob Smiley MD [address] [place] [address] PCP - General Family Medicine 05/18/10 Nurse Receptionist Relationship Specialty Start Date End Date Rob Smiley MD [address] [place] [address] PCP - General Family Medicine 05/18/10 Nurse Receptionist Relationship Specialty Start Date End Date Rob Smiley MD [address] [place] [address] PCP - General Family Medicine 05/18/10 Nurse Receptionist Relationship Specialty Start Date End Date Rob Smiley MD [address] [place] [address] PCP - General Family Medicine 05/18/10 Nurse Receptionist Relationship Specialty Start Date End Date Rob Smiley MD [address] [place] [address] PCP - General Family Medicine 05/18/10 Nurse Receptionist Relationship Specialty Start Date End Date Rob Smiley MD [address] [facility] [place] [address] PCP - General Family Medicine 05/18/10 Nurse Receptionist Relationship Specialty Start Date End Date Rob Smiley MD [address] [place] [address] PCP - General Family Medicine 05/18/10 Nurse Receptionist Relationship Specialty Start Date End Date Rob Smiley MD [address] [place] [address] PCP - General Family Medicine 05/18/10 Nurse Receptionist Relationship Specialty Start Date End Date Rob Smiley MD [address] [place] [address] PCP - General Family Medicine 05/18/10 Nurse Receptionist Relationship Specialty Start Date End Date Rob Smiley MD [address] [place] [address] PCP - General Family Medicine 05/18/10 Nurse Receptionist Relationship Specialty Start Date End Date Rob Smiley MD [address] [place] [address] PCP - General Family Medicine 05/18/10 Nurse Receptionist Relationship Specialty Start Date End Date Rob Smiley MD [address] [place] [address] PCP - General Family Medicine 05/18/10 Nurse Receptionist Relationship Specialty Start Date End Date Rob Smiley MD [address] [place] [address] PCP - General Family Medicine 05/18/10 Nurse Receptionist Relationship Specialty Start Date End Date Rob Smiley MD [address] [place] [address] PCP - General Family Medicine 05/18/10 Nurse Receptionist Relationship Specialty Start Date End Date Rob Smiley MD [address] [place] [address] PCP - General Family Medicine 05/18/10 Nurse Receptionist Relationship Specialty Start Date End Date Rob Smiley MD [address] [place] [address] PCP - General Family Medicine 05/18/10 Nurse Receptionist Relationship Specialty Start Date End Date Rob Smiley MD [address] [place] [address] PCP - General Family Medicine 05/18/10 Nurse Receptionist Relationship Specialty Start Date End Date Rob Smiley MD [address] [place] [address] PCP - General Family Medicine 05/18/10 Nurse Receptionist Relationship Specialty Start Date End Date Rob Smiley MD [address] [place] [address] PCP - General Family Medicine 05/18/10 Nurse Receptionist Relationship Specialty Start Date End Date Rob Smiley MD [address] [place] [address] PCP - General Family Medicine 05/18/10 Nurse Receptionist Relationship Specialty Start Date End Date Rob Smiley MD [address] [place] [address] PCP - General Family Medicine 05/18/10 (unrecognized sect ion and content) No Status Records Found INFORMATION SOURCE (unrecogn ized section and content) FOR RECORDS PERTAINING TO PATIENTS WHO ARE OR HAVE BEEN ENROLLED IN A CHEMICAL DEPENDENCY/SUBSTANCEABUSE PROGRAM, SOME INFORMATION MAY BE OMITTED. This clinical summary was aggregated from multiple sources. Caution should be exercised in using it in the provision of clinical care. This summary normalizes information from multiple sources, and as a consequence, information in this document may materially change the coding, format and clinical context of patient data. In addition, data may be omitted in some cases. CLINICAL DECISIONS SHOULD BE BASED ON THE PRIMARY CLINICAL RECORDS. [facility] [employer] [facility]. provides no warranty or guarantee of the accuracy or completeness of information in this document.
[2023-09-05] MEDS: Oxycodone/Apap 5/325 Tablet PO (22:35)
[2023-09-05 22:38] VITALS: BP 125/71; PULSE 60; RESP 16; TEMP 36.7; O2SAT 98
== END 2023-09-05 22:45 | disposition home or self-care (01) ==
LOC: ED 22:26
PROVIDERS: Emergency Provider Emergency Medicine; PCP Family Medicine; Visit Provider Emergency Medicine
DX: S20.212A Contusion of left front wall of thorax, initial encounter (principal); I50.22 Chronic systolic (congestive) heart failure; I48.0 Paroxysmal atrial fibrillation; E11.9 Type 2 diabetes mellitus without complications; Z79.4 Long term (current) use of insulin; Z79.01 Long term (current) use of anticoagulants; Z95.0 Presence of cardiac pacemaker; W01.10XA Fall on same level from slipping, tripping and stumbling with subsequent striking against unspecified object, initial encounter; Y93.01 Activity, walking, marching and hiking; Y92.89 Other specified places as the place of occurrence of the external cause; E78.2 Mixed hyperlipidemia; Z79.899 Other long term (current) drug therapy; Z79.84 Long term (current) use of oral hypoglycemic drugs
CPT/HCPCS: 71101; 99282

== ENCOUNTER 2023-10-17 05:33 | Day surgery (SDC) | payer MEDICAID, SELFPAY ==
[2023-10-17] VITALS (7 sets, daily range): BP systolic 99–137; BP diastolic 48–79; PULSE 60–69; RESP 12–20; TEMP 36–36.6; O2SAT 95–100; BMI 41.2
--- NOTE | 2023-10-17 05:37 | HP.PCM_ITS ---
History and Physical Date of Admission: 10/17/23 Visit Reasons: LOOSE STOOLS - SCOPE Chief Complaint: loose stools Is patient in pain?: No Allergies Penicillins Allergy (Verified 10/14/23 14:44) UnknownSulfa (Sulfonamide Antibiotics) Allergy (Verified 10/14/23 14:44) Unknown Medications ropinirole 0.25 mg tablet See Rx Instructions PO QHS 09/10/17 [History Confirmed 10/14/23] dulaglutide 0.75 mg/0.5 mL subcutaneous pen injector (Trulicity) 0.75 mg subcut QWEEK 09/16/17 [History Confirmed 10/14/23] sertraline 100 mg tablet 100 mg PO QDAY 09/16/17 [History Confirmed 10/14/23] carvedilol 6.25 mg tablet 6.25 mg PO BID 02/05/23 [History Confirmed 10/14/23] cyclobenzaprine 10 mg tablet 10 mg PO HS PRN muscle spasm #20 tabs 02/12/23 [Rx Confirmed 03/19/23] furosemide 20 mg tablet (Lasix) 20 mg PO DAILY 02/12/23 [History Confirmed 10/14/23] gabapentin 300 mg capsule 300 mg PO DAILY 05/28/23 [History Confirmed 10/14/23] methocarbamol 500 mg tablet 500 mg PO 4X/DAY PRN PRN Muscle pain/spasm #40 tabs 09/05/23 [Rx] oxycodone-acetaminophen 5 mg-325 mg tablet (Percocet) 1 tab PO Q6H PRN pain 5 days #20 tabs 09/05/23 [Rx] lovastatin 40 mg tablet 40 mg PO DAILY #90 tabs 10/01/23 [Rx Confirmed 10/14/23] insulin glargine 100 unit/mL subcutaneous solution (Lantus U-100 Insulin) 60 unit subcut QPM 10/14/23 [History Confirmed 10/14/23] insulin lispro 100 unit/mL subcutaneous pen 20 unit subcut TID 10/14/23 [History Confirmed 10/14/23] warfarin 3 mg tablet 3 mg PO .MTWTH 10/14/23 [History Confirmed 10/14/23] warfarin 4 mg tablet 4.5 mg PO .FSSun 10/14/23 [History Confirmed 10/14/23] PFSH Medical History Atrial flutter Chronic systolic heart failure Contusion of left chest wall Contusion of right elbow Diabetes mellitus History of cardiac arrest Left elbow contusion detention current use of anticoagulant Longstanding persistent atrial fibrillation Mixed hyperlipidemia Morbid obesity Multiple fractures of ribs, left side, initial encounter for closed fracture Non-ischemic cardiomyopathy Non-sustained ventricular tachycardia Nonobstructive atherosclerosis of coronary artery Obstructive sleep apnea Orthostatic hypotension Paroxysmal atrial fibrillation Pleural effusion, left Surgical History History of cataract surgery History of radiofrequency ablation (RFA) procedure for cardiac arrhythmia (01/06/15) History of right and left heart catheterization (09/23/14) Hx of atrioventricular node ablation (01/06/15) Presence of biventricular implantable cardioverter-defibrillator (ICD) (01/06/15) Family History Father , in his late 60's from an [place] CAD (coronary artery disease) Myocardial infarction Sudden cardiac deathMother , Age 80, hx of CAD CAD (coronary artery disease)Brother CAD (coronary artery disease) Atrial fibrillation H/O cardiac radiofrequency ablation Cardiac pacemakerBrother unknown health historyBrother CAD (coronary artery disease) Atrial fibrillationOther Family history of CVA Family history of hypertension Social History Smoking Status: Never smoker alcohol intake: never substance use type: does not use HPI HPI HPI: 63-year-old gentleman is being referred by Dr. Ramsey Chairez and Demarcus Richardson CNP for surgical consultation regarding looser stools. A written copy my surgical consult and recommendations will return to them. By report he had C. difficile colitis twice in the previous year. He has stage III chronic kidney disease and cardiomyopathy and atrial fibrillation. Because of Hemoccult positive stool and suspected blood loss anemia I have previously assisted him April 21, 2015 with a combined esophagogastroduodenoscopy with biopsies and colonoscopies with polypectomies x 3. 2 polyps were noted at the hepatic flexure and one within the mid transverse colon. Pathology demonstrated mild gastritis and some mild reflux esophagitis. The polyps at the [place] flexure with tubular adenomas and in the mid transverse colon a tubular adenoma. His H. pylori was negative at that time. The patient states that after his episodes of C. difficile colitis that his stools resolved more than normal but now for several months he has had looser stools he will have looser stools a day and the next a more normal and then looser stools. He did have significant hemorrhoidal problems when he had a C. difficile colitis but that improved with [id number] topical ointments. He denies any bright red blood per rectum or melena. No significant weight loss with this problem. No particular abdominal pain. He notes lower extremity swelling and that will be on and off. He is able to climb a flight of steps but he does get dyspneic. He does have an indwelling pacemaker ROS General General: Yes weight change and fatigue; No appetite, colon cancer, breast cancer or weakness HEENT HEENT: No difficulty swallowing, eye injury, eye surgery, swollen glands or hoarseness Endo Endocrine: Yes diabetes mellitus; No thyroid disease, thyroid cancer, Hair loss, heat intolerance or cold intolerance Skin Skin: No rash or changing moles Musc Musculoskeletal: No back problems, arthritis, rheumatoid arthritis, gout or j oint pain Cardio Cardiovascular: Yes pacemaker, heart disease and atrial fibrillation; No murmur, high blood pressure, heart attack, heart stent, palpitations, shortness of breat with exertion or chest pain Psych Psychiatric: No depression, anxiety or hearing voices Resp Respiratory: Yes shortness of breath, Yes sleep apnea, No cough, No COPD, No asthma, No emphysema and No wheezing Gastro Gastrointestinal: No abdominal pain, No nausea or vomiting, Yes diarrhea, No constipation, Yes blood in stool, No acid reflux, Yes hemorrhoids, No ulcers, No gallbladder problem and No black,tarry stools Sawyer Hematologic: Yes blood thinners, No blood disorders, No bleeding, No anemia and No blood clots Neuro Neurologic: No system reviewed and no additional complaints, except as documented, No as per HPI, No abnormal gait, No abnormal hearing, No abnormal movements, No abnormal speech, No behavioral changes, No burning sensations, No confusion, No convulsions, No disequilibrium, No dizziness, No localized weakness, No frequent falls, No headache(s), No lack of coordination, No loss of vision, No memory loss, Yes numbness, No other visual disturbances, No radicular pain, No restless legs, No sensory deficit, No syncope, Yes tingling, No tremor(s), No weakness and No other Exam Const General: cooperative, comfortable and no acute distress Nutritional Appearance: obese morbidly obese [facility] Head: normal to inspection Eyes General: appearance normal, both eyes and all related structures Neck Neck: normal visual inspection Chest Chest palpation & inspection: normal inspection of the chest Resp Effort & Inspection: normal respiratory effort Auscultation: clear to auscultation bilaterally Cardio Rate: regular rate Rhythm: regular rhythm Other: Rhythm is regular I am not detecting atrial fibrillation at this time GI Palpation: soft and no hepatosplenomegaly Other: I am not able to detect any internal organs due to patient's body habitus Skin Other: Hyperpigmentation bilateral lower extremities Neuro General: patient alert, patient awake and patient oriented x3 Extrem Other: 3+ bilateral extremity swelling Psych Appearance: grossly normal Assessment and Plan Assessment and Plan (1) Loose stools: Status: Acute Plan: Loose stools. Intermittent. Etiology not clear. Previous history of C. difficile colitis x 2 though recent testing negative. I propose for him a colonoscopy with possible biopsy or polypectomy as i ndicated. Would strongly consider random colonic biopsies. The patient is morbidly obese which may make intubating the terminal ileum technically difficult but pending the procedure would consider that. We will have the patient hold his warfarin. We will try to expedite his endoscopic procedure for him. He has had an opportunity to ask and have questions answered. I appreciate the ongoing option of assisting with the surgical care. Medications: Discontinued lisinopril Discontinued Reason: Discontinued by PCP/other physicians 5 mg PO DAILY 30 tabs 11RF spironolactone Discontinued Reason: Discontinued by PCP/other physicians 25 mg PO DAILY 30 tabs 11RF warfarin Discontinued Reason: Discontinued by PCP/other physicians See Protocol 3 mg PO 1.5 tablets on Weds, Thurs, Fri and 1 tablet daily the rest of the week, or as directed; 100 tabs 4RF hydrocodone-acetaminophen 5-325 mg Discontinued Reason: Pt no longer taking 1 TAB PO Q6H PRN 3 days PRN 10 TABLETS 0RF Pain S20.212A - Contusion of left front wall of thorax, initial encounter doxycycline monohydrate Discontinued Reason: Order Completed 100 mg PO BID 20 CAPSULES 0RF vancomycin (Vancocin) Discontinued Reason: Pt no longer taking 125 mg PO Q6H 10 days 40 caps 0RF Plan Copy:Dr. Ramsey Chairez and Demarcus Richardson, ROGER Bennett M.D., F.A.C.S Plan to proceed with a colonoscopy. May consider random colonic biopsies. Possible stool collection for C. difficile. Possible intubation of the terminal ileum. Nikhil Bennett M.D., F.A.C.S.
[2023-10-17 06:01] LABS: INR Fingerstick 1.5; Prothrombin Time Fingerstick 16.6 SEC (11.7-14.9)
[2023-10-17] MEDS: Lactated Ringers 1,000 ML 15 ML IV (06:01)
--- NOTE | 2023-10-17 06:30 | COLBX_PTH ---
PATIENT: ZHANE WHITE [place] [facility] [id number] AGE/SX: 63/M ROOM: RE10/17/[address]: Dr. Nikhil Bennett MD : 1960 BED: DIS: 10/17/2023 SPEC #: [id number] RECD: 10/17/23 11:09 STATUS: LANG GODDARD #: [id number] SHERRI: 10/17/23 06:[address]: Nikhil Bennett DEPT: SURGICAL PATHOLOGY RECD BY: Louise Bangura ENTERED: 10/17/23 12:13 SP TYPE: COLON BX OTHR DR: Dr. Ramsey Chairez MD Tissues: A - COLON BIOPSY B - COLON BIOPSY C - COLON BIOPSY D - Transverse colon E - Descending colon F - Descending colon Procedures: Surgery Specimen Level IV HEADER OPERATION: Colonoscopy with stool for cdiff, biopsy, polypectomy PRE-OP DIAGNOSIS: Loose stools TISSUE SUBMITTED: A- Random colon biopsy, B- Polyp hepatic flexure 7mm hot snare, C- Polyp hepatic flexure 4mm biopsy, D- Distal transverse colon [id number] hot snare, E- Polyp descending colon hot snare 8mm, F- Descending colon polyp 4mm biopsy MICROSCOPIC DIAGNOSIS A. Colon, random biopsy: Fragments of colonic mucosa, no pathologic diagnosis. B. Polyp hepatic flexure, polypectomy: Tubular adenoma. C. Polyp hepatic flexure, biopsy: A fragment of colonic mucosa, no pathologic diagnosis. D. Distal transverse colon polyp, polypectomy: Fragments of tubular adenoma. E. Polyp descending colon, polypectomy: Tubular adenoma. F. Descending colon polyp, biopsy: Tubular adenoma. DUSTIN/ 10/20/23 MICROSCOPIC DESCRIPTION Slides are reviewed. GROSS DESCRIPTION A. Received in fixative is one container labeled with the patient's name and designated Colon random biopsy. The specimen consists of multiple irregular fragments of light laurent soft tissue that in aggregate measure 2.0 x 0.5 x 0.1 cm. The specimen is totally submitted in one cassette. B. Received in fixative is one container labeled with the patient's name and designated Polyp hepatic flexure 7mm hot snare. The specimen consists of one irregular fragment of light laurent soft tissue that measures 0.3 x 0.3 x 0.1 cm. The specimen is totally submitted in one cassette. C. Received in fixative is one container labeled with the patient's name and designated Polyp hepatic flexure 4mm biopsy. The specimen consists of one irregular fragment of light laurent soft tissue that measures 0.3 x 0.3 x 0.1 cm. The specimen is totally submitted in one cassette. D. Received in fixative is one container labeled with the patient's name and designated Distal transverse polyp 7mm hot snare. The specimen consists of two irregular fragments of light laurent soft tissue that in aggregate measure 0.6 x 0.3 x 0.1 cm. The specimen is totally submitted in one cassette. E. Received in fixative is one container labeled with the patient's name and designated Polyp descending colon 8mm hot snare. The specimen consists of one of light laurent-pink polyp that measures 0.4 x 0.4 x 0.2 cm. The specimen is totally submitted in one cassette. F. Received in fixative is one container labeled with the patient's name and designated Descending colon polyp 4mm biopsy. The specimen consists of one irregular fragments of light laurent soft tissue that measure 0.5 x 0.2 x 0.1 cm. The specimen is totally submitted in one cassette. DUSTIN/ 10/17/23 TC:1 CPT:75927e0
[2023-10-17 06:40] LABS: Bedside Glucose 103 mg/dL (74-106)
--- NOTE | 2023-10-17 07:07 | OP.COLON_ITS ---
Patient Name: Narinder Sapp Procedure Date: 10/17/2023 6:20 AM Date of : 1960 Age: 63 Procedure: Colonoscopy Indications: Clinically significant diarrhea of unexplained origin Providers: Nikhil Bennett MD Medicines: See the Anesthesia note for documentation of the administered medications Patient Profile: Last Colonoscopy: date unknown. Complications: No immediate complications. Procedure: Pre-Anesthesia Assessment: - Prior to the procedure, a History and Physical was performed, and patient medications and allergies were reviewed. The patient's tolerance of previous anesthesia was also reviewed. The risks and benefits of the procedure and the sedation options and risks were discussed with the patient. All questions were answered, and informed consent was obtained. Prior Anticoagulants: The patient has taken Coumadin (warfarin), last dose was 3 days prior to procedure. ASA Grade Assessment: III - A patient with severe systemic disease. After reviewing the risks and benefits, the patient was deemed in satisfactory condition to undergo the procedure. After I obtained informed consent, the scope was passed under direct vision. Throughout the procedure, the patient's blood pressure, pulse, and oxygen saturations were monitored continuously. The colonoscope was introduced through the anus and advanced to the cecum, identified by appendiceal orifice and ileocecal valve. The colonoscopy was performed without difficulty. The patient tolerated the procedure well. The quality of the bowel preparation was good. The ileocecal valve and the appendiceal orifice were photographed. Scope In: 6:28:39 AM Scope Withdrawal Time 0 hours 22 minutes 39 seconds Scope Out: 6:57:05 AM Total Procedure Duration Time 0 hours 28 minutes 26 seconds Findings: Hemorrhoids were found on perianal exam. Multiple diverticula were found in the sigmoid colon. A 7 mm polyp was found in the hepatic flexure. The polyp was sessile. The polyp was removed with a hot snare. Resection and retrieval were complete. A 4 mm polyp was found in the hepatic flexure. The polyp was sessile. The polyp was removed with a cold biopsy forceps. Resection and retrieval were complete. A 7 mm polyp was found in the distal transverse colon. The polyp was sessile. The polyp was removed with a hot snare. Resection and retrieval were complete. To prevent bleeding post-intervention, one hemostatic clip was successfully placed. There was no bleeding at the end of the procedure. An 8 mm polyp was found in the mid descending colon. The polyp was sessile. The polyp was removed with a hot snare. Resection and retrieval were complete. To prevent bleeding post-intervention, one hemostatic clip was successfully placed. There was no bleeding at the end of the procedure. Biopsies for histology were taken with a cold forceps from the entire colon for evaluation of microscopic colitis. Impression: - Hemorrhoids found on perianal exam. - Diverticulosis in the sigmoid colon. - One 7 mm polyp at the hepatic flexure, removed with a hot snare. Resected and retrieved. - One 4 mm polyp at the hepatic flexure, removed with a cold biopsy forceps. Resected and retrieved. - One 7 mm polyp in the distal transverse colon, removed with a hot snare. Resected and retrieved. Clip was placed. - One 8 mm polyp in the mid descending colon, removed with a hot snare. Resected and retrieved. Clip was placed. - Biopsies were taken with a cold forceps from the entire colon for evaluation of microscopic colitis. Additionally his stool was obtained in Lukey tube and sent for C. difficile culture and sensitivity Recommendation: - Discharge patient to home. - Resume previous diet. - Continue present medications. - Repeat colonoscopy in 3 years for surveillance of multiple polyps. - Telephone my office for pathology results in 1 week. Procedure Code(s): --- Professional --- 58569, Colonoscopy, flexible; with removal of tumor(s), polyp(s), or other lesion(s) by snare technique 86310, 59, Colonoscopy, flexible; with biopsy, single or multiple Diagnosis Code(s): --- Professional --- K64.9, Unspecified hemorrhoids D12.3, Benign neoplasm of transverse colon (hepatic flexure or splenic flexure) D12.4, Benign neoplasm of descending colon R19.7, Diarrhea, unspecified K57.30, Diverticulosis of large intestine without perforation or abscess without bleeding CPT copyright 2021 [employer]. All rights reserved. The codes documented in this report are preliminary and upon hr intern review may be revised to meet current compliance requirements. Nikhil Bennett MD 10/17/2023 7:06:48 AM This report has been signed electronically. Number of Addenda: 0 Note Initiated On: 10/17/2023 6:20 AM
--- NOTE | 2023-10-17 07:07 | OP.CCLET_ITS ---
10/17/2023 Ramsey Chairez [address] [place] [address] Re : Colonoscopy procedure for Narinder Sapp Dear Dr. Chairez This procedure was performed on Tuesday, October 17, 2023. My impressions and recommendations are as follows: Impressions : - Hemorrhoids found on perianal exam. - Diverticulosis in the sigmoid colon. - One 7 mm polyp at the hepatic flexure, removed with a hot snare. Resected and retrieved. - One 4 mm polyp at the hepatic flexure, removed with a cold biopsy forceps. Resected and retrieved. - One 7 mm polyp in the distal transverse colon, removed with a hot snare. Resected and retrieved. Clip was placed. - One 8 mm polyp in the mid descending colon, removed with a hot snare. Resected and retrieved. Clip was placed. - Biopsies were taken with a cold forceps from the entire colon for evaluation of microscopic colitis. Additionally his stool was obtained in Lukey tube and sent for C. difficile culture and sensitivity Recommendations : - Discharge patient to home. - Resume previous diet. - Continue present medications. - Repeat colonoscopy in 3 years for surveillance of multiple polyps. - Telephone my office for pathology results in 1 week. My findings are described in the full procedure note, which is enclosed. If I can be of further assistance, please feel free to contact me at Doctor phone number(s): Work: . Sincerely, Nikhil Bennett MD 10/17/2023 7:06:48 AM This report has been signed electronically.
== END 2023-10-17 08:18 | disposition home or self-care (01) ==
LOC: SDC 05:33 → AC 05:35
PROVIDERS: PCP Family Medicine; Referring Provider Surgery; Visit Provider Surgery
PROC: 0DJD8ZZ Inspection of Lower Intestinal Tract, Via Natural or Artificial Opening Endoscopic (ICD-10-PCS; CPT 45378; principal; 2023-10-17 06:25)
DX: R19.7 Diarrhea, unspecified (principal); I50.22 Chronic systolic (congestive) heart failure; I48.91 Unspecified atrial fibrillation; I42.9 Cardiomyopathy, unspecified; E11.22 Type 2 diabetes mellitus with diabetic chronic kidney disease; N18.30 Chronic kidney disease, stage 3 unspecified; I25.10 Atherosclerotic heart disease of native coronary artery without angina pectoris; K64.9 Unspecified hemorrhoids; K29.70 Gastritis, unspecified, without bleeding; K21.00 Gastro-esophageal reflux disease with esophagitis, without bleeding; K57.30 Diverticulosis of large intestine without perforation or abscess without bleeding; E78.2 Mixed hyperlipidemia; D12.3 Benign neoplasm of transverse colon; D12.4 Benign neoplasm of descending colon; Z95.810 Presence of automatic (implantable) cardiac defibrillator
CPT/HCPCS: 45380; 45385; 36416; 82962; 85610; 87506; 88305; J7120; J2405

== ENCOUNTER 2023-10-25 12:23 | Emergency (ER) | payer MEDICAID, SELFPAY ==
[2023-10-25] VITALS (7 sets, daily range): BP systolic 110–141; BP diastolic 59–77; PULSE 60–62; RESP 14–18; TEMP 36.1–36.6; O2SAT 97–99; BMI 42.1
--- NOTE | 2023-10-25 12:51 | RAD_ITS ---
EXAM: XR CHEST, 2 VIEWS CLINICAL INDICATION: cough TECHNIQUE: Frontal and lateral views of the chest. COMPARISON: XR Chest dated 09/05/2023 FINDINGS: LUNGS AND PLEURAL SPACES: Normal. No consolidation or edema. No pneumothorax. No effusion. HEART: Normal heart size. MEDIASTINUM: No mediastinal or hilar mass. BONES/JOINTS: Chronic left-sided rib fractures. LYMPH NODES: Calcified lymph node again seen. TUBES, LINES AND DEVICES: AICD wires remain in place. RAD/Chest PA and Lateral IMPRESSION: No acute cardiopulmonary abnormality. No interval change. Electronically Signed: Gigi Peck MD at 14:03 EDT ,
--- NOTE | 2023-10-25 12:51 | EKG12_ITS ---
Test Reason : SOB Blood Pressure : / mmHG Vent. Rate : 060 BPM Atrial Rate : 060 BPM P-R Int : 000 ms QRS Dur : 066 ms QT Int : 396 ms P-R-T Axes : 000 247 -29 degrees QTc Int : 396 ms Ventricular-paced rhythm Biventricular pacemaker detected Abnormal ECG Confirmed by ADDISON DUTTA, GERARDO ([id number]), photo editor TAMARA JENSEN ([id number]) on 10/27/2023 11:11:54 AM Referred By: KATIE/PREM Confirmed By:GERARDO JAIME MD
--- NOTE | 2023-10-25 12:56 | EX.ED.DYSGE1 ---
HPI <ELIANA Nunez - Last Filed: 10/25/23 15:19> History of Present Illness Chief Complaint: Edema Narrative Narrative: Patient is 63-year-old male with history of CHF, diabetes, hypertension, hyperlipidemia, obesity who presents to the emergency department 1 week of generalized cough, congestion, low-grade fever. He also states to have bilateral eye drainage over the last 2 to 3 days. [facility] referred him here for further workup. Patient states that he is not bringing up any sputum production. However he has felt worsening over the last week. He denies any chest pain. Shortness of breath worse with exertion. [facility] <ELIAAN Nunez - Last Filed: 10/25/23 15:19> [facility] Medical History (Updated 10/25/23 @ 15:16 by ELIANA Nunez) Atrial flutter Cancer Cardiology follow-up encounter Chronic systolic heart failure Contusion of left chest wall Contusion of right elbow CPAP (continuous positive airway pressure) dependence Depression Diabetes mellitus History of cardiac arrest History of Clostridium difficile infection History of echocardiogram History of edema History of stress test Left elbow contusion care home current use of anticoagulant Longstanding persistent atrial fibrillation Mixed hyperlipidemia Morbid obesity Multiple fractures of ribs, left side, initial encounter for closed fracture Non-Hodgkin lymphoma Non-ischemic cardiomyopathy Non-smoker Non-sustained ventricular tachycardia Nonobstructive atherosclerosis of coronary artery Obstructive sleep apnea Orthostatic hypotension Paroxysmal atrial fibrillation Pleural effusion, left Restless legs Shortness of breath on exertion Sleep apnea Wears glasses Home Medications ropinirole 0.25 mg tablet See Rx Instructions PO QHS 09/10/17 [History Last Taken Unknown] dulaglutide 0.75 mg/0.5 mL subcutaneous pen injector (Trulicity) 0.75 mg subcut QWEEK 09/16/17 [History Last Taken Unknown] sertraline 100 mg tablet 100 mg PO QDAY 09/16/17 [History Last Taken Unknown] carvedilol 6.25 mg tablet 6.25 mg PO BID 02/05/23 [History Last Taken Unknown] cyclobenzaprine 10 mg tablet 10 mg PO HS PRN muscle spasm #20 tabs 02/12/23 [Rx Last Taken Unknown] furosemide 20 mg tablet (Lasix) 20 mg PO DAILY 02/12/23 [History Last Taken Unknown] gabapentin 300 mg capsule 300 mg PO DAILY 05/28/23 [History Last Taken Unknown] methocarbamol 500 mg tablet 500 mg PO 4X/DAY PRN PRN Muscle pain/spasm #40 tabs 09/05/23 [Rx Last Taken Unknown] oxycodone-acetaminophen 5 mg-325 mg tablet (Percocet) 1 tab PO Q6H PRN pain 5 days #20 tabs 09/05/23 [Rx Last Taken Unknown] lovastatin 40 mg tablet 40 mg PO DAILY #90 tabs 10/01/23 [Rx Last Taken Unknown] insulin glargine 100 unit/mL subcutaneous solution (Lantus U-100 Insulin) 60 unit subcut QPM 10/14/23 [History Last Taken Unknown] insulin lispro 100 unit/mL subcutaneous pen 20 unit subcut TID 10/14/23 [History Last Taken Unknown] warfarin 3 mg tablet 3 mg PO MOTUWETH 10/14/23 [History Last Taken 10/13/23] warfarin 4 mg tablet 4.5 mg PO SUFRSA 10/14/23 [History Last Taken 10/13/23] albuterol sulfate 90 mcg/actuation aerosol inhaler (Ventolin HFA) 2 puff inhalation Q4H PRN PRN Wheezing #1 device 10/25/23 [Rx Last Taken Unknown] cefdinir 300 mg capsule 300 mg PO BID 10 days #20 caps 10/25/23 [Rx Last Taken Unknown] ciprofloxacin HCl 0.3 % eye drops 2 drp EACH EYE Q4H 5 days #5 mL 10/25/23 [Rx Last Taken Unknown] polymyxin B sulfate 10,000 unit-trimethoprim 1 mg/mL eye drops 1 drp ophthalmic (eye) Q3H 7 days #10 mL 10/25/23 [Rx Last Taken Unknown] Allergy/AdvReac Type Severity Reaction Status Date / Time Penicillins Allergy Unknown Verified 10/25/23 12:30 Sulfa (Sulfonamide Allergy Unknown Verified 10/25/23 12:30 Antibiotics) Family History Father , in his late 60's from an [place] CAD (coronary artery disease) Myocardial infarction Sudden cardiac Mother , Age 80, hx of CAD CAD (coronary artery disease) Brother CAD (coronary artery disease) Atrial fibrillation H/O cardiac radiofrequency ablation Cardiac pacemaker Brother unknown health history Brother CAD (coronary artery disease) Atrial fibrillation Other Family history of CVA Family history of hypertension Surgical History (Updated 10/15/23 @ 13:57 by Dilcia Londono) History of cardiac defibrillator placement (~2014) History of cataract surgery History of colonoscopy (~2014) History of esophagogastroduodenoscopy (EGD) (~2014) History of implantable cardiac defibrillator (ICD) History of radiofrequency ablation (RFA) procedure for cardiac arrhythmia (01/06/15) History of right and left heart catheterization (09/23/14) Hx of atrioventricular node ablation (01/06/15) Presence of biventricular implantable cardioverter-defibrillator (ICD) (01/06/15) Social History (Updated 10/14/23 @ 14:43 by Olimpia Kirk) Smoking Status: Never smoker alcohol intake: never substance use type: does not use ROS <ELIANA Nunez - Last Filed: 10/25/23 15:19> ROS ED ROS Narrative Constitutional: Negative for weight loss, weakness. Positive fever and chills Eyes: Negative for vision loss, vision change, double vision. Positive bilateral eye drainage ENT: Negative for any sore throat, ear pain, congestion Cardiovascular: Negative for any chest pain, tightness, palpitations Respiratory: Negative for any sputum production, hemoptysis, orthopnea. Positive for cough, dyspnea, dyspnea on exertion Gastrointestinal: Negative for any abdominal pain, nausea, vomiting, diarrhea, constipation, blood in stool, blood in vomit : Negative for any urinary frequency, dysuria, retention, blood in urine Muscle skeletal: Negative for any neck pain, back pain. Positive bilateral leg edema Neurological: Negative for any headache, syncope, dizziness Skin: Negative for any rashes, itching, abrasions, lacerations Psychiatric: Negative for any depression, anxiety, stress, suicidal ideation, homicidal ideation Hematologic: Negative for any excessive bruising, easy bleeding EXAM <ELIANA Nunez - Last Filed: 10/25/23 15:19> Physical Exam Narrative Exam Narrative: Vital signs reviewed. HEET: Head normocephalic atraumatic, TMs clear bilaterally. Posterior pharynx is clear, moist mucous membranes. Nares clear bilaterally. Pupils are equal round reactive to light. Patient does have gross drainage to the corners of his eyes, yellow to green. Neck: Supple with no lymphadenopathy or tenderness. No signs of meningismus. Cardiac: Regular rate and rhythm no murmurs gallops or rubs, equal peripheral pulses bilaterally. Respiratory: Expiratory wheezes to bilateral lower lung bases, right worse than the left. No chest tenderness. Abdomen: Soft, nontender, nondistended. No abdominal bruit or pulsatile masses. No hepatosplenomegaly Extremities: +2 pitting edema to bilateral lower extremities, no signs of gross trauma or deformity. Active full range of motion of all extremities. Neuro: Cranial nerves II through XII intact, no focal neurological deficits. Skin: Clean dry and intact with no rash, purpura, petechiae, vesicles or pustules. Backs/flank: No CVA tenderness, no midline spinal tenderness, no deformity. Psych: Normal mood and affect. No SI, HI or acute psychosis. Const Vital Signs: 10/25/23 12:24 10/25/23 12:30 10/25/23 12:54 Temperature 97.5 F L 97 F L Temperature Source Temporal Temporal Pulse Rate 60 60 Respiratory Rate 16 18 Respiratory Pattern Blood Pressure 141/77 H 127/74 H Blood Pressure Mean 98 91 Pulse Ox 99 97 98 Oxygen Delivery Method Room Air Room Air Room Air 10/25/23 13:09 10/25/23 14:10 10/25/23 15:22 Temperature 98 F Temperature Source Pulse Rate 60 62 60 Respiratory Rate 16 16 14 Respiratory Pattern Normal Blood Pressure 122/66 H 110/59 L Blood Pressure Mean 84 76 Pulse Ox 98 97 Oxygen Delivery Method Room Air <Dr. Cuong Reyes DO - Last Filed: 10/25/23 23:44> Physical Exam Const Vital Signs: 10/25/23 12:24 10/25/23 12:30 10/25/23 12:54 Temperature 97.5 F L 97 F L Temperature Source Temporal Temporal Pulse Rate 60 60 Respiratory Rate 16 18 Respiratory Pattern Blood Pressure 141/77 H 127/74 H Blood Pressure Mean 98 91 Pulse Ox 99 97 98 Oxygen Delivery Method Room Air Room Air Room Air 10/25/23 13:09 10/25/23 14:10 10/25/23 15:22 Temperature 98 F Temperature Source Pulse Rate 60 62 60 Respiratory Rate 16 16 14 Respiratory Pattern Normal Blood Pressure 122/66 H 110/59 L Blood Pressure Mean 84 76 Pulse Ox 98 97 Oxygen Delivery Method Room Air MDM <ELIANA Nunez - Last Filed: 10/25/23 15:19> [facility] Lab Data Labs: Laboratory Results - last 24 hr 10/25/23 13:05 WBC 8.4 RBC 4.18 L Hgb 12.6 L Hct 38.5 L MCV 92.1 MCH 30.1 MCHC 32.7 RDW Std Deviation 45.1 H RDW Coeff of Ladan 13.3 Plt Count 176 MPV 11.0 Immature Gran % (Auto) 0.400 Neut % (Auto) 68.0 Lymph % (Auto) 19.1 [place] % (Auto) 9.5 Eos % (Auto) 2.8 Baso % (Auto) 0.2 Absolute Neuts (auto) 5.7 Absolute Lymphs (auto) 1.61 Nucleated RBC % 0 PT 16.3 H INR 1.3 Sodium 140 Potassium 4.8 Chloride 111 H Carbon Dioxide 26.0 Anion Gap 3 L BUN 22 H Creatinine 1.21 Estim Creat Clear Calc 91.02 Est GFR (MDRD) Af Amer 78 Est GFR (MDRD) Non-Af 64 BUN/Creatinine Ratio 18.2 Glucose 92 Calcium 8.6 Troponin I High Sens 9 B-Natriuretic Peptide 102.7 H Radiography Diagnostic Testing: Clinical Impression(s) from Imaging Studies Chest X-Ray 10/25/23 12:51 IMPRESSION: No acute cardiopulmonary abnormality. No interval change. Electronically Signed: Gigi Peck MD at 14:03 EDT , EKG Ventricular paced rhythm, rate of 60: Attestation: I personally reviewed and interpreted this EKG as follows: Comments: Ventricular paced rhythm, rate of 60 bpm, QRS duration 66 ms, no acute ST elevation, no acute infarct noted. Treatment and Re-Evaluation :: Differential diagnosis includes however is not limited to: CHF, ACS, [place], pneumonia, COVID-19, influenza, sinusitis conjunctivitis Patient appears to be in no obvious respiratory distress, at rest, patient's vital signs are stable. Presenting to the emergency department with complaints of cough, congestion, bilateral lower leg swelling getting worse over the last week. Patient will receive a full cardiac workup including breathing treatments troponin, BNP. Patient received a two-view chest x-ray, patient be reevaluated after breathing treatments. All radiologic examinations were read, reviewed by the emergency department attending. From these reads, a plan of care will be put in place. Patient received breathing treatments, patient did have some improvement. Patient's CBC was unremarkable, slight anemia with a hemoglobin of 12.6, patient's PT/INR showed a PT of 16.3, INR of 1.3, it seems the patient ranges anywhere from 2.3-1.3 over the last year. Patient's chemistries were unremarkable, troponin was negative. EKG showed paced rhythm, no acute ACS or TN. Patient's BNP was slightly elevated at 102.7, patient normal is 63-1 50. Patient's chest x-ray two-view shows no acute cardiopulmonary abnormality. No interval change. At this time, patient's COVID-19 influenza was negative. Patient will be ambulatory with a pulse oximeter to ensure that the patient maintains his oxygen saturation. Patient did not drop below 93%. At this time, do believe the patient can be treated with eyedrops for conjunctivitis as well as cefdinir. Patient will also be given an albuterol inhaler. Instructed to use this as needed. He will follow-up closely with his PCP. Patient is happy with the plan of care, all questions answered, patient stable for discharge. At this time, there is no evidence of any ACS, TN, CHF. <Dr. Cuong Reyes, DO - Last Filed: 10/25/23 23:44> [facility] Narrative Medical decision making narrative: I, Dr Reyes, have reviewed the above progress note and course of action in the ER; and I agree with the above. I have personally seen and evaluated this patient. I have gone over history and physical, and also discussed disposition and treatment plan with the patient. Lab Data Labs: Laboratory Results - last 24 hr 10/25/23 13:05 WBC 8.4 RBC 4.18 L Hgb 12.6 L Hct 38.5 L MCV 92.1 MCH 30.1 MCHC 32.7 RDW Std Deviation 45.1 H RDW Coeff of [place] 13.3 Plt Count 176 MPV 11.0 Immature Gran % (Auto) 0.400 Neut % (Auto) 68.0 Lymph % (Auto) 19.1 [place] % (Auto) 9.5 Eos % (Auto) 2.8 Baso % (Auto) 0.2 Absolute Neuts (auto) 5.7 Absolute Lymphs (auto) 1.61 Nucleated RBC % 0 PT 16.3 H INR 1.3 Sodium 140 Potassium 4.8 Chloride 111 H Carbon Dioxide 26.0 Anion Gap 3 L BUN 22 H Creatinine 1.21 Estim Creat Clear Calc 91.02 Est GFR (MDRD) Af Amer 78 Est GFR (MDRD) Non-Af 64 BUN/Creatinine Ratio 18.2 Glucose 92 Calcium 8.6 Troponin I High Sens 9 B-Natriuretic Peptide 102.7 H Radiography Diagnostic Testing: Clinical Impression(s) from Imaging Studies Chest X-Ray 10/25/23 12:51 IMPRESSION: No acute cardiopulmonary abnormality. No interval change. Electronically Signed: Gigi Peck MD at 14:03 EDT , Discharge Plan Triage Chief Complaint: Edema ED Midlevel Provider: Jonny Anna ED Provider: Cuong Reyes Dx/Rx/DC Orders Clinical Impression: URI (upper respiratory infection), Leg edema, Conjunctivitis Instructions: Conjunctivitis Caused by Infection, ED URI, Viral W/ Wheezing (Adult) Prescriptions: New cefdinir 300 mg capsule 300 mg PO BID 10 Days Qty: 20 0RF ciprofloxacin HCl 0.3 % drops 2 drp EACH EYE Q4H 5 Days Qty: 5 0RF Rx Instructions: administer while awake albuterol sulfate [Ventolin HFA] 90 mcg/actuation HFA aerosol inhaler 2 puff inhalation Q4H PRN PRN (Reason: Wheezing) Qty: 1 1RF No Action ropinirole 0.25 mg tablet See Rx Instructions PO QHS Patient Comments: 0.25 MG, 1-2 Tablets PO QHS Rx Instructions: 0.25 MG, 1-2 Tablets PO QHS sertraline 100 mg tablet 100 mg PO QDAY dulaglutide [Trulicity] 0.75 mg/0.5 mL pen injector 0.75 mg SC QWEEK gabapentin 300 mg capsule 300 mg PO DAILY Rx Instructions: 100 mg also carvedilol 6.25 mg tablet 6.25 mg PO BID Rx Instructions: must administer with a meal/food cyclobenzaprine 10 mg tablet 10 mg PO HS PRN (Reason: muscle spasm) Qty: 20 0RF Rx Instructions: AFTER work hours only furosemide [Lasix] 20 mg tablet 20 mg PO DAILY insulin glargine [Lantus U-100 Insulin] 100 unit/mL solution 60 unit subcut QPM warfarin 4 mg tablet 4.5 mg PO SUFRSA Protocol: Dose Management Condition: Friday Dose/Route: 1.5 mg Instruction: 0.5 x 3 mg tablets Condition: Friday Dose/Route: 3 mg Instruction: 1 x 3 mg tablet Condition: Friday Dose/Route: 3 mg Instruction: 1 x 3 mg tablet Condition: Friday Dose/Route: 3 mg Instruction: 1 x 3 mg tablet Condition: Dose/Route: 3 mg Instruction: 1 x 3 mg tablet Condition: Friday Dose/Route: 1.5 mg Instruction: 0.5 x 3 mg tablets Condition: Friday Dose/Route: 1.5 mg Instruction: 0.5 x 3 mg tablets Protocol Text: Adjustment Start Date: 10/16/23 INR Value: 2.3 INR Date: 09/12/23 Recheck Date: 10/30/23 warfarin 3 mg tablet 3 mg PO MOTUWETH Protocol: Dose Management Condition: Friday Dose/Route: 1.5 mg Instruction: 0.5 x 3 mg tablets Condition: Friday Dose/Route: 3 mg Instruction: 1 x 3 mg tablet Condition: Friday Dose/Route: 3 mg Instruction: 1 x 3 mg tablet Condition: Friday Dose/Route: 3 mg Instruction: 1 x 3 mg tablet Condition: Dose/Route: 3 mg Instruction: 1 x 3 mg tablet Condition: Friday Dose/Route: 1.5 mg Instruction: 0.5 x 3 mg tablets Condition: Friday Dose/Route: 1.5 mg Instruction: 0.5 x 3 mg tablets Protocol Text: Adjustment Start Date: 10/16/23 INR Value: 2.3 INR Date: 09/12/23 Recheck Date: 10/30/23 insulin lispro 100 unit/mL insulin pen 20 unit subcut TID polymyxin B sulf-trimethoprim 10,000 unit- 1 mg/mL drops 1 drp ophthalmic (eye) Q3H 7 Days Qty: 10 0RF Rx Instructions: while awake; do not exceed 6 doses in 24 hours oxycodone-acetaminophen [Percocet] 5-325 mg tablet 1 tab PO Q6H PRN (Reason: pain) 5 Days Qty: 20 0RF methocarbamol 500 mg tablet 500 mg PO 4X/DAY PRN PRN (Reason: Muscle pain/spasm) Qty: 40 0RF lovastatin 40 mg tablet 40 mg PO DAILY Qty: 90 3RF Primary Care Provider: Ramsey Chairez Referrals: Ramsey Chairez MD [Primary Care Provider] - Activity Restrictions/Additional Instructions: You should start to improve the next 3 to 4 days, please return for any worsening symptoms. Disposition Disposition: Home, Self Care Discharge Date/Time: 10/25/23 15:42
[2023-10-25] MEDS: Albuterol 2.5 MG/3 ML VIAL.NEB. 5 MG INHALATION (13:04)
[2023-10-25] MEDS: Ipratropium/Albuterol Sulfate 3 ML AMPUL.NEB INHALATION (13:04)
[2023-10-25 13:15] LABS: Absolute Lymphocyte Count 1.61 X10^3/uL (0.83-4.51); Absolute Neutrophil Count 5.7 X10^3/uL (2.0-7.7); Basophil# 0.02 X10^3/uL; Basophil% 0.2 % (0-1); Eosinophil# 0.24 X10^3/uL; Eosinophils% 2.8 % (0-5); Hematocrit 38.5 % (40-54); Hemoglobin 12.6 g/dL (13.0-16.5); Lymphocyte # 1.61 X10^3/ul (0.83-4.51); Lymphocyte % 19.1 % (19-41); Mean Corp Hgb Conc 32.7 g/dL (32-36); Mean Corpuscular Hgb 30.1 pg (27.0-32.0); Mean Corpuscular Volume 92.1 fL (80-94); Monocyte% 9.5 % (0-10); NRBC Flagged by Analyzer 0 % (0-5); Neutrophil # 5.73 X10^3/uL (2.7-7.7); Platelet Count 176 K/mm3 (150-450); RBC Distribution Width CV 13.3 % (11.6-14.6); RBC Distribution Width SD 45.1 fl (35.1-43.9); Red Blood Count 4.18 M/mm3 (4.6-6.2); White Blood Count 8.4 K/mm3 (4.4-11.0)
[2023-10-25 13:31] LABS: Anion Gap 3 (5-15); BUN 22 mg/dL (7-18); BUN/Creat Ratio 18.2 RATIO (10-20); Calcium,Total 8.6 mg/dL (8.5-10.1); Chloride 111 mmol/L (98-107); Creatinine, Serum 1.21 mg/dL (0.70-1.30); EST Glomerular Filtration Rate 64 mL/min (>60); Est Glom Filt Rate - Afr Amer 78 mL/min (>60); Estimated Creatinine Clearance 91.02 ml/min; Glucose 92 mg/dL (74-106); International Normalized Ratio 1.3; Potassium 4.8 mmol/L (3.5-5.1); Prothrombin Time (Protime)PT. 16.3 SECONDS (11.7-14.9); Sodium Level 140 mmol/L (136-145); Troponin-I HS 9 pg/mL (3.0-78.0)
[2023-10-25 13:38] LABS: BNP,B-Type NATRIURETIC PEPTIDE 102.7 pg/mL (0-100)
== END 2023-10-25 15:42 | disposition home or self-care (01) ==
PROVIDERS: Nurse Practitioner; Emergency Provider Emergency Medicine; PCP Family Medicine; Visit Provider Emergency Medicine
DX: J06.9 Acute upper respiratory infection, unspecified (principal); I50.9 Heart failure, unspecified; E11.9 Type 2 diabetes mellitus without complications; H10.9 Unspecified conjunctivitis; G47.33 Obstructive sleep apnea (adult) (pediatric)
CPT/HCPCS: 71046; 80048; 83880; 84484; 85025; 85610; 87631; 93005; 94640; 99284

== ENCOUNTER → 2023-11-20 | Outpatient (CLI) | payer MEDICAID, SELFPAY ==
[2023-11-26 16:10] LABS: Immunoglobulin A 317 mg/dL (61-437); Immunoglobulin E 281 IU/mL (6-495); Immunoglobulin G 1146 mg/dL (603-1613); Immunoglobulin M 116 mg/dL (20-172)
== END | disposition home or self-care (01) ==
LOC: LAB 14:25
PROVIDERS: PCP Family Medicine; Referring Provider Internal Medicine Pulmonary Disease; Visit Provider Internal Medicine Pulmonary Disease
DX: R06.02 Shortness of breath (principal); R05.9 Cough, unspecified
CPT/HCPCS: 36415; 82784; 82785

== ENCOUNTER → 2024-08-16 | Outpatient (CLI) | payer MEDICAID, SELFPAY ==
--- NOTE | 2024-08-16 11:00 | ECHOCS_ITS ---
Reason For Study: SHORTNESS OF BREATH Procedure This was a 2D Doppler, Color Flow transthoracic echocardiogram. Contrast injection was performed. The study was technically difficult. Exam performed in department. Left Ventricle Normal LV size. Left ventricular systolic function is normal. Stage 1 diastolic dysfunction. The left ventricular ejection fraction is 55 %. No regional wall motion abnormalities noted. Right Ventricle Normal RV size. Normal systolic function. Atria Normal left atrium. Normal right atrium. Mitral Valve Normal mitral valve. Tricuspid Valve Normal tricuspid valve. Great Vessels Normal aortic root. Pericardium/Pleural No pericardial effusion. Medication 22 gauge I.V. with prn adaptor inserted into right arm. Diluted definity 3ml given slow IV push to enhance endocardial definition. MMode/2D Measurements & Calculations LVIDd: 5.3 cm IVSd: 1.1 cm LVOT diam: 2.1 cm LVIDs: 2.9 cm LVPWd: 1.1 cm LVOT area: 3.5 cm2 RVDd: 4.8 cm FS: 44.6 % _ asc Aorta Diam: 3.6 cm LAV(MOD-bp): 72.8 ml LVAd ap4: 30.7 cm2 LAV(MOD-bp) Indexed: 28.2 ml/m2 LVLd ap4: 7.4 cm LAV(MOD-sp2): 58.3 ml EDV(MOD- sp4): 107.4 ml LAV(MOD-sp4): 90.3 ml EDV(sp4- el): 107.7 ml LVAs ap4: 19.6 cm2 LVLs ap4: 6.5 cm ESV(MOD- sp4): 49.7 ml ESV(sp4- el): 50.4 ml EF(MOD- sp4): 53.8 % EF(sp4- el): 53.2 % _ SV(MOD-sp4): 57.8 ml SV(MOD- sp2): 63.5 ml LVAd ap2: 33.8 cm2 LVLd ap2: 7.9 cm SI(MOD-sp4): 22.4 ml/m2 SI(MOD- sp2): 24.6 ml/m2 EDV(MOD-sp2): 117.9 ml EDV(sp2-el): 123.1 ml LVAs ap2: 21.8 cm2 LVLs ap2: 7.3 cm ESV(MOD-sp2): 54.4 ml ESV(sp2-el): 55.0 ml EF(MOD-sp2): 53.9 % _ SV(sp4-el): 57.3 ml Ao sinus diam: 3.2 cm LA A4 area: 26.4 cm2 _ LA dimension(2D): 5.5 cm TAPSE: 2.1 cm RA A4 area: 28.0 cm2 Time Measurements MV dec time: 0.13 sec Doppler Measurements & Calculations MV E max kvng: 98.2 cm/sec Lat Peak E' Kvng: 13.1 cm/sec Med Peak E' Kvng: 18.9 cm/sec E/E' lat: 7.5 E/E' med: 5.2 _ Ao V2 max: 121.6 cm/sec LV V1 max: 98.4 cm/sec SV(LVOT): 72.9 ml Ao max P.9 mmHg LV V1 max P.9 mmHg Ao V2 mean: 90.1 cm/sec LV V1 mean P.4 mmHg Ao mean P.5 mmHg LV V1 mean: 74.1 cm/sec Ao V2 VTI: 23.2 cm LV V1 VTI: 21.0 cm AV (velocity ratio): 0.91 VIKRAM(I,D): 3.1 cm2 VIKRAM(V,D): 2.8 cm2 _ PA V2 max: 86.0 cm/sec ECHO/Echo Complete W/ Contrast Interpretation Summary Normal LV size. Left ventricular systolic function is normal. Stage 1 diastolic dysfunction. The left ventricular ejection fraction is 55 %. Contrast injection was performed. Ordering Physician: Nikhil Kelly V Referring Physician: MD Ramsey Chairez Performed By: Wendy Benz RDCS
== END | disposition home or self-care (01) ==
PROVIDERS: PCP Family Medicine; Referring Provider Internal Medicine Pulmonary Disease; Visit Provider Internal Medicine Pulmonary Disease
DX: R06.02 Shortness of breath (principal); R05.9 Cough, unspecified
CPT/HCPCS: 93306; Q9957; A4216; C8929

== ENCOUNTER → 2024-11-01 | Outpatient (CLI) | payer MEDICAID, SELFPAY ==
--- NOTE | 2024-11-01 19:15 | CT_ITS ---
PROCEDURE: CHEST WITHOUT CONTRAST 11/01/2024 REASON FOR EXAM: DYSPENIA TECHNIQUE: Chest CT without contrast. Coronal and Sagittal reconstruction series were provided. One or more dose reduction techniques were used (e.g., Automated exposure control, adjustment of the mA and/or kV according to patient size, use of iterative reconstruction technique RADIATION DOSE SUMMARY: CTDlvol: 19.95 mGy DLP: 772.61 mGycm COMPARISON: None available FINDINGS: [place] artifact from multi lead right chest AICD. The central airways are patent. Multiple bilateral calcified pulmonary granulomas. The lungs are clear. Calcified prevascular mediastinal nodes. Thoracic aorta appears within limits on noncontrast imaging. Heavy appearing LAD coronary calcification. Prominence of the pulmonary artery measuring 3.4 cm can be seen with pulmonary artery hypertension, nonspecific. No pericardial or pleural effusion. Limited images of the upper abdomen are within limits. Bilateral upper chest collateral varices. Old posterior rib fracture deformities. CT/Chest without Contrast IMPRESSION: Heavy appearing LAD coronary calcification. Prominence of the pulmonary artery measuring 3.4 cm can be seen with pulmonary artery hypertension, nonspecific. Reading Location: [id number]
== END | disposition home or self-care (01) ==
LOC: CT 19:10
PROVIDERS: PCP Family Medicine; Referring Provider Internal Medicine Pulmonary Disease; Visit Provider Internal Medicine Pulmonary Disease
DX: R06.00 Dyspnea, unspecified (principal)
CPT/HCPCS: 71250